=== PATIENT | male | born 1955 | race Caucasian/White ===

== ENCOUNTER 2017-03-26 16:45 | Inpatient (IN) | payer BC ==
[~2017-03-26] VITALS: Ht 172.7 cm; Wt 108.1 kg
[2017-03-26] MEDS ORDERED: SODIUM CHLOR 0.9% 1000 ML INJ 1,000 ML IV ONE ×3 (16:57→20:15)
[2017-03-26] MEDS ORDERED: VANCOMYCIN INJ 1,000 MG in SODIUM CHLOR 0.9% 250 ML INJ 250 ML IV STA (16:57)
[2017-03-26] MEDS ORDERED: PIPERACIL-TAZO 4.5 GM PREMIX 100 ML IV STA (16:57)
[2017-03-26] MEDS ORDERED: ONDANSETRON HCL 4 MG/2 ML VIAL IV PUSH ONE (17:00)
[2017-03-26] MEDS ORDERED: ACETAMINOPHEN 325 MG TAB PO ONE (17:00)
--- NOTE | 2017-03-26 17:34 | RADRPT ---
EXAM DATE/TIME: 03/26/2017 17:06 [facility] COMPARISON: No previous studies available for comparison. INDICATIONS : Fever since yesterday. flu-like symptoms since tuesday. MEDICAL HISTORY : Hypertension. SURGICAL HISTORY : Unobtainable. ENCOUNTER: Initial ACUITY: 2 days PAIN SCORE: 0/10 LOCATION: Bilateral chest FINDINGS: The cardiac silhouette is enlarged in transverse diameter. The lungs are free of acute parenchymal op acity. No effusions are identified. Osseous structures are intact. Epidural leads are present in the mid thoracic spine CONCLUSION: Cardiomegaly. No acute cardiopulmonary disease. Saulo Abdi MD on March 26, 2017 at 17:31 Board Certified Radiologist. This report was verified electronically.
[2017-03-26] MEDS ORDERED: OXYC1TAB36 PO ×2 (17:54)
[2017-03-26 17:59] VITALS: BP 122/67; PULSE 71; RESP 24; TEMP 102.8; O2SAT 97
[2017-03-26] MEDS ORDERED: OXYC-405 PO ×2 (17:59)
[2017-03-26] MEDS ORDERED: TRAZ100T10 PO (17:59)
[2017-03-26] MEDS ORDERED: MORPHINE SULFATE 2 MG/ML INJ IV PUSH ONE (18:15)
[2017-03-26] MEDS ORDERED: HYDROmorphone HCL PF 2 MG/ML VIAL IV PUSH ONE ×2 (18:45→20:15)
[2017-03-26 18:59] LABS: AUTOMATED NEUTROPHIL # 7.3 TH/MM3 (1.8-7.7); BASOPHIL % 0.2 % (0.0-2.0); EOSINOPHIL % 0.1 % (0.0-4.0); HEMATOCRIT 46.3 % (39.0-51.0); HEMOGLOBIN 16.2 GM/DL (13.0-17.0); LYMPH % 2.1 % (9.0-44.0); LYMPHOCYTE # 0.2 TH/MM3 (1.0-4.8); MEAN CELL VOLUME 92.1 FL (80.0-100.0); MEAN CORPUSCULAR HEMOGLOBIN 32.3 PG (27.0-34.0); MEAN PLATELET VOLUME 7.7 FL (7.0-11.0); MONO % 3.3 % (0.0-8.0); MONOCYTE # 0.3 TH/MM3 (0-0.9); NEUT % 94.3 % (16.0-70.0); PLATELET COUNT 152 TH/MM3 (150-450); RED BLOOD COUNT 5.02 MIL/MM3 (4.50-5.90); RED CELL DISTRIBUTION WIDTH 13.4 % (11.6-17.2); WHITE BLOOD COUNT 7.8 TH/MM3 (4.0-11.0)
[2017-03-26 19:07] LABS: INTERNATIONAL NORMALIZED RATIO 1.2 RATIO; PROTHROMBIN TIME - PATIENT 12.1 SEC (9.8-11.6)
[2017-03-26 19:10] LABS: ALT (GPT) 36 U/L (12-78)
[2017-03-26 19:12] LABS: ALKALINE PHOSPHATASE 69 U/L (45-117); AST (GOT) 31 U/L (15-37); BICARBONATE 27.7 MEQ/L (21.0-32.0); BLOOD UREA NITROGEN 22 MG/DL (7-18); CALCIUM 8.2 MG/DL (8.5-10.1); CHLORIDE 100 MEQ/L (98-107); CREATININE 1.44 MG/DL (0.60-1.30); GLOMERULAR FILTRATION RATE 50 ML/MIN (>89); GLUCOSE,RANDOM 165 MG/DL (74-106); LIPASE 59 U/L (73-393); MAGNESIUM 1.7 MG/DL (1.5-2.5); SODIUM (NA) 135 MEQ/L (136-145); TOTAL BILIRUBIN ADULT 0.4 MG/DL (0.2-1.0); TOTAL PROTEIN 6.9 GM/DL (6.4-8.2)
[2017-03-26 19:42] VITALS: BP 88/54; PULSE 64; RESP 18; O2SAT 99
[2017-03-26] MEDS ORDERED: IOHEXOL 350 MG/ML 10 ML VIAL (for RAD DIAG) IVCONTRAST ONE (20:39)
--- NOTE | 2017-03-26 20:48 | RADRPT ---
EXAM DATE/TIME: 03/26/2017 20:18 [facility] COMPARISON: No previous studies available for comparison. INDICATIONS : Trauma, slipped off bed. RADIATION DOSE: 64.08 CTDIvol (mGy) ; Tabletop CT Head MEDICAL HISTORY : Hypertension. SURGICAL HISTORY : None. ENCOUNTER: Initial ACUITY: 1 day PAIN SCALE: 5/10 LOCATION: cranial TECHNIQUE: Multiple contiguous axial images were obtained of the head. Using automated exposure control and adj ustment of the mA and/or kV according to patient size, radiation dose was kept as low as reasonably a chievable to obtain optimal diagnostic quality images. DICOM format image data is available electro nically for review and comparison. FINDINGS: CEREBRUM: The ventricles are normal for age. No evidence of midline shift, mass lesion, hemorrhage or acute in farction. No extra-axial fluid collections are seen. POSTERIOR FOSSA: The cerebellum and brainstem are intact. The 4th ventricle is midline. The cerebellopontine angle i s unremarkable. EXTRACRANIAL: The visualized portion of the orbits is intact. SKULL: The calvaria is intact. No evidence of skull fracture. CONCLUSION: No acute disease. No evidence of acute infarct, hemorrhage, mass or edema. Arnoldo Caba MD on March 26, 2017 at 20:44 Board Certified Radiologist. This report was verified electronically.
--- NOTE | 2017-03-26 21:00 | PD ---
HPI Chief Complaint: Pain: Acute or Chronic Time Seen by Provider: 16:50 Travel History International Travel<30 days: No Contact w/Intl Traveler<30days: No Traveled to known affect area: No History of Present Illness HPI 61-year-old male that presents to the ED for evaluation of pain in the back and fever. Per patient on Tuesday of this week he had CT myelogram read the did a lumbar puncture as well. Per patient ever since the procedures his been having more pain that is new to him. Per patient she's had chronic back pain for almost 4 years now. Per patient he is had nerve stimulator on his back as well as surgeries to his back. Per patient he was having this procedure done to see whether anything else can be done for him. He states they for the most part he is able to take care of his pain with his pain medications but this pain per patient feels no. Per patient since he's been feeling weak as well as having a pain that feels like somebody is hitting him with a baseball bat. Per patient is feels more like a spasm. Comes and goes. Per patient he becomes 10 out of 10. Per patient yesterday he started developing a fever and noticing that he had chills and sweats. No chest pain or shortness of breath. No urinary or bowel movement issues. Per patient she's had some nausea and vomiting for the past 2 days as well. He is not sure this is related. He states that he went to see his back doctor yesterday and he was evaluated but at the time he was vociferous that he was having more pain having no symptoms and nothing was done. They per patient told him that he might have an infection but the one specific. The did not send him to an ER told him to do anything else. He has no allergies to medication. Per patient she's been taking his pain medications with no relief. He denies any fall. Today he was on the way to come to the ER but he could not get up on his own so ambulance was called he was brought by ambulance. [facility]LY [facility] Past Medical History Diminished Hearing: Yes Hypertension: Yes Musculoskeletal: Yes (CHRONIC BACK PAIN) Influenza Vaccination: Yes Past Surgical History Other Surgery: Yes (LITHOTRIPSY) Social History Alcohol Use: Yes (OCCASIONALLY) Tobacco Use: No Substance Use: No Allergies-Medications (Allergen,Severity, Reaction): Coded Allergies: No Known Allergies (Unverified , 03/26/17) Reported Meds & Prescriptions Reported Meds & Active Scripts Active Reported Oxycodone ER (Oxycodone HCl) 20 Mg Tab 20 Mg PO Q12HR Trazodone (Trazodone HCl) 100 Mg Tablet 250 Mg PO HS Oxycodone-Acetaminophen 10-325 mg Tab 1 Tab PO Q6H PRN Review of Systems Except as stated in HPI: all other systems reviewed are Neg Physical Exam Narrative GENERAL: SKIN: Warm and dry. HEAD: Atraumatic. Normocephalic. EYES: Pupils equal and round. No scleral icterus. No injection or drainage. ENT: No nasal bleeding or discharge. Mucous membranes pink and moist. Tongue is midline. No uvula deviation. TMs are clear with no sign of infection or perforation. No lymphadenopathy noted. NECK: Trachea midline. No JVD. CARDIOVASCULAR: Regular rate and rhythm. No murmurs, S3, S4. RESPIRATORY: No accessory muscle use. Clear to auscultation. Breath sounds equal bilaterally. GASTROINTESTINAL: Abdomen soft, non-tender, nondistended. Hepatic and splenic margins not palpable. MUSCULOSKELETAL: Extremities without clubbing, cyanosis, or edema. No obvious deformities. Full range of motion of the upper and lower extremities bilaterally. 2+ pulses bilaterally. There are to palpation on the lumbar back but no obvious spinal process tenderness. Patient does not appear to have any signs of infection of the surgical sites of the lumbar area. Straight leg test negative bilaterally with exception of the right leg where he has pain with flexion of the hip. NEUROLOGICAL: Awake and alert. No obvious cranial nerve deficits. Motor grossly within normal limits. Five out of 5 muscle strength in the arms and legs. Normal speech. PSYCHIATRIC: Appropriate mood and affect; insight and judgment normal. Data Data Last Documented VS Vital Signs Date Time Temp Pulse Resp B/P (MAP) Pulse Ox O2 Delivery O2 Flow Rate FiO2 03/26/17 21:59 98.6 03/26/17 21:14 57 18 95 Room Air 03/26/17 17:59 2.00 Orders Orders Sepsis Workup Initiated (03/26/17 ) Electrocardiogram (03/26/17 16:57) Complete Blood Count With Diff (03/26/17 16:57) Comprehensive Metabolic Panel (03/26/17 16:57) Prothrombin Time / Inr (Pt) (03/26/17 16:57) Act Partial Throm Time (Ptt) (03/26/17 16:57) Lactic Acid Sepsis Protocol (03/26/17 16:57) Magnesium (Mg) (03/26/17 16:57) Lipase (03/26/17 16:57) Urinalysis - C+S If Indicated (03/26/17 16:57) Influenzae A/B Antigen (03/26/17 16:57) Blood Culture (03/26/17 16:57) Chest, Single Ap (03/26/17 16:57) Blood Glucose (03/26/17 16:57) Ecg Monitoring (03/26/17 16:57) Iv Access Insert/Monitor (03/26/17 16:57) Oximetry (03/26/17 16:57) Oxygen Administration (03/26/17 16:57) Acetaminophen (Tylenol) (03/26/17 17:00) Ondansetron Inj (Zofran Inj) (03/26/17 17:00) Sodium Chlor 0.9% 1000 Ml Inj (Ns 1000 M (03/26/17 16:57) Sodium Chlor 0.9% 1000 Ml Inj (Ns 1000 M (03/26/17 16:57) Ct Brain W/O Iv Contrast(Rout) (03/26/17 ) Ct Abd/Pel W Iv Contrast(Rout) (03/26/17 ) Vancomycin Inj (Vancomycin Inj) (03/26/17 16:57) Piperacil-Tazo 4.5 Gm Premix (Zosyn 4.5 (03/26/17 16:57) Morphine Inj (Morphine Inj) (03/26/17 18:15) Hydromorphone Pf Inj (Dilaudid Pf Inj) (03/26/17 18:45) Sodium Chlor 0.9% 1000 Ml Inj (Ns 1000 M (03/26/17 20:15) Hydromorphone Pf Inj (Dilaudid Pf Inj) (03/26/17 20:15) Iohexol 350 Inj (Omnipaque 350 Inj) (03/26/17 20:39) Admit Order (Ed Use Only) (03/26/17 22:26) Labs Laboratory Tests Test 03/26/17 17:33 03/26/17 20:40 White Blood Count 7.8 TH/MM3 Red Blood Count 5.02 MIL/MM3 Hemoglobin 16.2 GM/DL Hematocrit 46.3 % Mean Corpuscular Volume 92.1 FL Mean Corpuscular Hemoglobin 32.3 PG Mean Corpuscular Hemoglobin Concent 35.0 % Red Cell Distribution Width 13.4 % Platelet Count 152 TH/MM3 Mean Platelet Volume 7.7 FL Neutrophils (%) (Auto) 94.3 % Lymphocytes (%) (Auto) 2.1 % Monocytes (%) (Auto) 3.3 % Eosinophils (%) (Auto) 0.1 % Basophils (%) (Auto) 0.2 % Neutrophils # (Auto) 7.3 TH/MM3 Lymphocytes # (Auto) 0.2 TH/MM3 Monocytes # (Auto) 0.3 TH/MM3 Eosinophils # (Auto) 0.0 TH/MM3 Basophils # (Auto) 0.0 TH/MM3 CBC Comment DIFF FINAL Differential Comment Prothrombin Time 12.1 SEC Prothromb Time International Ratio 1.2 RATIO Activated Partial Thromboplast Time 25.9 SEC Blood Urea Nitrogen 22 MG/DL Creatinine 1.44 MG/DL Random Glucose 165 MG/DL Total Protein 6.9 GM/DL Albumin 3.0 GM/DL Calcium Level 8.2 MG/DL Magnesium Level 1.7 MG/DL Alkaline Phosphatase 69 U/L Aspartate Amino Transf (AST/SGOT) 31 U/L Alanine Aminotransferase (ALT/SGPT) 36 U/L Total Bilirubin 0.4 MG/DL Sodium Level 135 MEQ/L Potassium Level 4.4 MEQ/L Chloride Level 100 MEQ/L Carbon Dioxide Level 27.7 MEQ/L Anion Gap 7 MEQ/L Estimat Glomerular Filtration Rate 50 ML/MIN Lactic Acid Level 1.9 mmol/L Lipase 59 U/L Urine Color YELLOW Urine Turbidity CLEAR Urine pH 5.5 Urine Specific [place] 1.031 Urine Protein 30 mg/dL Urine Glucose (UA) TRACE mg/dL Urine Ketones TRACE mg/dL Urine Occult Blood NEG Urine Nitrite NEG Urine Bilirubin NEG Urine Urobilinogen LESS THAN 2.0 MG/DL Urine Leukocyte Esterase NEG Urine WBC 2 /hpf Urine Hyaline Casts 3 /lpf Urine Mucus FEW /lpf Microscopic Urinalysis Comment CATH-CULT NOT IND MDM Medical Decision Making Medical Screen Exam Complete: Yes Emergency Medical Condition: Yes Medical Record Reviewed: Yes Interpretation(s) CBC & BMP Diagram 03/26/17 17:33 Total Protein 6.9, Albumin 3.0 L, Calcium Level 8.2 L, Magnesium Level 1.7, Alkaline Phosphatase 69, Aspartate Amino Transf (AST/SGOT) 31, Alanine Aminotransferase (ALT/SGPT) 36, Total Bilirubin 0.4 lactic acid WNL Differential Diagnosis Sepsis versus UTI versus acute abdomen versus back pain versus chronic back pain versus neuropathy versus discitis versus influenza versus gastritis versus viral illness versus meningitis Narrative Course 51-year-old male that presents to the ED for evaluation of back pain. Patient was properly examined and was found to have signs and symptoms included Lee. Definite concerning as patient does have a fever 102 and tachycardia. Recent procedure to his back done on Tuesday. Symptoms worsened after this procedure. Patient also complaining of pain to his back. My attending evaluated the patient with me. Labs and imaging were ordered. We'll try to order an MRI blowfish patient cannot have it because of his nerve stimulator. CT of the abdomen was ordered as well as labs. Patient was given Tylenol for his fever. Given Dilaudid for his pain. Zofran and 3 L of fluid total. Labs and imaging showed no obvious source of the fever. Concern for meningitis, but patient has no meningial signs. Dr Brownlee spoke with radiologist who stated they can do LP in the morning as patient cannot tolerate being on his side and his body habitus will make it difficult to perform. Case discussed with Dr De Jesus who agrees to admission. Sepsis Criteria SIRS Criteria (2 or more): Temp > 100.9 or < 96.8 Diagnosis Primary Impression: Fever of unknown origin Additional Impressions: Back pain Qualified Codes: M54.5 - Low back pain Hypotension Qualified Codes: I95.9 - Hypotension, unspecified Admitting Information Admitting Physician Requests: Admit Keegan Perez Mar 26, 2017 21:00
[2017-03-26 21:05] LABS: BILIRUBIN, URINE NEG (NEG); BLOOD, URINE NEG (NEG); GLUCOSE,URINE TRACE mg/dL (NEG); HYALINE CAST, URINE 3 /lpf (RARE); KETONE, URINE TRACE mg/dL (NEG); MUCUS URINE FEW /lpf (OCC); NITRITE,URINE NEG (NEG); PH, URINE 5.5 (5.0-8.5); URINE COLOR YELLOW (YELLW/STRAW); URINE LEUKOCYTE ESTERASE NEG (NEG)
--- NOTE | 2017-03-26 21:07 | RADRPT ---
EXAM DATE/TIME: 03/26/2017 20:23 [facility] COMPARISON: No previous studies available for comparison. INDICATIONS : Nausea and vomiting for four days. IV CONTRAST: 95 cc Omnipaque 350 (iohexol) IV ORAL CONTRAST: No oral contrast ingested. RADIATION DOSE: 21.17 CTDIvol (mGy) MEDICAL HISTORY : Hypertension. SURGICAL HISTORY : None. ENCOUNTER: Initial ACUITY: 1 day PAIN SCALE: 4/10 LOCATION: abdomen TECHNIQUE: Volumetric scanning of the abdomen and pelvis was performed. Using automated exposure control and ad justment of the mA and/or kV according to patient size, radiation dose was kept as low as reasonably achievable to obtain optimal diagnostic quality images. DICOM format image data is available electro nically for review and comparison. FINDINGS: LOWER LUNGS: The visualized lower lungs are clear. LIVER: The liver appears diffusely hypodense. There is no evidence of biliary duct dilatation or space-occup kervin lesion. There are no calcified gallstones. SPLEEN: Normal size without lesion. PANCREAS: Within normal limits. KIDNEYS: Multiple nonobstructing calculi are identified in the kidneys. At least 4 calculi seen in the right k idney. The larger is measures 6 mm and is located in mid pole. At least 3 calculi are identified in t he left kidney. The largest is located in the upper pole measures 1.3 cm. A 2.5 cm simple cyst is als o noted in the midpole the left kidney. There is no evidence of hydronephrosis. ADRENAL GLANDS: Within normal limits. VASCULAR: There is no aortic aneurysm. BOWEL/MESENTERY: The stomach, small bowel, and colon demonstrate no acute abnormality. There is no free intraperitone al air or fluid. ABDOMINAL WALL: Within normal limits. RETROPERITONEUM: There is no lymphadenopathy. BLADDER: No wall thickening or mass. REPRODUCTIVE: Within normal limits. INGUINAL: There is no lymphadenopathy or hernia. MUSCULOSKELETAL: Dorsal column stimulator is identified in the lower thoracic spine. CONCLUSION: 1. Multiple bilateral nonobstructing renal calculi. No evidence of hydronephrosis. 2. Hepatic steatosis. 3. Dorsal column stimulator. 4. No acute process. Arnoldo Caba MD on March 26, 2017 at 21:00 Board Certified Radiologist. This report was verified electronically.
[2017-03-26 21:14] VITALS: BP 88/52; PULSE 57; RESP 18; O2SAT 95
[2017-03-26 21:59] VITALS: TEMP 98.6
--- NOTE | 2017-03-26 22:42 | HHI.HP ---
[facility] Non[facility]Staff Admission Diagnosis fever of unknown etiology, severe back pain, Diagnoses: (1) SIRS (systemic inflammatory response syndrome) Diagnosis: Principal (2) Intractable back pain Diagnosis: Principal (3) Renal insufficiency Diagnosis: Principal (4) Hypotension Diagnosis: Principal Travel History International Travel<30 Days: No Contact w/Intl Traveler <30 Da: No Traveled to Known Affected Are: No History of Present Illness This is a 61-year-old male with a PMH of HTN and Chronic Back Pain s/p Spinal Stimulator who presented to the ER with complaints of fever in addition to worsening back pain. Has been following w/ Dr. Lobo for c/o chronic back pain , s/p Lumbar Myelogram and LP on 03/22/17. States he's had c/o severe back pain, 10/10, non-radiating, associated w/ nausea and vomiting since procedure, yesterday had fever. Seen by Dr. Lobo in office yesterday and states he was told likely has infection. Today w/ ongoing symptoms and decided to come to ER. On arrival, BP 120/67, HR 71, O2 sat 97% on 2L NC, Temp 102.8. While in the ER, patient with transient hypotension, BP 88/54, HR 64. Responded to IVF. CBC essentially unremarkable except for elevated neutrophil count. Had a 1.44 , no bruits labs for comparison. Lactic Acid 1.9. 1.2. UA negative. CXR with no acute findings. CT Abd/Pelvis w/ multiple bilateral nonobstructing renal stones, no evidence of hydronephrosis, dorsal column stimulator, no acute process. CT Head with no acute findings. LP considered to r/o Meningitis, however unable to perform in ER, ER physician discussed w/ Radiologist, plan is for LP in am. S/p Vanc/Zosyn in ER. Review of Systems Except as stated in HPI: all other systems reviewed are Neg ROS: 14 point review of systems otherwise negative. Past Family Social History Past Medical History PMH: HTN and Chronic Back Pain s/p Spinal Stimulator Past Surgical History PAST SURGICAL HISTORY: Lithotripsy Allergies: Coded Allergies: No Known Allergies (Unverified , 03/26/17) Family History PAST FAMILY HISTORY: Reviewed. No h/o DM or CAD Social History PAST SOCIAL HISTORY: Occasional alcohol. Negative for tobacco or drugs. Physical Exam Vital Signs Vital Signs Date Time Temp Pulse Resp B/P (MAP) Pulse Ox O2 Delivery O2 Flow Rate FiO2 03/26/17 21:59 98.6 03/26/17 21:14 57 18 88/52 (64) 95 Room Air 03/26/17 19:42 64 18 88/54 (65) 99 Room Air 03/26/17 17:59 102.8 71 24 122/67 (85) 97 Nasal Cannula 2.00 03/26/17 17:48 96 Nasal Cannula 2.00 Physical Exam PE: GENERAL: Middle aged male in no acute distress. HEENT: PERRLA, EOMI. No scleral icterus or conjunctival pallor. No lid lag or facial droop. CARDIOVASCULAR: Regular rate and rhythm. No obvious murmurs to auscultation. No chest tenderness to palpation. RESPIRATORY: No obvious rhonchi or wheezing. Clear to auscultation. Breath sounds equal bilaterally. GASTROINTESTINAL: Abdomen soft, non-tender, nondistended. BS normal. MUSCULOSKELETAL: Extremities without clubbing, cyanosis, or edema. No obvious deformities. NEUROLOGICAL: Awake, alert and oriented x4. No focal neurologic deficits. Moving both upper and lower extremities spontaneously. Laboratory Laboratory Tests Test 03/26/17 17:33 03/26/17 20:40 White Blood Count 7.8 Red Blood Count 5.02 Hemoglobin 16.2 Hematocrit 46.3 Mean Corpuscular Volume 92.1 Mean Corpuscular Hemoglobin 32.3 Mean Corpuscular Hemoglobin Concent 35.0 Red Cell Distribution Width 13.4 Platelet Count 152 Mean Platelet Volume 7.7 Neutrophils (%) (Auto) 94.3 Lymphocytes (%) (Auto) 2.1 Monocytes (%) (Auto) 3.3 Eosinophils (%) (Auto) 0.1 Basophils (%) (Auto) 0.2 Neutrophils # (Auto) 7.3 Lymphocytes # (Auto) 0.2 Monocytes # (Auto) 0.3 Eosinophils # (Auto) 0.0 Basophils # (Auto) 0.0 CBC Comment DIFF FINAL Differential Comment Prothrombin Time 12.1 Prothromb Time International Ratio 1.2 Activated Partial Thromboplast Time 25.9 Blood Urea Nitrogen 22 Creatinine 1.44 Random Glucose 165 Total Protein 6.9 Albumin 3.0 Calcium Level 8.2 Magnesium Level 1.7 Alkaline Phosphatase 69 Aspartate Amino Transf (AST/SGOT) 31 Alanine Aminotransferase (ALT/SGPT) 36 Total Bilirubin 0.4 Sodium Level 135 Potassium Level 4.4 Chloride Level 100 Carbon Dioxide Level 27.7 Anion Gap 7 Estimat Glomerular Filtration Rate 50 Lactic Acid Level 1.9 Lipase 59 Urine Color YELLOW Urine Turbidity CLEAR Urine pH 5.5 Urine Specific [place] 1.031 Urine Protein 30 Urine Glucose (UA) TRACE Urine Ketones TRACE Urine Occult Blood NEG Urine Nitrite NEG Urine Bilirubin NEG Urine Urobilinogen LESS THAN 2.0 Urine Leukocyte Esterase NEG Urine WBC 2 Urine Hyaline Casts 3 Urine Mucus FEW Microscopic Urinalysis Comment CATH-CULT NOT IND Date/Time Source Procedure Growth Status 03/26/17 17:38 Blood Peripheral Aerobic Blood Culture Pending Received 03/26/17 17:38 Blood Peripheral Anaerobic Blood Culture Pending Received 03/26/17 17:33 Nasal Washing Influenza Types A,B Antigen (BUFFY) - Final NEGATIVE FOR FLU A AND B ANTIGEN.... Complete Result Diagram: 03/26/17 1733 03/26/17 1733 Caprini VTE Risk Assessment Caprini VTE Risk Assessment: No/Low Risk (score <= 1) Caprini Risk Assessment Model Point Value = 1 Point Value = 2 Point Value = 3 Point Value = 5 Age 41-60 Minor surgery BMI > 25 kg/m2 Swollen legs Varicose veins or History of unexplained or recurrent spontaneous Oral contraceptives or hormone replacement Sepsis (< 1 month) Serious lung disease, including pneumonia (< 1 month) Abnormal pulmonary function Acute myocardial infarction Congestive heart failure (< 1 month) History of inflammatory bowel disease Medical patient at bed rest Age 61-74 Arthroscopic surgery Major open surgery (> 45 min) Laparoscopic surgery (> 45 min) Malignancy Confined to bed (> 72 hours) Immobilizing plaster cast Central venous access Age >= 75 History of VTE Family history of VTE Factor V Leiden Prothrombin [id number] Lupus anticoagulant Anticardiolipin antibodies Elevated serum homocysteine Heparin-induced thrombocytopenia Other congenital or acquired thrombophilia Stroke (< 1 month) Elective arthroplasty Hip, pelvis, or leg fracture Acute spinal cord injury (< 1 month) Prophylaxis Regimen Total Risk Factor Score Risk Level Prophylaxis Regimen 0-1 Low Early ambulation 2 Moderate Order ONE of the following: *Sequential Compression Device (SCD) *Heparin 5000 units SQ BID 3-4 Higher Order ONE of the following medications: *Heparin 5000 units SQ TID *Enoxaparin/Lovenox 40 mg SQ daily (WT < 150 kg, CrCl > 30 mL/min) *Enoxaparin/Lovenox 30 mg SQ daily (WT < 150 kg, CrCl > 10-29 mL/min) *Enoxaparin/Lovenox 30 mg SQ BID (WT < 150 kg, CrCl > 30 mL/min) AND/OR *Sequential Compression Device (SCD) 5 or more Highest Order ONE of the following medications: *Heparin 5000 units SQ TID (Preferred with Epidurals) *Enoxaparin/Lovenox 40 mg SQ daily (WT < 150 kg, CrCl > 30 mL/min) *Enoxaparin/Lovenox 30 mg SQ daily (WT < 150 kg, CrCl > 10-29 mL/min) *Enoxaparin/Lovenox 30 mg SQ BID (WT < 150 kg, CrCl > 30 mL/min) AND *Sequential Compression Device (SCD) Assessment and Plan Problem List: (1) SIRS (systemic inflammatory response syndrome) ICD Code: R65.10 - Systemic inflammatory response syndrome (SIRS) of non- infectious origin without acute organ dysfunction (2) Intractable back pain ICD Code: M54.9 - Dorsalgia, unspecified (3) Hypotension ICD Code: I95.9 - Hypotension, unspecified (4) Renal insufficiency ICD Code: N28.9 - Disorder of kidney and ureter, unspecified Assessment and Plan A/P: 1. SIRS: Temp 102.8, WBC normal however elevated neutrophil count. Source unclear, however s/p Myelogram/LP, r/o Meningitis although less likely. LP unable to be done in ER, discussed w/ Radiologist, plan is for LP in am. IVF for hydration, s/p Blood Cultures, will follow. Continue w/ IV Abx, repeat labs in am. CXR w/ no acute findings, images reviewed by me. U/a negative. 2. Intractable Back Pain: h/o chronic back pain, follows w/ Dr. Lobo, s/p Spinal Stimulator, now w/ severe exacerbation. Analgesics/antiemetics, Valium prn for muscle spasm. 3. Renal Insufficiency: Creatinine 1.44, no previous labs for comparison, presumably new. He UA negative. IVF for hydration, repeat labs in a.m. 4. Hypotension: Transient, likely secondary to acute infection. BP 88/52, HR 64, s/p IVF w/ good response, monitor closely in light of SIRS/early sepsis. 5. DVT Prophylaxis: SCD/Teds. 6. Social work for d/c planning as needed. 7. Labs/imaging/records reviewed by me, case discussed w/ ER physician at length. Physician Certification 2 Midnight Certification Type: Admission for Inpatient Services Order for Inpatient Services The services are ordered in accordance with Medicare regulations or non- Medicare payer requirements, as applicable. In the case of services not specified as inpatient-only, they are appropriately provided as inpatient services in accordance with the 2-midnight benchmark. Estimated LOS (days): 2 days is the estimated time the patient will need to remain in the hospital, assuming treatment plan goals are met and no additional complications. Post-Hospital Plan: Not yet determined Darcie De Jesus MD Mar 26, 2017 22:42
[2017-03-26] MEDS ORDERED: MAGNESIUM HYDROXIDE SUSP 30 ML CUP PO PRN (22:45)
[2017-03-26] MEDS ORDERED: SODIUM CHLORIDE 0.9% FLUSH 10 ML FLUSH IV FLUSH PRN (22:45)
[2017-03-26] MEDS ORDERED: BISACODYL 10 MG SUPP RECTAL PRN (22:45)
[2017-03-26] MEDS ORDERED: Vancomycin Consult Pharmacy 1 EA OTHER SCH (22:45)
[2017-03-26 22:50] VITALS: BP 99/57; PULSE 78; RESP 18; O2SAT 98
[2017-03-26 23:30] VITALS: BP 114/67
[2017-03-27] VITALS (10 sets, daily range): BP systolic 117–155; BP diastolic 60–73; PULSE 55–77; RESP 18–20; TEMP 99.4–103.1; O2SAT 93–99
[2017-03-27] MEDS: SODIUM CHLOR 0.9% 1000 ML INJ 1,000 ML IV SCH ×3 (00:01→12:04)
[2017-03-27] MEDS: VANCOMYCIN 1,000 MG/NS 250 ML IV SCH ×6 (00:02→23:03)
[2017-03-27] MEDS: ACETAMINOPHEN/HYDROcodone 325 MG/5 MG TAB PO PRN ×4 (00:04→23:04)
[2017-03-27] MEDS ORDERED: TIZA4CAP3 PO (00:38)
[2017-03-27] MEDS ORDERED: LORA1TAB12 PO (00:39)
[2017-03-27] MEDS: traZODone HCL 100 MG TAB PO SCH (01:08)
[2017-03-27] MEDS: HYDROmorphone HCL PF 2 MG/ML VIAL IV PUSH PRN ×4 (03:44→19:21)
--- NOTE | 2017-03-27 06:53 | PD.ORT.PN ---
Subjective Subjective Remarks Pt known to Dr Lobo presents via ambulance for intractable back pain. previously seen in office by Yamil and underwent CT myelogram with lumbar puncture earlier this week. States since then, has had increased back pain and fever/chills. reports pain with any movenment and inability to walk or ambulate. denies and numbness, tingling, or radiation of symptoms. Objective Vitals Vital Signs Date Time Temp Pulse Resp B/P (MAP) Pulse Ox O2 Delivery O2 Flow Rate FiO2 03/27/17 04:03 60 03/27/17 04:02 100.5 67 18 131/60 (83) 98 03/27/17 00:59 60 03/27/17 00:18 99 Nasal Cannula 2.00 03/27/17 00:00 99.4 59 18 117/65 (82) 99 03/26/17 23:39 03/26/17 23:30 114/67 (83) 03/26/17 22:50 78 18 99/57 (71) 98 Nasal Cannula 2.00 03/26/17 21:59 98.6 03/26/17 21:14 57 18 88/52 (64) 95 Room Air 03/26/17 19:42 64 18 88/54 (65) 99 Room Air 03/26/17 17:59 102.8 71 24 122/67 (85) 97 Nasal Cannula 2.00 03/26/17 17:48 96 Nasal Cannula 2.00 I/O 03/26/17 03/26/17 03/26/17 03/27/17 03/27/17 03/27/17 07:00 15:00 23:00 07:00 15:00 23:00 Intake Total 5350 ml 1180 ml Output Total 300 ml Balance 5050 ml 1180 ml Intake Oral 480 ml IV Total 5350 ml 700 ml Output Urine Total 300 ml # Voids 1 # Bowel Movements 0 Result Diagram: 03/26/17 1733 03/26/17 1733 Other Results Laboratory Tests Test 03/26/17 17:33 Prothromb Time International Ratio 1.2 RATIO Prothrombin Time 12.1 SEC (9.8-11.6) Imaging Last 24 hours Impressions Chest X-Ray 03/26/17 5747 Signed Impressions: Service Date/Time: Sunday, March 26, 2017 17:06 - CONCLUSION: Cardiomegaly. No acute cardiopulmonary disease. Saulo Abdi MD Objective Remarks BLE: no pain with ankle, knee, or hip rotation. pain in back with hip flexion. full sensation distally with no apparent deficits. Assessment & Plan Assessment and Plan 1) Intractable back pain -WBAT -normal diet -medical management -will defer to Dr Lobo for care starting on tuesday Kaleb Ramey/First Nnamdi ACE Mar 27, 2017 06:53
[2017-03-27] MEDS: ACETAMINOPHEN 325 MG TAB PO PRN ×2 (07:42→20:15)
[2017-03-27] MEDS: SENNOSIDES 8.6 MG TAB PO PRN (07:43)
[2017-03-27] MEDS: DOCUSATE SODIUM 50 MG/SENNA 8.6 MG TAB PO SCH ×2 (07:43→20:15)
[2017-03-27] MEDS: ONDANSETRON HCL 4 MG/2 ML VIAL IVP PRN ×2 (07:47→22:55)
[2017-03-27] MEDS: SODIUM CHLORIDE 0.9% FLUSH 10 ML FLUSH IV FLUSH SCH ×2 (07:51→20:16)
[2017-03-27 08:54] LABS: AUTOMATED NEUTROPHIL # 5.7 TH/MM3 (1.8-7.7); BASOPHIL % 0.3 % (0.0-2.0); EOSINOPHIL % 0.1 % (0.0-4.0); HEMATOCRIT 46.1 % (39.0-51.0); HEMOGLOBIN 15.7 GM/DL (13.0-17.0); LYMPH % 7.2 % (9.0-44.0); LYMPHOCYTE # 0.5 TH/MM3 (1.0-4.8); MEAN CELL VOLUME 93.7 FL (80.0-100.0); MEAN CORPUSCULAR HEMOGLOBIN 31.9 PG (27.0-34.0); MEAN PLATELET VOLUME 7.6 FL (7.0-11.0); MONO % 7.6 % (0.0-8.0); MONOCYTE # 0.5 TH/MM3 (0-0.9); NEUT % 84.8 % (16.0-70.0); PLATELET COUNT 130 TH/MM3 (150-450); RED BLOOD COUNT 4.92 MIL/MM3 (4.50-5.90); RED CELL DISTRIBUTION WIDTH 13.7 % (11.6-17.2); WHITE BLOOD COUNT 6.7 TH/MM3 (4.0-11.0)
[2017-03-27] MEDS ORDERED: CEFEPIME INJ 1,000 MG in SODIUM CHLORIDE 0.9% INJ 100 ML IV SCH (09:00)
[2017-03-27 09:10] LABS: ALBUMIN 2.6 GM/DL (3.4-5.0); AST (GOT) 20 U/L (15-37); BICARBONATE 22.1 MEQ/L (21.0-32.0); BLOOD UREA NITROGEN 14 MG/DL (7-18); CALCIUM 7.7 MG/DL (8.5-10.1); CHLORIDE 106 MEQ/L (98-107); CREATININE 1.16 MG/DL (0.60-1.30); GLOMERULAR FILTRATION RATE 64 ML/MIN (>89); GLUCOSE,RANDOM 108 MG/DL (74-106); SODIUM (NA) 137 MEQ/L (136-145)
[2017-03-27 09:13] LABS: ALKALINE PHOSPHATASE 63 U/L (45-117); ALT (GPT) 27 U/L (12-78); TOTAL BILIRUBIN ADULT 0.4 MG/DL (0.2-1.0); TOTAL PROTEIN 6.2 GM/DL (6.4-8.2)
[2017-03-27] MEDS: DIAZEPAM 5 MG TAB PO PRN (12:11)
--- NOTE | 2017-03-27 12:37 | EKG ---
Date Performed: 03/26/2017 Time Performed: 17:49:23 PTAGE: 61 years EKG: Sinus rhythm RIGHT BUNDLE BRANCH BLOCK ABNORMAL ECG NO PREVIOUS TRACING DOCTOR: Rony Smith Interpretating Date/Time 03/27/2017 12:37:28
[2017-03-27] MEDS: cefTRIAXone INJ 2,000 MG in SODIUM CHLORIDE 0.9% INJ 100 ML IV SCH (18:00)
--- NOTE | 2017-03-27 18:57 | MB ---
cc: BELINDA HARLEY MD DATE OF CONSULTATION 03/27/[address] Winslow REASON FOR CONSULTATION Fever of unknown origin. HISTORY OF THE PRESENT ILLNESS This is a 61-year-old white male who presented to the emergency department yesterday evening with severe pain in the lower back. The patient reports that he had chronic pain for many years and was taken a lot of narcotic pain medications and he went for a myelogram evaluation six days ago. He stated that after the myelogram he started having severe back pain and he also had decreased appetite and occasional headache and then started developing fever and chills. The pain increased significantly on the day before he presented to the emergency department. In the emergency department he had temperature of 98.6. His temperature however went up to 102.8 and he was given Tylenol and started on antibiotics after cultures were taken. Temperature roseline again to 103.1 degrees this morning and it is up again this afternoon as well. Urinalysis was taken and showed 2 white cells and a culture was not obtained. Chest x-ray showed no acute cardiopulmonary disease. CT scan of abdomen and pelvis showed multiple bilateral nonobstructing renal calculi and no evidence of hydronephrosis. CT scan of the head showed no acute disease. A lumbar puncture has been ordered but not yet done. The patient tells me now that he is getting a headache. He describes pain in his lower back as mostly intense and with spasms. He states that its different from the back pain he has had over the years. His white blood cell count is normal. Blood cultures have no growth in one day. The patient states that the pain is very intense with movement. The patient has a TENS unit for pain control which has been in for approximately 5 years. He states that it has functioned well except for recently, that he thinks the battery is dying. A Lee catheter was inserted and has very light yellow urine. The patient states that he had no fevers prior to the myelogram which was performed on 03/22/2017. The patient denies exposure to unusual pets. He traveled to [place] three months ago. He denies exposure to sick persons. He denies upper respiratory symptoms. PAST MEDICAL HISTORY 1. Chronic back pain. 2. Hypertension. 3. Lithotripsy. 4. Spinal stimulator. ALLERGIES NO KNOWN DRUG ALLERGIES. MEDICATIONS 1. Cefepime. 2. Vancomycin. 3. Zanaflex. 4. Fanny-Colace. 5. Desyrel. 6. [place] 5 as needed. 7. Senokot. 8. Dilaudid as needed. SOCIAL HISTORY The patient is . No tobacco. Occasional alcohol. No illicit drugs. FAMILY HISTORY Noncontributory. REVIEW OF SYSTEMS CONSTITUTIONAL: Significant for fever and chills. HEENT: Denies visual difficulties. Denies nasal drainage. Denies soreness of the throat. CARDIOVASCULAR: Denies palpitation or chest pain. RESPIRATORY: Denies cough or sputum production. GASTROINTESTINAL: Reports nausea and constipation. GENITOURINARY: Denies urinary frequency or dysuria. MUSCULOSKELETAL: Notes pain in the lower back. ENDOCRINE: Denies polyuria or polydipsia. NEUROLOGIC: Denies problems with coordination. PSYCHIATRIC: Denies depression or mood changes. PHYSICAL EXAMINATION GENERAL: This is a well-developed male who is in moderate distress because of pain. VITAL SIGNS: Temperature 101.4, blood pressure 142/73, respirations 18, heart rate 73. HEENT: Head atraumatic. Extraocular movements grossly intact, pupils reactive to light. No icterus. Oropharynx moist mucosa without lesions. NECK: Supple without swelling or adenopathy. LUNGS: Clear, decreased breath sounds. HEART: Regular S1-S2. No murmurs. No rubs. No gallops audible. ABDOMEN: Bowel sounds present but decreased, soft, nontender. BACK: Tenderness of the lower back. No erythema visible. RECTAL: Not performed. EXTREMITIES: No clubbing, cyanosis or edema. SKIN: No visible rash. NEUROLOGIC: No gross focal findings. The patient has some weakness in the lower extremities. PSYCHIATRIC: The patient is calm and cooperative. LABORATORY DATA WBC 6.7, platelets 130. Hemoglobin 15.7, 83% neutrophils. Creatinine 1.16, BUN 14. Estimated GFR 64. Sodium 137. Liver function tests normal. Lipase normal. Influenza test negative. IMPRESSION 1. Fever of unknown origin. There is unclear etiology. The patient with negative chest x-ray and blood cultures are also unremarkable. He is status post myelogram and fever could be related to that procedure. He had intractable back pain and it could be related to back issues from before, but he states that the pain is of a different characteristic and it is not clear whether it may be related to infection in the lower back. The white blood cell count is normal, however. 2. Patient with headache along with the fevers. Rule out meningitis. RECOMMENDATIONS 1. Continue vancomycin. 2. Change the cefepime to ceftriaxone. 3. Repeat urine culture. 4. Monitor blood culture. 5. Monitor temperature. 6. Monitor clinical status. 7. Monitor lumbar puncture results once that is performed. Thank you for this consultation. I will follow the patient's progress along with you and make further recommendations upon followup if necessary. Belinda Harley MD FD/KK /5:12 PM /6:06 PM [email or web address]
--- NOTE | 2017-03-27 21:39 | HHI.PR ---
Subjective Remarks patient complainingback pain and headache today He denied urinary or stool incontinence, decreased urine output Objective Vitals Vital Signs Date Time Temp Pulse Resp B/P (MAP) Pulse Ox O2 Delivery O2 Flow Rate FiO2 03/27/17 20:00 102.1 75 20 155/72 (99) 95 03/27/17 16:22 101.4 73 18 142/73 (96) 93 03/27/17 12:05 99.6 62 18 117/61 (79) 96 03/27/17 10:21 55 03/27/17 09:27 101.6 03/27/17 08:01 Room Air 03/27/17 08:00 103.1 77 18 149/68 (95) 93 03/27/17 04:03 60 03/27/17 04:02 100.5 67 18 131/60 (83) 98 03/27/17 00:59 60 03/27/17 00:18 99 Nasal Cannula 2.00 03/27/17 00:00 99.4 59 18 117/65 (82) 99 03/26/17 23:39 03/26/17 23:30 114/67 (83) 03/26/17 22:50 78 18 99/57 (71) 98 Nasal Cannula 2.00 03/26/17 21:59 98.6 I/O 03/26/17 03/26/17 03/26/17 03/27/17 03/27/17 03/27/17 07:00 15:00 23:00 07:00 15:00 23:00 Intake Total 5350 ml 1180 ml 2367 ml Output Total 300 ml 150 ml Balance 5050 ml 1180 ml 2217 ml Intake Oral 480 ml 960 ml IV Total 5350 ml 700 ml 1407 ml Output Urine Total 300 ml 150 ml Bladder Scan Volume Amount 400 ml 400 ml # Voids 1 2 # Bowel Movements 0 0 Result Diagram: 03/27/17 0811 03/27/17 0811 Objective Remarks GENERAL: Middle aged male in no acute distress. HEENT: PERRLA, EOMI. No scleral icterus or conjunctival pallor. No lid lag or facial droop. CARDIOVASCULAR: Regular rate and rhythm. No obvious murmurs to auscultation. No chest tenderness to palpation. RESPIRATORY: No obvious rhonchi or wheezing. Clear to auscultation. Breath sounds equal bilaterally. GASTROINTESTINAL: Abdomen soft, non-tender, nondistended. BS normal. MUSCULOSKELETAL: Extremities without clubbing, cyanosis, or edema. No obvious deformities. NEUROLOGICAL: Awake, alert and oriented x4. No focal neurologic deficits. Moving both upper and lower extremities spontaneously. A/P Problem List: (1) SIRS (systemic inflammatory response syndrome) ICD Code: R65.10 - Systemic inflammatory response syndrome (SIRS) of non- infectious origin without acute organ dysfunction (2) Intractable back pain ICD Code: M54.9 - Dorsalgia, unspecified (3) Hypotension ICD Code: I95.9 - Hypotension, unspecified (4) Renal insufficiency ICD Code: N28.9 - Disorder of kidney and ureter, unspecified Assessment and Plan 1. SIRS: Temp 102.8, WBC normal however elevated neutrophil count. Source unclear, however s/p Myelogram/LP, r/o Meningitis although less likely. plan is for LP . IVF for hydration, s/p Blood Cultures, will follow. Continue w/ IV Abx, repeat labs in am. CXR w/ no acute findings, i. U/a negative. 2. Intractable Back Pain: h/o chronic back pain, follows w/ Dr. Lobo, s/p Spinal Stimulator, now w/ severe exacerbation. Analgesics/antiemetics, Valium prn for muscle spasm. 3. Renal Insufficiency: Creatinine 1.44, no previous labs for comparison, presumably new. He UA negative. IVF for hydration, repeat labs in a.m. 4. Hypotension: Transient, likely secondary to acute infection. BP 88/52, HR 64, s/p IVF w/ good response, monitor closely in light of SIRS/early sepsis. 5. DVT Prophylaxis: SCD/Teds. 03/27/17: Continue IV antibiotic, consult ID, monitor urine output i&o, CBC in a.m. Mamie Winslow MD Mar 27, 2017 21:39
[2017-03-27] MEDS ORDERED: PHARMACY ORDERED LAB ONE (22:45)
[2017-03-28] VITALS (9 sets, daily range): BP systolic 106–174; BP diastolic 68–80; PULSE 56–91; RESP 16–19; TEMP 97.9–100.4; O2SAT 92–95
[2017-03-28] MEDS: traZODone HCL 100 MG TAB PO SCH ×2 (01:17→21:00)
[2017-03-28] MEDS: HYDROmorphone HCL PF 2 MG/ML VIAL IV PUSH PRN ×4 (01:24→20:49)
[2017-03-28] MEDS: ACETAMINOPHEN/HYDROcodone 325 MG/5 MG TAB PO PRN ×4 (04:59→22:30)
[2017-03-28] MEDS: DIAZEPAM 5 MG TAB PO PRN ×2 (05:03→17:54)
[2017-03-28] MEDS: SODIUM CHLOR 0.9% 1000 ML INJ 1,000 ML IV SCH ×2 (05:07→12:04)
[2017-03-28] MEDS: cefTRIAXone INJ 2,000 MG in SODIUM CHLORIDE 0.9% INJ 100 ML IV SCH ×2 (06:00→17:54)
[2017-03-28] MEDS: LACTULOSE SYRUP 20 GM/30 ML CUP PO PRN (08:55)
[2017-03-28] MEDS: DOCUSATE SODIUM 50 MG/SENNA 8.6 MG TAB PO SCH ×2 (08:55→20:48)
[2017-03-28] MEDS: SODIUM CHLORIDE 0.9% FLUSH 10 ML FLUSH IV FLUSH SCH ×2 (08:57→20:46)
[2017-03-28] MEDS: VANCOMYCIN 1,000 MG/NS 250 ML IV SCH ×2 (12:03)
--- NOTE | 2017-03-28 12:17 | HHI.IDPN ---
Note Infectious Disease Note Patient continues to have fever and severe back pain. Temp spiking up to 102. Denies chills. Cultures pending. 61-year-old white male who presented to the emergency department yesterday evening with severe pain in the lower back. The patient reports that he had chronic pain for many years and was taking a lot of narcotic pain medications and he went for a myelogram evaluation six days ago. He stated that after the myelogram he started having severe back pain and he also had decreased appetite and occasional headache and then started developing fever and chills. The patient has a TENS unit for pain control which has been in for approximately 5 years. He states that it has functioned well except for recently, that he thinks the battery is dying. The patient reported that he had no fevers prior to the myelogram which was performed on 03/22/2017. PAST MEDICAL HISTORY 1. Chronic back pain. 2. Hypertension. 3. Lithotripsy. 4. Spinal stimulator. ALLERGIES NO KNOWN DRUG ALLERGIES. MEDICATIONS 1. Ceftriaxone. 2. Vancomycin. PHYSICAL EXAMINATION GENERAL: Moderate distress because of pain. HEENT: Head atraumatic. Extraocular movements grossly intact, pupils reactive to light. No icterus. Oropharynx moist mucosa without lesions. NECK: Supple without swelling or adenopathy. LUNGS: Clear breath sounds. HEART: Regular S1-S2. No murmurs, rub or gallops. ABDOMEN: Bowel sounds present but decreased, soft, nontender. BACK: Tenderness of the lower back. No erythema visible. EXTREMITIES: No clubbing, cyanosis or edema. SKIN: No visible rash. NEUROLOGIC: No gross focal findings. The patient has some weakness in the lower extremities. PSYCHIATRIC: Calm and cooperative. IMPRESSION 1. Fever of unknown origin. There is unclear etiology. The patient with negative chest x-ray and blood cultures are also unremarkable. He is status post myelogram and fever could be related to that procedure. He had intractable back pain and it could be related to back issues from before, but he states that the pain is of a different characteristic and it is not clear whether it may be related to infection in the lower back. The white blood cell count is normal, however. 2. Patient with headache along with the fevers. Rule out meningitis. RECOMMENDATIONS 1. Continue vancomycin. 2. Continue Ceftriaxone. 3. Follow cultures. 4. Consult Neurosurgery. 5. Monitor temperature. 6. Monitor clinical status. 7. Lumbar puncture for evaluation. Yanick Sykes MD Mar 28, 2017 12:17
--- NOTE | 2017-03-28 15:12 | HHI.PR ---
Subjective Remarks seen post LP awake and alert, T down complains of pain- worsening back pain since last Tuesday myelogram procedure- unable to move or turn over denies any urinary or fecal incontinence Objective Vitals Vital Signs Date Time Temp Pulse Resp B/P (MAP) Pulse Ox O2 Delivery O2 Flow Rate FiO2 03/28/17 12:00 97.9 56 18 106/68 (81) 95 03/28/17 08:00 99.7 70 18 115/80 (92) 95 03/28/17 05:45 100.3 74 16 143/74 (97) 95 03/28/17 00:00 100.4 70 18 174/77 (109) 94 03/27/17 20:00 102.1 75 20 155/72 (99) 95 03/27/17 16:22 101.4 73 18 142/73 (96) 93 I/O 03/27/17 03/27/17 03/27/17 03/28/17 03/28/17 03/28/17 07:00 15:00 23:00 07:00 15:00 23:00 Intake Total 1180 ml 2367 ml 480 ml 360 ml Output Total 150 ml 1150 ml 850 ml Balance 1180 ml 2217 ml -670 ml -490 ml Intake Oral 480 ml 960 ml 480 ml 360 ml IV Total 700 ml 1407 ml Output Urine Total 150 ml 1150 ml 850 ml Bladder Scan Volume Amount 400 ml 400 ml # Voids 1 2 # Bowel Movements 0 0 0 0 Result Diagram: 03/27/17 0811 03/27/17 0811 Imaging Last Impressions Lumbar Puncture Fluoroscopy 03/28/17 0000 Signed Impressions: Service Date/Time: Tuesday, March 28, 2017 15:14 - CONCLUSION: Uncomplicated fluoroscopically guided lumbar puncture. Calixto Caldwell MD Chest X-Ray 03/26/17 1657 Signed Impressions: Service Date/Time: Sunday, March 26, 2017 17:06 - CONCLUSION: Cardiomegaly. No acute cardiopulmonary disease. Saulo Abdi MD Head CT 03/26/17 0000 Signed Impressions: Service Date/Time: Sunday, March 26, 2017 20:18 - CONCLUSION: No acute disease. No evidence of acute infarct, hemorrhage, mass or edema. Arnoldo Caba MD Abdomen/Pelvis CT 03/26/17 0000 Signed Impressions: Service Date/Time: Sunday, March 26, 2017 20:23 - CONCLUSION: 1. Multiple bilateral nonobstructing renal calculi. No evidence of hydronephrosis. 2. Hepatic steatosis. 3. Dorsal column stimulator. 4. No acute process. Arnoldo Caba MD Objective Remarks awake and alert, oriented x 3 no nuchal rigidity anicteric lungs clear regular rhythm abdomen soft, nontender villar in place extremities no edema moves toes and feet freely grossly no sensory deficits + excruciating pain of the low back with flexion and movement of knees and back - deferred/hold further motor testing Procedures 03/28- LP Urinary Catheter: Yes Assessment to: Continue Villar insert reason: Surgical/Invasive Proced Date of Insertion: Mar 28, 2017 A/P Problem List: (1) SIRS (systemic inflammatory response syndrome) ICD Code: R65.10 - Systemic inflammatory response syndrome (SIRS) of non- infectious origin without acute organ dysfunction (2) Intractable back pain ICD Code: M54.9 - Dorsalgia, unspecified (3) Hypotension ICD Code: I95.9 - Hypotension, unspecified (4) Renal insufficiency ICD Code: N28.9 - Disorder of kidney and ureter, unspecified Assessment and Plan 61 years old male FUO/SIRS: Temp 102.8, WBC normal however elevated neutrophil count. Source unclear with history of recent s/p Myelogram for back pain work up S/P LP 03/28 IVF for hydration, s/p Blood Cultures, will follow. Continue w/ IV Abx- Vancomycin and zosyn CXR w/ no acute findings, U/a negative. ID ff Intractable Back Pain: h/o chronic back pain, follows w/ Dr. Lobo, s/p Spinal Stimulator, now w/ severe exacerbation. Analgesics/antiemetics, Valium prn for muscle spasm. no fecal or urinary incontinence Orthopedics ff PT consult/eval tomorrow Acute Renal Insufficiency: Creatinine 1.44,- creatinine improved. IVF for hydration ff Hypotension: Transient. Improved, continue IVF and antibiotics DVT Prophylaxis: SCD/Teds. Liliana Hope MD Mar 28, 2017 15:12
--- NOTE | 2017-03-28 15:31 | PD.RAD ---
Post Procedure Progress Note Pre Procedure Diagnosis: (1) Intractable back pain Post Procedure Diagnosis: (1) Intractable back pain (2) Fever of unknown origin Procedure Date: Mar 28, 2017 Supervising Radiologist: Calixto Caldwell Proceduralist/Assist: Jessi Ellis, RT(R), Yesi Morales RT(R)() Anesthesia: Local Plan of Activity Patient to Unit: Nursing Unit Patient Condition: Good Additional Comments: single puncture at l3-4. minimally serosang CSF fluid See PACS Report for procedural detail/treatment Calixto Caldwell MD Mar 28, 2017 15:31
--- NOTE | 2017-03-28 15:51 | RADRPT ---
EXAM DATE/TIME: 03/28/2017 15:14 [facility] COMPARISON: No previous studies available for comparison. INDICATIONS : Patient with a history of fever. MEDICAL HISTORY : HTN Chronic back pain SURGICAL HISTORY : Spinal stimulator Lithotripsy ENCOUNTER: Initial ACUITY: 4 -6 days PAIN SCORE: 10/10 LOCATION: back LUMBAR PUNCTURE TIME: 1524 hours FLUORO TIME: 0.4 minutes IMAGE SERIES: 1 ACCESS LEVEL: L3-4 FLUID: 13 cc of cloudy, minimally serosanguineous CSF was collected and sent to the laboratory for analysis. PROCEDURE : 1. Fluoroscopic guided lumbar puncture. The risks, benefits and alternatives to the procedure were explained and verbal and written consent w as obtained. The site was prepped in sterile fashion. Full sterile technique was used, including ca p, mask, sterile gloves and gown and a large sterile sheet. Hand hygiene and 2% chlorhexidine and/or betadine/alcohol prep was utilized per protocol for cutaneous antisepsis. The skin and subcutaneous tissues were infiltrated with local anesthetic solution. With fluoroscopic guidance the lumbar thecal sac was punctured at the level above following a single puncture. The fluid described above was removed without difficulty. The patient tolerated the procedure well and there were no complications. CONCLUSION: Uncomplicated fluoroscopically guided lumbar puncture. Calixto Caldwell MD on March 28, 2017 at 15:48 Board Certified Radiologist. This report was verified electronically.
[2017-03-28 16:30] LABS: TOTAL PROTEIN,CSF 119.4 MG/DL (15.0-45.0)
[2017-03-28 16:57] LABS: RBC TUBE #4 1305 /MM3; SUPERNATE COLOR TUBE #1 SLIGHTLY XANTHOCHROM (CLEAR); VOLUME TUBE # 1 3.2 ML; WBC TUBE #4 105 /MM3 (0-10)
[2017-03-28 16:58] LABS: CSF LYMPHOCYTES 3 %; CSF MONOCYTES 4 %; CSF NEUTROPHILS 93 %
--- NOTE | 2017-03-28 18:57 | PD.ORT.PN ---
Subjective Subjective Remarks Reports fevers chills. Denies nausea vomiting. Minimal headaches currently. Objective Vitals Vital Signs Date Time Temp Pulse Resp B/P (MAP) Pulse Ox O2 Delivery O2 Flow Rate FiO2 03/28/17 16:00 99.5 60 19 146/73 (97) 95 03/28/17 12:00 97.9 56 18 106/68 (81) 95 03/28/17 08:00 99.7 70 18 115/80 (92) 95 03/28/17 05:45 100.3 74 16 143/74 (97) 95 03/28/17 00:00 100.4 70 18 174/77 (109) 94 03/27/17 20:00 102.1 75 20 155/72 (99) 95 I/O 03/27/17 03/27/17 03/27/17 03/28/17 03/28/17 03/28/17 06:59 14:59 22:59 06:59 14:59 22:59 Intake Total 1180 ml 2367 ml 480 ml 360 ml 720 ml Output Total 150 ml 1150 ml 850 ml 400 ml Balance 1180 ml 2217 ml -670 ml -490 ml 320 ml Intake Oral 480 ml 960 ml 480 ml 360 ml 720 ml IV Total 700 ml 1407 ml Output Urine Total 150 ml 1150 ml 850 ml 400 ml Bladder Scan Volume Amount 400 ml 400 ml # Voids 1 2 # Bowel Movements 0 0 0 0 1 Result Diagram: 03/27/17 0811 03/27/17 0811 Imaging Last 24 hours Impressions Chest X-Ray 03/26/17 [id number] Signed Impressions: Service Date/Time: Sunday, March 26, 2017 17:06 - CONCLUSION: Cardiomegaly. No acute cardiopulmonary disease. Saulo Abdi MD Objective Remarks BLE: no pain with ankle, knee, or hip rotation. pain in back with hip flexion. full sensation distally with no apparent deficits. Assessment & Plan Assessment and Plan 61yo male with chronic low back pain, s/p over 15yrs of treatment in [place] with DCS in place and PMR in [place], with intractable low back pain after myelogram last week Agree with infectious work-up. Patient appeared in clinic with reported fevers and chills. Also, reports losing crown from his upper gumline last week and his concern about infection around that area. LP performed given intractable pain and reported headaches. Will follow results. I suspicious for possible arachnoiditis. Could consider repeating CT lumbar spine if pain persists to evaluate further. Mariaa Lobo MD Mar 28, 2017 18:57
[2017-03-29] VITALS (13 sets, daily range): BP systolic 105–158; BP diastolic 55–78; PULSE 57–89; RESP 18; TEMP 97–100.5; O2SAT 91–95
[2017-03-29] MEDS ORDERED: VANCOMYCIN INJ 1,600 MG in SODIUM CHLORID 0.9% 500 ML INJ 500 ML IV SCH ×2
[2017-03-29] MEDS: HYDROmorphone HCL PF 2 MG/ML VIAL IV PUSH PRN ×4 (01:05→17:55)
[2017-03-29] MEDS: ACETAMINOPHEN/HYDROcodone 325 MG/5 MG TAB PO PRN ×5 (03:30→21:32)
[2017-03-29] MEDS: DIAZEPAM 5 MG TAB PO PRN ×3 (03:30→21:32)
[2017-03-29] MEDS: SODIUM CHLOR 0.9% 1000 ML INJ 1,000 ML IV SCH ×3 (03:31→16:11)
[2017-03-29] MEDS: cefTRIAXone INJ 2,000 MG in SODIUM CHLORIDE 0.9% INJ 100 ML IV SCH ×2 (06:40→19:25)
[2017-03-29 06:53] LABS: CREATININE 0.87 MG/DL (0.60-1.30)
[2017-03-29] MEDS: DOCUSATE SODIUM 50 MG/SENNA 8.6 MG TAB PO SCH ×2 (09:00→21:00)
[2017-03-29] MEDS: SODIUM CHLORIDE 0.9% FLUSH 10 ML FLUSH IV FLUSH SCH ×2 (09:58→21:00)
--- NOTE | 2017-03-29 11:26 | HHI.IDPN ---
Note Infectious Disease Note Patient continues to have fever and severe back pain. yelling from pain on being moved from laying on his back to his side. Notes pain goes across the lower back. Feels like spasms. Also says he gets pain down his legs. Has villar catheter. Temp still spiking but t max is lower. Denies chills. Had LP. CSF cultures pending. CSF nl glucose. 105 WBC, 93% neutrophils. 61-year-old white male who presented to the emergency department yesterday evening with severe pain in the lower back. The patient reports that he had chronic pain for many years and was taking a lot of narcotic pain medications and he went for a myelogram evaluation six days ago. He stated that after the myelogram he started having severe back pain and he also had decreased appetite and occasional headache and then started developing fever and chills. The patient has a TENS unit for pain control which has been in for approximately 5 years. He states that it has functioned well except for recently, that he thinks the battery is dying. The patient reported that he had no fevers prior to the myelogram which was performed on 03/22/2017. PAST MEDICAL HISTORY 1. Chronic back pain. 2. Hypertension. 3. Lithotripsy. 4. Spinal stimulator. ALLERGIES NO KNOWN DRUG ALLERGIES. MEDICATIONS 1. Ceftriaxone. 2. Vancomycin. PHYSICAL EXAMINATION GENERAL: Moderate distress because of pain. HEENT: Head atraumatic. Extraocular movements grossly intact, pupils reactive to light. No icterus. Oropharynx moist mucosa without lesions. NECK: Supple without swelling or adenopathy. LUNGS: Clear breath sounds. HEART: Regular S1-S2. No murmurs, rub or gallops. ABDOMEN: Bowel sounds present but decreased, soft, nontender. BACK: No tenderness on palpation of the lower back. No erythema visible. No erythema over the TENS. No fluctuance. EXTREMITIES: No clubbing, cyanosis or edema. SKIN: No visible rash. NEUROLOGIC: No gross focal findings. Weakness in the lower extremities. PSYCHIATRIC: Calm and cooperative. IMPRESSION 1. Fever of unknown origin. Unclear etiology. Patient with negative chest x-ray and blood cultures are also unremarkable. He is status post myelogram and fever could be related to that procedure. He had intractable back pain and it could be related to back issues from before, but he states that the pain is of a different characteristic and it is not clear whether it may be related to infection in the lower back. The white blood cell count is normal, however. 2. Rule out meningitis. RECOMMENDATIONS 1. Continue vancomycin. 2. Continue Ceftriaxone. 3. Follow cultures. 4. Neurosurgery consulted. 5. Monitor temperature. 6. Monitor clinical status. 7. Monitor CSf culture. Being followed by orthopedics. Yanick Sykes MD Mar 29, 2017 11:26
--- NOTE | 2017-03-29 11:40 | HHI.PR ---
Subjective Remarks patient with severe pain across the lower back with minimal leg movement, goes into spasms T max 100 Objective Vitals Vital Signs Date Time Temp Pulse Resp B/P (MAP) Pulse Ox O2 Delivery O2 Flow Rate FiO2 03/29/17 07:49 99.4 79 18 145/69 (94) 91 03/29/17 07:09 18 03/29/17 06:47 70 03/29/17 04:32 18 03/29/17 03:50 98.8 89 18 105/55 (72) 95 03/29/17 00:20 100.2 86 18 154/70 (98) 94 03/28/17 23:53 87 03/28/17 20:59 99.7 91 18 149/71 (97) 92 03/28/17 19:46 74 03/28/17 19:46 74 03/28/17 16:00 99.5 60 19 146/73 (97) 95 03/28/17 12:00 97.9 56 18 106/68 (81) 95 I/O 03/28/17 03/28/17 03/28/17 03/29/17 03/29/17 03/29/17 07:00 15:00 23:00 07:00 15:00 23:00 Intake Total 360 ml 720 ml 480 ml 1876 ml 100 ml Output Total 850 ml 400 ml 650 ml 450 ml Balance -490 ml 320 ml -170 ml 1426 ml 100 ml Intake Oral 360 ml 720 ml 480 ml 360 ml IV Total 1516 ml 100 ml Output Urine Total 850 ml 400 ml 650 ml 450 ml # Bowel Movements 0 1 0 0 Result Diagram: 03/27/17 0811 03/29/17 0551 Imaging Last Impressions Lumbar Puncture Fluoroscopy 03/28/17 0000 Signed Impressions: Service Date/Time: Tuesday, March 28, 2017 15:14 - CONCLUSION: Uncomplicated fluoroscopically guided lumbar puncture. Calixto Caldwell MD Chest X-Ray 03/26/17 1397 Signed Impressions: Service Date/Time: Sunday, March 26, 2017 17:06 - CONCLUSION: Cardiomegaly. No acute cardiopulmonary disease. Saulo Abdi MD Head CT 03/26/17 0000 Signed Impressions: Service Date/Time: Sunday, March 26, 2017 20:18 - CONCLUSION: No acute disease. No evidence of acute infarct, hemorrhage, mass or edema. Arnoldo Caba MD Abdomen/Pelvis CT 03/26/17 0000 Signed Impressions: Service Date/Time: Sunday, March 26, 2017 20:23 - CONCLUSION: 1. Multiple bilateral nonobstructing renal calculi. No evidence of hydronephrosis. 2. Hepatic steatosis. 3. Dorsal column stimulator. 4. No acute process. Arnoldo Caba MD Objective Remarks awake and alert, oriented x 3 no nuchal rigidity anicteric lungs clear regular rhythm abdomen soft, nontender villar in place extremities no edema moves toes and feet freely grossly no sensory deficits + excruciating pain of the low back with flexion and movement of knees and back - deferred/hold further motor testing + SLR- bilateral Procedures 03/28- LP Date of Insertion: Mar 28, 2017 A/P Problem List: (1) SIRS (systemic inflammatory response syndrome) ICD Code: R65.10 - Systemic inflammatory response syndrome (SIRS) of non- infectious origin without acute organ dysfunction (2) Intractable back pain ICD Code: M54.9 - Dorsalgia, unspecified (3) Hypotension ICD Code: I95.9 - Hypotension, unspecified (4) Renal insufficiency ICD Code: N28.9 - Disorder of kidney and ureter, unspecified Assessment and Plan 61 years old male FUO/SIRS: Temp 102.8, WBC normal however elevated neutrophil count. Source unclear with history of recent s/p Myelogram for back pain work up S/P LP 03/28 IVF for hydration, s/p Blood Cultures, will follow. Continue w/ IV Abx- Vancomycin and zosyn CXR w/ no acute findings, U/a negative. ID ff Intractable Back Pain: h/o chronic back pain, follows w/ Dr. Lobo, s/p Spinal Stimulator, now w/ severe exacerbation. Analgesics/antiemetics, Valium prn for muscle spasm. no fecal or urinary incontinence Orthopedics ff consider getting an imaging study of the back Acute Renal Insufficiency: Creatinine 1.44,- creatinine improved. IVF for hydration ff Hypotension: Transient. Improved, continue IVF and antibiotics DVT Prophylaxis: SCD/Teds. Liliana Hope MD Mar 29, 2017 11:40
--- NOTE | 2017-03-29 11:42 | PD.ORT.PN ---
Subjective Subjective Remarks Patient reports he continues to feel like he has fevers and chills. Denies headaches or neck pain. Denies nausea or vomiting. Reports persistent low back pain. States intermittent leg pain but mostly leg cramps rather then actual radiculopathy. Denies perianal numbness or tingling. Reports he was able to urinate without difficulty prior to Lee catheter being placed. Objective Vitals Vital Signs Date Time Temp Pulse Resp B/P (MAP) Pulse Ox O2 Delivery O2 Flow Rate FiO2 03/29/17 07:49 99.4 79 18 145/69 (94) 91 03/29/17 07:09 18 03/29/17 06:47 70 03/29/17 04:32 18 03/29/17 03:50 98.8 89 18 105/55 (72) 95 03/29/17 00:20 100.2 86 18 154/70 (98) 94 03/28/17 23:53 87 03/28/17 20:59 99.7 91 18 149/71 (97) 92 03/28/17 19:46 74 03/28/17 19:46 74 03/28/17 16:00 99.5 60 19 146/73 (97) 95 03/28/17 12:00 97.9 56 18 106/68 (81) 95 I/O 03/28/17 03/28/17 03/28/17 03/29/17 03/29/17 03/29/17 06:59 14:59 22:59 06:59 14:59 22:59 Intake Total 360 ml 1200 ml 1876 ml 100 ml Output Total 850 ml 1050 ml 450 ml Balance -490 ml 150 ml 1426 ml 100 ml Intake Oral 360 ml 1200 ml 360 ml IV Total 1516 ml 100 ml Output Urine Total 850 ml 1050 ml 450 ml # Bowel Movements 0 1 0 Result Diagram: 03/27/17 0811 03/29/17 0551 Imaging Last 24 hours Impressions Chest X-Ray 03/26/17 1833 Signed Impressions: Service Date/Time: Sunday, March 26, 2017 17:06 - CONCLUSION: Cardiomegaly. No acute cardiopulmonary disease. Saulo Abdi MD Objective Remarks Awake, alert, no acute distress. Bilateral lower extremities: Unable to fully assess strength as patient is positioned laterally. But does demonstrate active range of motion at hip and knee ankle and toes without difficulty. Positive knee flexion, extension, dorsiflexion, plantar flexion, EHL and FHL without difficulty. Sensation intact throughout. Brisk cap refill. Assessment & Plan Assessment and Plan 61yo male with chronic low back pain, s/p over 15yrs of treatment in [place] with DCS in place and PMR in [place], with intractable low back pain after myelogram last week. Patient remains neurologically intact. Differential diagnosis includes possible arachnoiditis, less likely meningitis, possible abscess. Patient with persistent fevers. At this point, LP performed awaiting results. Very mildly elevated white blood cells in LP. With this in mind, would consider CT of the lumbar spine with and without contrast to evaluate for possible abscess or osteo. Mariaa Lobo MD Mar 29, 2017 11:42
[2017-03-29] MEDS: VANCOMYCIN INJ 1,500 MG in SODIUM CHLORID 0.9% 500 ML INJ 500 ML IV SCH (16:39)
[2017-03-29] MEDS ORDERED: IOHEXOL 350 MG/ML 10 ML VIAL (for RAD DIAG) IVCONTRAST ONE (17:29)
--- NOTE | 2017-03-29 18:02 | RADRPT ---
EXAM DATE/TIME: 03/29/2017 17:26 [facility] COMPARISON: No previous studies available for comparison. INDICATIONS : Back pain. IV CONTRAST: 100 cc Omnipaque 350 (iohexol) IV RADIATION DOSE: 38.79 CTDIvol (mGy) MEDICAL HISTORY : Hypertension. Rheumatoid arthritis. SURGICAL HISTORY : None. ENCOUNTER: Initial ACUITY: 1 day PAIN SCALE: 6/10 LOCATION: Bilateral lumbar TECHNIQUE: Volumetric scanning of the lumbar spine was performed. Multiplanar reconstructions in the sagittal, coronal and oblique axial planes were performed. Using automated exposure control and adjustment of the mA and/or kV according to patient size, radiation dose was kept as low as reasonably achievable t o obtain optimal diagnostic quality images. DICOM format image data is available electronically for review and comparison. FINDINGS: Lumbar spine alignment is normal. Vertebral bodies have normal height. Tiny bubbles of gas are seen posterior to the L4 and L5 vertebral bodies. I believe the gas is intrad ural and presumably related to recent lumbar puncture. No abscess or other drainable fluid is demonst rated. There is a [id number] left paracentral disc protrusion combine with moderate bilateral facet o steoarthritis and thickening of the ligamentum flavum at L4/L5. Associated mild spinal stenosis and m ild bilateral foraminal stenosis. There is a small, broad/diffuse disc protrusion with mild bilateral facet osteoarthritis at L5/S1. Th ere is mild right and mild to moderate left foraminal stenosis. The patient has a spinal stimulator. Leads entered the epidural space at the T11/T12 level. No percep tible complication. Small effusions and dependent atelectasis seen in the visualized lung bases. CONCLUSION: 1. Tiny bubbles of gas within the central canal at L4 and L5, appearing to be intrathecal and presuma jude iatrogenic. No abscess is demonstrated. 2. Lower lumbar degenerative changes as above. 3. Spinal stimulator leads are partly included on the study. No evidence an associated acute complica tion. 4. No fracture or subluxation. Daron Christianson MD on March 29, 2017 at 17:55 Board Certified Radiologist. This report was verified electronically.
[2017-03-29] MEDS: traZODone HCL 100 MG TAB PO SCH (21:00)
[2017-03-30] VITALS (8 sets, daily range): BP systolic 141–165; BP diastolic 67–83; PULSE 60–87; RESP 18; TEMP 99.1–101.3; O2SAT 92–95
[2017-03-30] MEDS: HYDROmorphone HCL PF 2 MG/ML VIAL IV PUSH PRN ×3 (02:06→21:17)
[2017-03-30] MEDS: ACETAMINOPHEN 325 MG TAB PO PRN (02:09)
[2017-03-30] MEDS: VANCOMYCIN INJ 1,500 MG in SODIUM CHLORID 0.9% 500 ML INJ 500 ML IV SCH ×2 (03:35→16:08)
[2017-03-30] MEDS: cefTRIAXone INJ 2,000 MG in SODIUM CHLORIDE 0.9% INJ 100 ML IV SCH ×2 (06:31→18:20)
[2017-03-30] MEDS: ACETAMINOPHEN/HYDROcodone 325 MG/5 MG TAB PO PRN ×3 (06:33→18:20)
--- NOTE | 2017-03-30 07:19 | PD.ORT.PN ---
Subjective Subjective Remarks Low-grade temps over the last 24 hours, maximum 100.2. Denies nausea vomiting. Minimal headaches currently. Objective Vitals Vital Signs Date Time Temp Pulse Resp B/P (MAP) Pulse Ox O2 Delivery O2 Flow Rate FiO2 03/30/17 04:23 77 03/30/17 03:54 100.2 81 18 154/67 (96) 92 03/30/17 03:07 17 03/30/17 02:36 18 03/30/17 00:56 Room Air 03/30/17 00:13 61 03/29/17 23:33 18 03/29/17 23:32 97.0 72 18 146/69 (94) 94 03/29/17 20:18 69 03/29/17 19:18 100.5 87 18 158/77 (104) 92 03/29/17 18:11 61 03/29/17 16:04 57 03/29/17 15:36 100.1 85 18 152/78 (102) 95 03/29/17 13:20 68 03/29/17 12:00 99.6 84 18 141/69 (93) 93 03/29/17 11:55 66 03/29/17 07:49 99.4 79 18 145/69 (94) 91 I/O 03/29/17 03/29/17 03/29/17 03/30/17 03/30/17 03/30/17 07:00 15:00 23:00 07:00 15:00 23:00 Intake Total 1876 ml 5850 ml 480 ml 720 ml Output Total 450 ml 650 ml 650 ml 650 ml Balance 1426 ml 5200 ml -170 ml 70 ml Intake Oral 360 ml 650 ml 480 ml 720 ml IV Total 1516 ml 5200 ml Output Urine Total 450 ml 650 ml 650 ml 650 ml # Bowel Movements 0 0 0 Result Diagram: 03/27/17 0811 03/29/17 0551 Imaging Last 24 hours Impressions Chest X-Ray 03/26/17 4067 Signed Impressions: Service Date/Time: Sunday, March 26, 2017 17:06 - CONCLUSION: Cardiomegaly. No acute cardiopulmonary disease. Saulo Abdi MD Objective Remarks Sleeping but arousable, no acute distress. Bilateral lower extremities: Appears neurovascular intact throughout. Unable to fully assess strength but motor appears grossly intact. Sensation intact throughout. Brisk cap refill. Assessment & Plan Assessment and Plan 61yo male with chronic low back pain, s/p over 15yrs of treatment in [place] with DCS in place and PMR in [place], with intractable low back pain after myelogram last week. Patient remains neurologically intact. Differential diagnosis includes possible arachnoiditis, less likely meningitis, possible abscess. Patient also believes his dorsal column stimulator generator is no longer functioning. I explained to the patient that this would be something that would need to be addressed at a later date when he no longer has signs of infection and likely by his pain management physician who placed it in [place]. At this time, CT of the lumbar spine does not demonstrate any appreciable abscess. Would recommend continued infection workup by infectious disease and medicine. No plan for surgical intervention from an orthopedic standpoint at this time. Mariaa Lobo MD Mar 30, 2017 07:19
[2017-03-30] MEDS: DOCUSATE SODIUM 50 MG/SENNA 8.6 MG TAB PO SCH ×2 (09:01→21:00)
[2017-03-30] MEDS: SODIUM CHLORIDE 0.9% FLUSH 10 ML FLUSH IV FLUSH SCH ×2 (09:02→21:00)
[2017-03-30] MEDS: SODIUM CHLOR 0.9% 1000 ML INJ 1,000 ML IV SCH ×2 (09:02→16:13)
--- NOTE | 2017-03-30 12:55 | HHI.PR ---
Subjective Remarks low grade fever persistent severe low back pain - "across the back" even with minimal body movement and leg movements no headaches nausea or vomiting 1:55 pm- went back to check on patient denies any chest pain on discomfort- laying on his side Objective Vitals Vital Signs Date Time Temp Pulse Resp B/P (MAP) Pulse Ox O2 Delivery O2 Flow Rate FiO2 03/30/17 12:00 99.4 67 18 141/77 (98) 95 03/30/17 11:16 17 03/30/17 08:00 99.9 87 18 153/72 (99) 94 03/30/17 04:23 77 03/30/17 03:54 100.2 81 18 154/67 (96) 92 03/30/17 03:07 17 03/30/17 02:36 18 03/30/17 00:56 Room Air 03/30/17 00:13 61 03/29/17 23:32 97.0 72 18 146/69 (94) 94 03/29/17 20:18 69 03/29/17 19:18 100.5 87 18 158/77 (104) 92 03/29/17 18:11 61 03/29/17 16:04 57 03/29/17 15:36 100.1 85 18 152/78 (102) 95 03/29/17 13:20 68 I/O 03/29/17 03/29/17 03/29/17 03/30/17 03/30/17 03/30/17 07:00 15:00 23:00 07:00 15:00 23:00 Intake Total 1876 ml 5850 ml 580 ml 1750 ml 100 ml Output Total 450 ml 650 ml 650 ml 650 ml Balance 1426 ml 5200 ml -70 ml 1100 ml 100 ml Intake Oral 360 ml 650 ml 480 ml 720 ml IV Total 1516 ml 5200 ml 100 ml 1030 ml 100 ml Output Urine Total 450 ml 650 ml 650 ml 650 ml # Bowel Movements 0 0 0 Result Diagram: 03/27/17 0811 03/29/17 0551 Imaging Last Impressions Lumbar Spine CT 03/29/17 0000 Signed Impressions: Service Date/Time: Wednesday, March 29, 2017 17:26 - CONCLUSION: 1. Tiny bubbles of gas within the central canal at L4 and L5, appearing to be intrathecal and presumably iatrogenic. No abscess is demonstrated. 2. Lower lumbar degenerative changes as above. 3. Spinal stimulator leads are partly included on the study. No evidence an associated acute complication. 4. No fracture or subluxation. Daron Christianson MD Lumbar Puncture Fluoroscopy 03/28/17 0000 Signed Impressions: Service Date/Time: Tuesday, March 28, 2017 15:14 - CONCLUSION: Uncomplicated fluoroscopically guided lumbar puncture. Calixto Caldwell MD Chest X-Ray 03/26/17 1657 Signed Impressions: Service Date/Time: Sunday, March 26, 2017 17:06 - CONCLUSION: Cardiomegaly. No acute cardiopulmonary disease. Saulo Abdi MD Head CT 03/26/17 0000 Signed Impressions: Service Date/Time: Sunday, March 26, 2017 20:18 - CONCLUSION: No acute disease. No evidence of acute infarct, hemorrhage, mass or edema. Arnoldo Caba MD Abdomen/Pelvis CT 03/26/17 0000 Signed Impressions: Service Date/Time: Sunday, March 26, 2017 20:23 - CONCLUSION: 1. Multiple bilateral nonobstructing renal calculi. No evidence of hydronephrosis. 2. Hepatic steatosis. 3. Dorsal column stimulator. 4. No acute process. Arnoldo Caba MD Objective Remarks awake and alert, oriented x 3, T max 100.5 no nuchal rigidity anicteric lungs clear regular rhythm abdomen soft, nontender villar in place extremities no edema moves toes and feet freely grossly no sensory deficits + excruciating pain of the low back with even minimal turning and with bending of knees grossly no sensory deficits + SLR- bilateral Procedures 03/28- LP Urinary Catheter: Yes Assessment to: Continue Villar insert reason: Prolonged Immobilization Date of Insertion: Mar 28, 2017 A/P Problem List: (1) SIRS (systemic inflammatory response syndrome) ICD Code: R65.10 - Systemic inflammatory response syndrome (SIRS) of non- infectious origin without acute organ dysfunction (2) Intractable back pain ICD Code: M54.9 - Dorsalgia, unspecified (3) Hypotension ICD Code: I95.9 - Hypotension, unspecified (4) Renal insufficiency ICD Code: N28.9 - Disorder of kidney and ureter, unspecified Assessment and Plan 61 years old male FUO/SIRS: Source unclear with history of recent s/p Myelogram for severe back pain r/op disciitis S/P LP 03/28 IVF for hydration, Blood Cultures negative so far , will follow. Spinal fluid studies cultures pending. add AFB studies Continue w/ IV Abx- Vancomycin and Rocephin CXR w/ no acute findings, U/a negative. ID ff Intractable Back Pain: h/o chronic back pain, follows w/ Dr. Lobo, s/p Spinal Stimulator, now w/ severe exacerbation. Analgesics/antiemetics, Valium prn for muscle spasm. no fecal or urinary incontinence Orthopedics ff CT - no abscess as OP was on Oxycontin 20 mg po bid- restart and Hydrocodone 10 q 4 prn, IV Dilaudid prn for severe pain trial of fentanyl patch x1 Neurosurgery consulted Acute Renal Insufficiency: Creatinine 1.44,- creatinine improved. IVF for hydration ff Hypotension: Transient. Improved, continue IVF and antibiotics DVT Prophylaxis: SCD/Teds. Liliana Hope MD Mar 30, 2017 12:55
[2017-03-30] MEDS: REMOVE OLD FENTANYL PATCH T-DERMAL SCH (13:15)
[2017-03-30] MEDS ORDERED: fentaNYL 25 MCG/HR PATCH T-DERMAL ONE (13:15)
[2017-03-30] MEDS: oxyCODONE HCL 20 MG CONTROLLED RELEASE TAB PO SCH ×2 (14:36→21:00)
--- NOTE | 2017-03-30 17:46 | HHI.IDPN ---
Note Infectious Disease Note Patient continues to have fever and severe back pain. Temp is lower. Denies chills. CT of the spine noted. Had LP. CSF cultures pending. CSF nl glucose. 105 WBC, 93% neutrophils. 61-year-old white male who presented to the emergency department yesterday evening with severe pain in the lower back. The patient reports that he had chronic pain for many years and was taking a lot of narcotic pain medications and he went for a myelogram evaluation six days ago. He stated that after the myelogram he started having severe back pain and he also had decreased appetite and occasional headache and then started developing fever and chills. The patient has a TENS unit for pain control which has been in for approximately 5 years. He states that it has functioned well except for recently, that he thinks the battery is dying. The patient reported that he had no fevers prior to the myelogram which was performed on 03/22/2017. PAST MEDICAL HISTORY 1. Chronic back pain. 2. Hypertension. 3. Lithotripsy. 4. Spinal stimulator. ALLERGIES NO KNOWN DRUG ALLERGIES. MEDICATIONS 1. Ceftriaxone. 2. Vancomycin. OBJECTIVE: Vital Signs Date Time Temp Pulse Resp B/P (MAP) Pulse Ox O2 Delivery O2 Flow Rate FiO2 03/30/17 16:00 99.1 60 18 153/83 (106) 94 03/30/17 15:46 16 03/30/17 15:46 16 03/30/17 12:00 99.4 67 18 141/77 (98) 95 03/30/17 11:16 17 03/30/17 08:00 99.9 87 18 153/72 (99) 94 03/30/17 04:23 77 03/30/17 03:54 100.2 81 18 154/67 (96) 92 03/30/17 03:07 17 03/30/17 02:36 18 03/30/17 00:56 Room Air 03/30/17 00:13 61 03/29/17 23:32 97.0 72 18 146/69 (94) 94 03/29/17 20:18 69 03/29/17 19:18 100.5 87 18 158/77 (104) 92 03/29/17 18:11 59 Laboratory Tests Test 03/29/17 05:51 Creatinine 0.87 MG/DL Estimat Glomerular Filtration Rate 89 ML/MIN Microbiology Date/Time Source Procedure Growth Status 03/28/17 15:24 Cerebral Spinal Fluid Lumbar Puncture Fungal Smear - Final NO FUNGAL ELEMENTS SEEN. Resulted 03/28/17 15:24 Cerebral Spinal Fluid Lumbar Puncture Fungal Culture Pending Resulted 03/28/17 15:24 Cerebral Spinal Fluid Lumbar Puncture Gram Stain - Final Resulted 03/28/17 15:24 Cerebral Spinal Fluid Lumbar Puncture CSF Culture - Preliminary NO GROWTH IN 48 HOURS. Resulted IMAGING: Lumbar Spine CT 03/29/17 0000 Signed Impressions: Service Date/Time: Wednesday, March 29, 2017 17:26 - CONCLUSION: 1. Tiny bubbles of gas within the central canal at L4 and L5, appearing to be intrathecal and presumably iatrogenic. No abscess is demonstrated. 2. Lower lumbar degenerative changes as above. 3. Spinal stimulator leads are partly included on the study. No evidence an associated acute complication. 4. No fracture or subluxation. Daron Christianson MD Lumbar Puncture Fluoroscopy 03/28/17 0000 Signed Impressions: Service Date/Time: Tuesday, March 28, 2017 15:14 - CONCLUSION: Uncomplicated fluoroscopically guided lumbar puncture. Calixto Caldwell MD Chest X-Ray 03/26/17 [id number] Signed Impressions: Service Date/Time: Sunday, March 26, 2017 17:06 - CONCLUSION: Cardiomegaly. No acute cardiopulmonary disease. Saulo Abdi MD Head CT 03/26/17 0000 Signed Impressions: Service Date/Time: Sunday, March 26, 2017 20:18 - CONCLUSION: No acute disease. No evidence of acute infarct, hemorrhage, mass or edema. Arnoldo Caba MD Abdomen/Pelvis CT 03/26/17 0000 Signed Impressions: Service Date/Time: Sunday, March 26, 2017 20:23 - CONCLUSION: 1. Multiple bilateral nonobstructing renal calculi. No evidence of hydronephrosis. 2. Hepatic steatosis. 3. Dorsal column stimulator. 4. No acute process. Arnoldo Caab MD PHYSICAL EXAMINATION GENERAL: Moderate distress because of pain. HEENT: Head atraumatic. Extraocular movements grossly intact, pupils reactive to light. No icterus. Oropharynx moist mucosa without lesions. NECK: Supple without swelling or adenopathy. LUNGS: Clear breath sounds. HEART: Regular S1-S2. No murmurs, rub or gallops. ABDOMEN: Bowel sounds present but decreased, soft, nontender. BACK: No tenderness on palpation of the lower back. No erythema visible. No erythema over the TENS. EXTREMITIES: No clubbing, cyanosis or edema. SKIN: No visible rash. NEUROLOGIC: No gross focal findings. Weakness in the lower extremities. PSYCHIATRIC: Calm and cooperative. IMPRESSION 1. Fever of unknown origin. Unclear etiology. Patient with negative chest x-ray and blood cultures are also unremarkable. He is status post myelogram and fever could be related to that procedure. He had intractable back pain and it could be related to back issues from before, but he states that the pain is of a different characteristic and it is not clear whether it may be related to infection in the lower back. The white blood cell count is normal, however. 2. No evidence of meningitis on CSF. 3. Probable infection related to the TENS unit. RECOMMENDATIONS 1. Continue vancomycin. 2. Continue Ceftriaxone. 3. Follow cultures. 4. Await neurosurgery consult. Consider removal of the TENS unit. 5. Monitor temperature. 6. Monitor clinical status. Yanick Sykes MD Mar 30, 2017 17:46
[2017-03-30] MEDS: traZODone HCL 100 MG TAB PO SCH ×2 (21:00→21:16)
[2017-03-31] VITALS (8 sets, daily range): BP systolic 102–161; BP diastolic 55–80; PULSE 54–87; RESP 16–19; TEMP 96.8–99.9; O2SAT 93–97
[2017-03-31] MEDS: ACETAMINOPHEN/HYDROcodone 325 MG/5 MG TAB PO PRN ×6 (00:03→22:39)
[2017-03-31] MEDS: DIAZEPAM 5 MG TAB PO PRN ×3 (02:10→17:04)
[2017-03-31] MEDS: SODIUM CHLOR 0.9% 1000 ML INJ 1,000 ML IV SCH ×2 (02:11→11:27)
[2017-03-31] MEDS ORDERED: PHARMACY ORDERED LAB ONE (03:45)
[2017-03-31] MEDS: VANCOMYCIN INJ 1,500 MG in SODIUM CHLORID 0.9% 500 ML INJ 500 ML IV SCH ×2 (03:55→22:39)
[2017-03-31] MEDS: cefTRIAXone INJ 2,000 MG in SODIUM CHLORIDE 0.9% INJ 100 ML IV SCH ×2 (05:40→15:25)
[2017-03-31] MEDS: oxyCODONE HCL 20 MG CONTROLLED RELEASE TAB PO SCH ×2 (07:33→20:50)
[2017-03-31] MEDS: DOCUSATE SODIUM 50 MG/SENNA 8.6 MG TAB PO SCH ×2 (07:33→20:48)
[2017-03-31] MEDS: SODIUM CHLORIDE 0.9% FLUSH 10 ML FLUSH IV FLUSH SCH ×2 (07:38→20:50)
--- NOTE | 2017-03-31 08:09 | PD.ORT.PN ---
Subjective Subjective Remarks Low-grade temps over the last 24 hours. Denies nausea vomiting. Minimal headaches currently. Objective Vitals Vital Signs Date Time Temp Pulse Resp B/P (MAP) Pulse Ox O2 Delivery O2 Flow Rate FiO2 03/31/17 07:41 96.9 54 19 129/74 (92) 97 03/31/17 07:41 Room Air 03/31/17 04:00 99.9 77 18 153/70 (97) 93 03/31/17 02:10 Room Air 03/31/17 00:36 99.4 73 18 102/61 (75) 93 03/30/17 21:15 70 03/30/17 20:20 101.3 87 18 165/69 (101) 95 03/30/17 16:00 99.1 60 18 153/83 (106) 94 03/30/17 15:46 16 03/30/17 15:46 16 03/30/17 12:00 99.4 67 18 141/77 (98) 95 03/30/17 11:16 17 I/O 03/30/17 03/30/17 03/30/17 03/31/17 03/31/17 03/31/17 07:00 15:00 23:00 07:00 15:00 23:00 Intake Total 1750 ml 460 ml 720 ml 480 ml Output Total 650 ml 725 ml 700 ml 1000 ml Balance 1100 ml -265 ml 20 ml -520 ml Intake Oral 720 ml 360 ml 720 ml 480 ml IV Total 1030 ml 100 ml Output Urine Total 650 ml 725 ml 700 ml 1000 ml # Bowel Movements 0 1 1 0 Result Diagram: 03/27/17 0811 03/29/17 0551 Imaging Last 24 hours Impressions Chest X-Ray 03/26/17 1657 Signed Impressions: Service Date/Time: Sunday, March 26, 2017 17:06 - CONCLUSION: Cardiomegaly. No acute cardiopulmonary disease. Saulo Abdi MD Objective Remarks Sleeping but arousable, no acute distress. Refuses to cooperate fully with exam. Bilateral lower extremities: Appears neurovascular intact throughout. Unable to fully assess strength but motor appears grossly intact. Sensation intact throughout. Brisk cap refill. Reports back pain with hip flexion Assessment & Plan Assessment and Plan 61yo male with chronic low back pain, s/p over 15yrs of treatment in [place] with DCS in place and PMR in [place], with intractable low back pain after myelogram last week. Patient appears grossly neurologically intact Differential diagnosis includes possible arachnoiditis, less likely meningitis, or possible other systemic illness. Patient also believes his dorsal column stimulator generator is no longer functioning. I explained to the patient that this would be something that would need to be addressed at a later date when he no longer has signs of infection and likely by his pain management physician who placed it in [place]. Without imaging showing fluid or infection about the DCS, I would not recommend acute removal or generator replacement as they could subsequently become infected given his fevers and systemic signs of infection. At this time, CT of the lumbar spine does not demonstrate any appreciable abscess, and even noted on CT that no signs of acute complication about DCS leads at edge of CT. Would recommend continued infection workup by infectious disease and medicine. CT appears stable from myelogram one week ago. Would not recommend acute surgical intervention for his chronic findings given his systemic signs of infection. No plan for surgical intervention at this time. Mariaa Lobo MD Mar 31, 2017 08:09
[2017-03-31] MEDS: HYDROmorphone HCL PF 2 MG/ML VIAL IV PUSH PRN ×3 (09:39→17:04)
--- NOTE | 2017-03-31 12:49 | HHI.IDPN ---
Note Infectious Disease Note Patient continues to have fever and severe back pain. Spiked temp last night. Pain worsens with movement. 61-year-old white male who presented to the emergency department with severe pain in the lower back. The patient reports that he had chronic pain for many years and was taking a lot of narcotic pain medications and he went for a myelogram evaluation on 03/22 17. He stated that after the myelogram he started having severe back pain and he also had decreased appetite and occasional headache and then started developing fever and chills. The patient has a TENS unit for pain control which has been in for approximately 5 years. He states that it has functioned well except for recently, that he thinks the battery is dying. The patient reported that he had no fevers prior to the myelogram which was performed on 03/22/2017. PAST MEDICAL HISTORY 1. Chronic back pain. 2. Hypertension. 3. Lithotripsy. 4. Spinal stimulator. ALLERGIES NO KNOWN DRUG ALLERGIES. MEDICATIONS 1. Ceftriaxone. 2. Vancomycin. OBJECTIVE: Vital Signs Date Time Temp Pulse Resp B/P (MAP) Pulse Ox O2 Delivery O2 Flow Rate FiO2 03/30/17 16:00 99.1 60 18 153/83 (106) 94 03/30/17 15:46 16 03/30/17 15:46 16 03/30/17 12:00 99.4 67 18 141/77 (98) 95 03/30/17 11:16 17 03/30/17 08:00 99.9 87 18 153/72 (99) 94 03/30/17 04:23 77 03/30/17 03:54 100.2 81 18 154/67 (96) 92 03/30/17 03:07 17 03/30/17 02:36 18 03/30/17 00:56 Room Air 03/30/17 00:13 61 03/29/17 23:32 97.0 72 18 146/69 (94) 94 03/29/17 20:18 69 03/29/17 19:18 100.5 87 18 158/77 (104) 92 03/29/17 18:11 61 Laboratory Tests Test 03/29/17 05:51 Creatinine 0.87 MG/DL Estimat Glomerular Filtration Rate 89 ML/MIN Microbiology Date/Time Source Procedure Growth Status 03/28/17 15:24 Cerebral Spinal Fluid Lumbar Puncture Fungal Smear - Final NO FUNGAL ELEMENTS SEEN. Resulted 03/28/17 15:24 Cerebral Spinal Fluid Lumbar Puncture Fungal Culture Pending Resulted 03/28/17 15:24 Cerebral Spinal Fluid Lumbar Puncture Gram Stain - Final Resulted 03/28/17 15:24 Cerebral Spinal Fluid Lumbar Puncture CSF Culture - Preliminary NO GROWTH IN 48 HOURS. Resulted IMAGING: Lumbar Spine CT 03/29/17 0000 Signed Impressions: Service Date/Time: Wednesday, March 29, 2017 17:26 - CONCLUSION: 1. Tiny bubbles of gas within the central canal at L4 and L5, appearing to be intrathecal and presumably iatrogenic. No abscess is demonstrated. 2. Lower lumbar degenerative changes as above. 3. Spinal stimulator leads are partly included on the study. No evidence an associated acute complication. 4. No fracture or subluxation. Daron Christianson MD Lumbar Puncture Fluoroscopy 03/28/17 0000 Signed Impressions: Service Date/Time: Tuesday, March 28, 2017 15:14 - CONCLUSION: Uncomplicated fluoroscopically guided lumbar puncture. Calixto Caldwell MD Chest X-Ray 03/26/[id number] Signed Impressions: Service Date/Time: Sunday, March 26, 2017 17:06 - CONCLUSION: Cardiomegaly. No acute cardiopulmonary disease. Saulo Abdi MD Head CT 03/26/17 0000 Signed Impressions: Service Date/Time: Sunday, March 26, 2017 20:18 - CONCLUSION: No acute disease. No evidence of acute infarct, hemorrhage, mass or edema. Arnoldo Caba MD Abdomen/Pelvis CT 03/26/17 0000 Signed Impressions: Service Date/Time: Sunday, March 26, 2017 20:23 - CONCLUSION: 1. Multiple bilateral nonobstructing renal calculi. No evidence of hydronephrosis. 2. Hepatic steatosis. 3. Dorsal column stimulator. 4. No acute process. Arnoldo Caba MD PHYSICAL EXAMINATION GENERAL: Moderate distress because of pain. HEENT: Head atraumatic. Extraocular movements grossly intact, pupils reactive to light. No icterus. Oropharynx moist mucosa without lesions. NECK: Supple without swelling or adenopathy. LUNGS: Clear breath sounds. HEART: Regular S1-S2. No murmurs, rub or gallops. ABDOMEN: Bowel sounds present but decreased, soft, nontender. BACK: No tenderness on palpation of the lower back. No erythema visible. No erythema over the TENS. EXTREMITIES: No clubbing, cyanosis or edema. SKIN: No visible rash. NEUROLOGIC: No gross focal findings. Weakness in the lower extremities. PSYCHIATRIC: Calm and cooperative. IMPRESSION 1. Fever of unknown origin. Unclear etiology. Patient with negative chest x-ray and blood cultures are also unremarkable. He is status post myelogram and fever could be related to that procedure. He had intractable back pain and it could be related to back issues from before, but he states that the pain is of a different characteristic and it is not clear whether it may be related to infection in the lower back. The white blood cell count is normal, however. 2. No evidence of meningitis on CSF. 3. Probable infection related to the TENS unit. Cannot do MRI because he has the TENS. RECOMMENDATIONS 1. Continue vancomycin. 2. Continue Ceftriaxone. 3. In my opinion the TENS unit needs to be removed. Surgery consulted. Patient also being followed by orthopedics. 4. Monitor temperature. 5. Monitor clinical status. Yanick Sykes MD Mar 31, 2017 12:49
[2017-03-31 12:50] LABS: AUTOMATED NEUTROPHIL # 5.6 TH/MM3 (1.8-7.7); BASOPHIL % 0.5 % (0.0-2.0); EOSINOPHIL # 0.2 TH/MM3 (0-0.4); EOSINOPHIL % 2.6 % (0.0-4.0); HEMATOCRIT 31.5 % (39.0-51.0); HEMOGLOBIN 10.9 GM/DL (13.0-17.0); LYMPH % 16.5 % (9.0-44.0); LYMPHOCYTE # 1.3 TH/MM3 (1.0-4.8); MEAN CELL VOLUME 92.2 FL (80.0-100.0); MEAN CORPUSCULAR HEMOGLOBIN 31.9 PG (27.0-34.0); MEAN CORPUSCULAR HGB CONC 34.6 % (32.0-36.0); MEAN PLATELET VOLUME 7.6 FL (7.0-11.0); MONO % 8.9 % (0.0-8.0); MONOCYTE # 0.7 TH/MM3 (0-0.9); NEUT % 71.5 % (16.0-70.0); PLATELET COUNT 209 TH/MM3 (150-450); RED BLOOD COUNT 3.41 MIL/MM3 (4.50-5.90); RED CELL DISTRIBUTION WIDTH 12.9 % (11.6-17.2); WHITE BLOOD COUNT 7.9 TH/MM3 (4.0-11.0)
[2017-03-31 13:00] LABS: ALBUMIN 1.9 GM/DL (3.4-5.0); ALT (GPT) 28 U/L (12-78); BICARBONATE 26.7 MEQ/L (21.0-32.0); BLOOD UREA NITROGEN 13 MG/DL (7-18); C-REACTIVE PROTEIN 5.74 MG/DL (0.00-0.30); CALCIUM 7.6 MG/DL (8.5-10.1); CHLORIDE 105 MEQ/L (98-107); CREATININE 0.47 MG/DL (0.60-1.30); GLUCOSE,RANDOM 88 MG/DL (74-106); SODIUM (NA) 139 MEQ/L (136-145)
[2017-03-31 13:03] LABS: ALKALINE PHOSPHATASE 43 U/L (45-117); AST (GOT) 23 U/L (15-37); CREATININE 0.49 MG/DL (0.60-1.30); GLOMERULAR FILTRATION RATE 172 ML/MIN (>89); TOTAL BILIRUBIN ADULT 0.3 MG/DL (0.2-1.0); TOTAL PROTEIN 5.2 GM/DL (6.4-8.2)
--- NOTE | 2017-03-31 13:38 | HHI.PR ---
Subjective Remarks awake and alert feel slightly better with regard to pain but exacerbated with movement refused to wokr with PT this am- - per patient staff did not come when he wanted to work with them poor po appetite- - bringing in shakes Objective Vitals Vital Signs Date Time Temp Pulse Resp B/P (MAP) Pulse Ox O2 Delivery O2 Flow Rate FiO2 03/31/17 11:29 98.6 79 19 161/80 (107) 94 03/31/17 07:41 96.9 54 19 129/74 (92) 97 03/31/17 07:41 Room Air 03/31/17 04:00 99.9 77 18 153/70 (97) 93 03/31/17 02:10 Room Air 03/31/17 00:36 99.4 73 18 102/61 (75) 93 03/30/17 21:15 70 03/30/17 20:20 101.3 87 18 165/69 (101) 95 03/30/17 16:00 99.1 60 18 153/83 (106) 94 03/30/17 15:46 16 03/30/17 15:46 16 I/O 03/30/17 03/30/17 03/30/17 03/31/17 03/31/17 03/31/17 07:00 15:00 23:00 07:00 15:00 23:00 Intake Total 1750 ml 460 ml 720 ml 480 ml Output Total 650 ml 725 ml 700 ml 1000 ml Balance 1100 ml -265 ml 20 ml -520 ml Intake Oral 720 ml 360 ml 720 ml 480 ml IV Total 1030 ml 100 ml Output Urine Total 650 ml 725 ml 700 ml 1000 ml # Bowel Movements 0 1 1 0 Result Diagram: 03/31/17 1220 03/31/17 1220 Imaging Last Impressions Lumbar Spine CT 03/29/17 0000 Signed Impressions: Service Date/Time: Wednesday, March 29, 2017 17:26 - CONCLUSION: 1. Tiny bubbles of gas within the central canal at L4 and L5, appearing to be intrathecal and presumably iatrogenic. No abscess is demonstrated. 2. Lower lumbar degenerative changes as above. 3. Spinal stimulator leads are partly included on the study. No evidence an associated acute complication. 4. No fracture or subluxation. Daron Christianson MD Lumbar Puncture Fluoroscopy 03/28/17 0000 Signed Impressions: Service Date/Time: Tuesday, March 28, 2017 15:14 - CONCLUSION: Uncomplicated fluoroscopically guided lumbar puncture. Calixto Caldwell MD Chest X-Ray 03/26/17 1657 Signed Impressions: Service Date/Time: Sunday, March 26, 2017 17:06 - CONCLUSION: Cardiomegaly. No acute cardiopulmonary disease. Saulo Abdi MD Head CT 03/26/17 0000 Signed Impressions: Service Date/Time: Sunday, March 26, 2017 20:18 - CONCLUSION: No acute disease. No evidence of acute infarct, hemorrhage, mass or edema. Arnoldo Caba MD Abdomen/Pelvis CT 03/26/17 0000 Signed Impressions: Service Date/Time: Sunday, March 26, 2017 20:23 - CONCLUSION: 1. Multiple bilateral nonobstructing renal calculi. No evidence of hydronephrosis. 2. Hepatic steatosis. 3. Dorsal column stimulator. 4. No acute process. Arnoldo Caba MD Objective Remarks awake and alert, oriented x 3, interactive no nuchal rigidity anicteric lungs clear regular rhythm abdomen soft, nontender villar in place extremities no edema, no knee effusion, flexed knees more today moves toes and feet freely grossly no sensory deficits Procedures 03/28- LP Urinary Catheter: Yes Assessment to: Continue Villar insert reason: Prolonged Immobilization Date of Insertion: Mar 28, 2017 A/P Problem List: (1) SIRS (systemic inflammatory response syndrome) ICD Code: R65.10 - Systemic inflammatory response syndrome (SIRS) of non- infectious origin without acute organ dysfunction (2) Intractable back pain ICD Code: M54.9 - Dorsalgia, unspecified (3) Hypotension ICD Code: I95.9 - Hypotension, unspecified (4) Renal insufficiency ICD Code: N28.9 - Disorder of kidney and ureter, unspecified Assessment and Plan 61 years old male FUO/SIRS: Source unclear with history of recent s/p Myelogram for severe back pain r/o disciitis/arachnoiditis S/P LP 03/28 Blood Cultures negative so far , will follow. Spinal fluid studies cultures pending. add AFB studies Continue w/ IV Abx- Vancomycin and Rocephin CXR w/ no acute findings, U/a negative. ID ff surgery consuted- for removal of spinal stimulator Intractable Back Pain: h/o chronic back pain, follows w/ Dr. Lobo, s/p Spinal Stimulator, now w/ severe exacerbation. Analgesics/antiemetics, Valium prn for muscle spasm. no fecal or urinary incontinence CT - no abscess as OP was on Oxycontin 20 mg po bid- restart- increase to 40 mg bid and Hydrocodone 10 q 4 prn, IV Dilaudid prn for severe pain fentanyl patch x1- per patient helped- will order scheduled maybe if Spinal stimulator is removed- we can get an MRI of the back Acute Renal Insufficiency: Creatinine 1.44,- creatinine improved. heplock and monitor, on villar- consider change to condom Hypotension: Transient. Improved, continue IVF and antibiotics DVT Prophylaxis: SCD/Teds. Lovenox for DVT prophylaxis ff- - maybe a Espinal candidate Liliana Hope MD Mar 31, 2017 13:38
[2017-03-31] MEDS ORDERED: ENOXAPARIN SODIUM 40 MG/0.4 ML SYRINGE SQ SCH (14:00)
--- NOTE | 2017-03-31 17:28 | PD.CAR.PN ---
CVT Progress Note Subjective/Hospital Course: Patient is a 61-year-old male with multiple medical problems He has a TENS unit with the battery chamber just left of the midline of the lumbar area. [place] made by infectious disease specialist to remove the same Unfortunately removal or placement of TENS units is not in scope of my practice for this is a quite specialized area of pain management. This should be performed by pain management specialists that normally place these Discussed with Dr. Mony Segal Objective: Vital Signs Date Time Temp Pulse Resp B/P (MAP) Pulse Ox O2 Delivery O2 Flow Rate FiO2 03/31/17 17:07 96.8 62 17 107/55 (72) 97 03/31/17 11:29 98.6 79 19 161/80 (107) 94 03/31/17 07:41 96.9 54 19 129/74 (92) 97 03/31/17 07:41 Room Air 03/31/17 04:00 99.9 77 18 153/70 (97) 93 03/31/17 02:10 Room Air 03/31/17 00:36 99.4 73 18 102/61 (75) 93 03/30/17 21:15 70 03/30/17 20:20 101.3 87 18 165/69 (101) 95 Labs: Laboratory Tests Test 03/31/17 12:20 White Blood Count 7.9 TH/MM3 (4.0-11.0) Red Blood Count 3.41 MIL/MM3 (4.50-5.90) Hemoglobin 10.9 GM/DL (13.0-17.0) Hematocrit 31.5 % (39.0-51.0) Mean Corpuscular Volume 92.2 FL (80.0-100.0) Mean Corpuscular Hemoglobin 31.9 PG (27.0-34.0) Mean Corpuscular Hemoglobin Concent 34.6 % (32.0-36.0) Red Cell Distribution Width 12.9 % (11.6-17.2) Platelet Count 209 TH/MM3 (150-450) Mean Platelet Volume 7.6 FL (7.0-11.0) Neutrophils (%) (Auto) 71.5 % (16.0-70.0) Lymphocytes (%) (Auto) 16.5 % (9.0-44.0) Monocytes (%) (Auto) 8.9 % (0.0-8.0) Eosinophils (%) (Auto) 2.6 % (0.0-4.0) Basophils (%) (Auto) 0.5 % (0.0-2.0) Neutrophils # (Auto) 5.6 TH/MM3 (1.8-7.7) Lymphocytes # (Auto) 1.3 TH/MM3 (1.0-4.8) Monocytes # (Auto) 0.7 TH/MM3 (0-0.9) Eosinophils # (Auto) 0.2 TH/MM3 (0-0.4) Basophils # (Auto) 0.0 TH/MM3 (0-0.2) CBC Comment DIFF FINAL Differential Comment Blood Urea Nitrogen 13 MG/DL (7-18) Creatinine 0.49 MG/DL (0.60-1.30) Random Glucose 88 MG/DL (74-106) Total Protein 5.2 GM/DL (6.4-8.2) Albumin 1.9 GM/DL (3.4-5.0) Calcium Level 7.6 MG/DL (8.5-10.1) Alkaline Phosphatase 43 U/L (45-117) Aspartate Amino Transf (AST/SGOT) 23 U/L (15-37) Alanine Aminotransferase (ALT/SGPT) 28 U/L (12-78) Total Bilirubin 0.3 MG/DL (0.2-1.0) Sodium Level 139 MEQ/L (136-145) Potassium Level 3.5 MEQ/L (3.5-5.1) Chloride Level 105 MEQ/L (98-107) Carbon Dioxide Level 26.7 MEQ/L (21.0-32.0) Anion Gap 7 MEQ/L (5-15) Estimat Glomerular Filtration Rate 172 ML/MIN (>89) C-Reactive Protein 5.74 MG/DL (0.00-0.30) Vancomycin Level Trough 6.7 MCG/ML (5.0-10.0) Result Diagram: 03/31/17 1220 03/31/17 1220 Robyn Mckee MD Mar 31, 2017 17:28
[2017-03-31 17:52] LABS: HAEMOPHILUS FLU AG TYPE B Not Detected (Not Detected)
[2017-03-31] MEDS: traZODone HCL 100 MG TAB PO SCH (20:50)
[2017-04-01] VITALS (9 sets, daily range): BP systolic 114–166; BP diastolic 57–93; PULSE 50–84; RESP 16–17; TEMP 97.1–99.8; O2SAT 93–97
[2017-04-01] MEDS: DIAZEPAM 5 MG TAB PO PRN ×3 (02:05→20:25)
[2017-04-01] MEDS: ACETAMINOPHEN/HYDROcodone 325 MG/5 MG TAB PO PRN ×2 (04:08→08:30)
[2017-04-01] MEDS: HYDROmorphone HCL PF 2 MG/ML VIAL IV PUSH PRN (05:50)
[2017-04-01] MEDS: cefTRIAXone INJ 2,000 MG in SODIUM CHLORIDE 0.9% INJ 100 ML IV SCH ×2 (05:52→17:12)
[2017-04-01] MEDS: DOCUSATE SODIUM 50 MG/SENNA 8.6 MG TAB PO SCH ×2 (08:30→20:26)
[2017-04-01] MEDS: oxyCODONE HCL 20 MG CONTROLLED RELEASE TAB PO SCH ×2 (08:31→20:25)
[2017-04-01] MEDS: SODIUM CHLORIDE 0.9% FLUSH 10 ML FLUSH IV FLUSH SCH ×2 (08:40→20:26)
[2017-04-01] MEDS ORDERED: ACETAMINOPHEN/HYDROcodone 325 MG/5 MG TAB PO PRN ×2 (09:00→13:00)
--- NOTE | 2017-04-01 09:01 | HHI.PR ---
Subjective Remarks awake and alert appears comfortable but pain when starts moving even with minimal movement grossly no sensory deficits I noted black stools on the sheets Objective Vitals Vital Signs Date Time Temp Pulse Resp B/P (MAP) Pulse Ox O2 Delivery O2 Flow Rate FiO2 04/01/17 04:19 76 04/01/17 04:00 98.8 76 16 154/73 (100) 97 04/01/17 00:00 66 04/01/17 00:00 98.5 63 16 114/57 (76) 93 03/31/17 20:45 87 03/31/17 20:00 98.0 82 16 155/69 (97) 96 03/31/17 17:07 96.8 62 17 107/55 (72) 97 03/31/17 16:10 65 03/31/17 11:29 98.6 79 19 161/80 (107) 94 I/O 03/31/17 03/31/17 03/31/17 04/01/17 04/01/17 04/01/17 07:00 15:00 23:00 07:00 15:00 23:00 Intake Total 960 ml 1011 ml Output Total 2800 ml Balance -1840 ml 1011 ml Intake Oral 960 ml IV Total 1011 ml Output Urine Total 2800 ml # Bowel Movements 2 Result Diagram: 03/31/17 1220 03/31/17 1220 Imaging Last Impressions Lumbar Spine CT 03/29/17 0000 Signed Impressions: Service Date/Time: Wednesday, March 29, 2017 17:26 - CONCLUSION: 1. Tiny bubbles of gas within the central canal at L4 and L5, appearing to be intrathecal and presumably iatrogenic. No abscess is demonstrated. 2. Lower lumbar degenerative changes as above. 3. Spinal stimulator leads are partly included on the study. No evidence an associated acute complication. 4. No fracture or subluxation. Daron Christianson MD Lumbar Puncture Fluoroscopy 03/28/17 0000 Signed Impressions: Service Date/Time: Tuesday, March 28, 2017 15:14 - CONCLUSION: Uncomplicated fluoroscopically guided lumbar puncture. Calixto Caldwell MD Chest X-Ray 03/26/17 1657 Signed Impressions: Service Date/Time: Sunday, March 26, 2017 17:06 - CONCLUSION: Cardiomegaly. No acute cardiopulmonary disease. Saulo Abdi MD Head CT 03/26/17 0000 Signed Impressions: Service Date/Time: Sunday, March 26, 2017 20:18 - CONCLUSION: No acute disease. No evidence of acute infarct, hemorrhage, mass or edema. Arnoldo Caba MD Abdomen/Pelvis CT 03/26/17 0000 Signed Impressions: Service Date/Time: Sunday, March 26, 2017 20:23 - CONCLUSION: 1. Multiple bilateral nonobstructing renal calculi. No evidence of hydronephrosis. 2. Hepatic steatosis. 3. Dorsal column stimulator. 4. No acute process. Arnoldo Caba MD Objective Remarks awake and alert, oriented x 3, interactive no nuchal rigidity anicteric lungs clear regular rhythm abdomen soft, nontender villar in place extremities no edema, no knee effusion, flexed knees and moved thighs- limited by pain + black tarry stools moves toes and feet freely grossly no sensory deficits Procedures 03/28- LP Urinary Catheter: Yes Assessment to: Continue Villar insert reason: Prolonged Immobilization Date of Insertion: Mar 28, 2017 A/P Problem List: (1) SIRS (systemic inflammatory response syndrome) ICD Code: R65.10 - Systemic inflammatory response syndrome (SIRS) of non- infectious origin without acute organ dysfunction (2) Intractable back pain ICD Code: M54.9 - Dorsalgia, unspecified (3) Hypotension ICD Code: I95.9 - Hypotension, unspecified (4) Renal insufficiency ICD Code: N28.9 - Disorder of kidney and ureter, unspecified Assessment and Plan 61 years old male FUO/SIRS: Source unclear with history of recent s/p Myelogram for severe back pain r/o disciitis/arachnoiditis S/P LP 03/28 Blood Cultures negative so far , will follow. Spinal fluid studies cultures pending. add AFB studies Continue w/ IV Abx- Vancomycin and Rocephin CXR w/ no acute findings, U/a negative. ID ff surgery consuted- for removal of spinal stimulator Intractable Back Pain: h/o chronic back pain, follows w/ Dr. Lobo, s/p Spinal Stimulator, now w/ severe exacerbation. Analgesics/antiemetics, Valium prn for muscle spasm. no fecal or urinary incontinence CT - no abscess as OP was on Oxycontin 20 mg po bid- restart- increase to 40 mg bid and Hydrocodone 10 q 4 prn, IV Dilaudid prn for severe pain fentanyl patch scheduled unable to do MRI with -with Spinal stimulator in place Acute Renal Insufficiency: Creatinine 1.44,- creatinine improved. heplock and monitor, on villar- consider change to condom Melena - on exam- black stools on sheets stat CBC get GI consult type and x match 2 units standyby start PPI IV Hold Lovenox Hypotension: Transient. Improved, continue IVF and antibiotics DVT Prophylaxis: SCD/Teds. Lovenox for DVT prophylaxis - hold for melena CM ff- - maybe a Teddy candidate 04/01-- called office - Dr. Cee [phone]- per patient patient 's pain MD- left message - my cell for call back [facility] [place], [place] Liliana Hope MD Apr 01, 2017 09:01
[2017-04-01] MEDS ORDERED: PANTOPRAZOLE SODIUM 40 MG VIAL IV PUSH SCH (09:30)
[2017-04-01] MEDS: VANCOMYCIN INJ 1,500 MG in SODIUM CHLORID 0.9% 500 ML INJ 500 ML IV SCH ×2 (10:44→23:19)
--- NOTE | 2017-04-01 11:32 | PD.CONS ---
HPI History of Present Illness This is a 61 year old morbidly obese male In the hospital on 03/26/17 with worsening of his low back pain. Today patient is still complaining of severe low back pain and cannot tolerate any type of movement in the bed. He's also complaining of multiple diarrhea stools which are dark and tarry, no constipation. Patient has been on Eliquis in the past but none has been taking over the past few days. Patient does complain of increased gas/abdominal, nausea no vomiting but states it seems to be due to his back pain. No known EGD or colonoscopy; no known family history of colon cancer. Patient is awake and answer simple questions. Patient has Lee catheter draining clear yellow urine. According to the record patient did have some hypotension initially in the emergency room on admission and a fever of 102.8 CT of the abdomen and pelvis showed multiple nonobstructing renal stones. Patient denies any dysphasia and is able to lay semiflat in the bed. (Bren Santiago) PFSH Past Medical History PMH: HTN and Chronic Back Pain s/p Spinal Stimulator Past Surgical History PAST SURGICAL HISTORY: Lithotripsy Spinal stimulator (Bren Santiago) Coded Allergies: No Known Allergies (Unverified , 03/26/17) Medications Administered Medications Medications (Trade) Dose Ordered Sig/Boyd Route PRN Reason Start Time Stop Time Status Last Admin Dose Admin Sodium Chloride (NS Flush) 2 ml BID IV FLUSH 03/27/17 09:00 03/30/17 09:02 Ondansetron HCl (Zofran Inj) 4 mg Q6H PRN IVP NAUSEA OR VOMITING 03/26/17 22:45 03/27/17 22:55 Acetaminophen (Tylenol) 650 mg Q6H PRN PO FEVER/PAIN SCALE 1 TO 2 03/26/17 22:45 03/30/17 02:09 Senna/Docusate Sodium (Fanny-Colace) 1 tab BID PO 03/27/17 09:00 04/01/17 08:30 Sennosides (Senokot) 17.2 mg Q12H PRN PO Moderate constipation 03/26/17 22:45 03/27/17 07:43 Lactulose (Lactulose Liq) 30 ml DAILY PRN PO SEVERE CONSITIPATION 03/26/17 22:45 03/28/17 08:55 Trazodone HCl (Desyrel) 250 mg HS PO 03/27/17 01:00 03/28/17 01:17 Diazepam (Valium) 5 mg Q8H PRN PO MUSCLE SPASM 03/27/17 01:00 04/01/17 10:44 Ceftriaxone Sodium 2000 mg/ Sodium Chloride 100 ml @ 200 mls/hr Q12H IV 03/27/17 18:00 04/01/17 05:52 Tizanidine HCl (Zanaflex) 8 mg Q8HR PO 03/29/17 14:00 04/01/17 05:50 Miscellaneous Information 1 Q3D T-DERMAL 03/30/17 13:15 04/02/17 13:16 03/30/17 13:15 Vancomycin HCl 1500 mg/Sodium Chloride 515 ml @ 258 mls/hr Q12H IV 03/31/17 23:00 04/01/17 10:44 Oxycodone HCl (OxyCONTIN CR) 40 mg Q12HR PO 03/31/17 21:00 04/01/17 08:31 Pantoprazole Sodium (Protonix Inj) 40 mg Q24H IV PUSH 04/01/17 09:30 04/01/17 10:43 Family History PAST FAMILY HISTORY: Reviewed. No h/o DM or CAD Social History PAST SOCIAL HISTORY: Occasional alcohol. Negative for tobacco or drugs. (Bren Santiago) Review of Systems Constitutional: COMPLAINS OF: Fever (recent) Gastrointestinal: COMPLAINS OF: Black stools, Diarrhea (Bren Santiago) GI Exam Vitals I&O Vital Signs Date Time Temp Pulse Resp B/P (MAP) Pulse Ox O2 Delivery O2 Flow Rate FiO2 04/01/17 08:00 97.1 50 16 126/66 (86) 94 04/01/17 04:19 76 04/01/17 04:00 98.8 76 16 154/73 (100) 97 04/01/17 00:00 66 04/01/17 00:00 98.5 63 16 114/57 (76) 93 03/31/17 20:45 87 03/31/17 20:00 98.0 82 16 155/69 (97) 96 03/31/17 17:07 96.8 62 17 107/55 (72) 97 03/31/17 16:10 65 03/31/17 11:29 98.6 79 19 161/80 (107) 94 I/O 03/31/17 03/31/17 03/31/17 04/01/17 04/01/17 04/01/17 07:00 15:00 23:00 07:00 15:00 23:00 Intake Total 960 ml 1011 ml Output Total 2800 ml Balance -1840 ml 1011 ml Intake Oral 960 ml IV Total 1011 ml Output Urine Total 2800 ml # Bowel Movements 2 Imaging Last Impressions Lumbar Spine CT 03/29/17 0000 Signed Impressions: Service Date/Time: Wednesday, March 29, 2017 17:26 - CONCLUSION: 1. Tiny bubbles of gas within the central canal at L4 and L5, appearing to be intrathecal and presumably iatrogenic. No abscess is demonstrated. 2. Lower lumbar degenerative changes as above. 3. Spinal stimulator leads are partly included on the study. No evidence an associated acute complication. 4. No fracture or subluxation. Daron Christianson MD Lumbar Puncture Fluoroscopy 03/28/17 0000 Signed Impressions: Service Date/Time: Tuesday, March 28, 2017 15:14 - CONCLUSION: Uncomplicated fluoroscopically guided lumbar puncture. Calixto Caldwell MD Chest X-Ray 03/26/17 1657 Signed Impressions: Service Date/Time: Sunday, March 26, 2017 17:06 - CONCLUSION: Cardiomegaly. No acute cardiopulmonary disease. Saulo Abdi MD Head CT 03/26/17 0000 Signed Impressions: Service Date/Time: Sunday, March 26, 2017 20:18 - CONCLUSION: No acute disease. No evidence of acute infarct, hemorrhage, mass or edema. Arnoldo Caba MD Abdomen/Pelvis CT 03/26/17 0000 Signed Impressions: Service Date/Time: Sunday, March 26, 2017 20:23 - CONCLUSION: 1. Multiple bilateral nonobstructing renal calculi. No evidence of hydronephrosis. 2. Hepatic steatosis. 3. Dorsal column stimulator. 4. No acute process. Arnoldo Caba MD Laboratory Test 03/31/17 12:20 04/01/17 07:19 White Blood Count 7.9 TH/MM3 Red Blood Count 3.41 MIL/MM3 Hemoglobin 10.9 GM/DL Hematocrit 31.5 % Mean Corpuscular Volume 92.2 FL Mean Corpuscular Hemoglobin 31.9 PG Mean Corpuscular Hemoglobin Concent 34.6 % Red Cell Distribution Width 12.9 % Platelet Count 209 TH/MM3 Mean Platelet Volume 7.6 FL Neutrophils (%) (Auto) 71.5 % Lymphocytes (%) (Auto) 16.5 % Monocytes (%) (Auto) 8.9 % Eosinophils (%) (Auto) 2.6 % Basophils (%) (Auto) 0.5 % Neutrophils # (Auto) 5.6 TH/MM3 Lymphocytes # (Auto) 1.3 TH/MM3 Monocytes # (Auto) 0.7 TH/MM3 Eosinophils # (Auto) 0.2 TH/MM3 Basophils # (Auto) 0.0 TH/MM3 CBC Comment DIFF FINAL Differential Comment Blood Urea Nitrogen 13 MG/DL Creatinine 0.49 MG/DL Random Glucose 88 MG/DL Total Protein 5.2 GM/DL Albumin 1.9 GM/DL Calcium Level 7.6 MG/DL Alkaline Phosphatase 43 U/L Aspartate Amino Transf (AST/SGOT) 23 U/L Alanine Aminotransferase (ALT/SGPT) 28 U/L Total Bilirubin 0.3 MG/DL Sodium Level 139 MEQ/L Potassium Level 3.5 MEQ/L Chloride Level 105 MEQ/L Carbon Dioxide Level 26.7 MEQ/L Anion Gap 7 MEQ/L Estimat Glomerular Filtration Rate 172 ML/MIN C-Reactive Protein 5.74 MG/DL Vancomycin Level Trough 6.7 MCG/ML Erythrocyte Sedimentation Rate 43 mm/hr Date/Time Source Procedure Growth Status 04/01/17 07:25 Blood Peripheral Aerobic Blood Culture Pending Received 04/01/17 07:25 Blood Peripheral Anaerobic Blood Culture Pending Received 03/28/17 15:24 Cerebral Spinal Fluid Lumbar Puncture Fungal Smear - Final NO FUNGAL ELEMENTS SEEN. Resulted 03/28/17 15:24 Cerebral Spinal Fluid Lumbar Puncture Fungal Culture Pending Resulted 04/01/17 08:58 Stool Stool Stool Occult Blood (BUFFY) Pending Received 03/26/17 17:33 Nasal Washing Influenza Types A,B Antigen (BUFFY) - Final NEGATIVE FOR FLU A AND B ANTIGEN.... Complete 03/27/17 17:35 Urine Catheterized Urine Urine Culture - Final NO GROWTH IN 48 HOURS. Complete 03/28/17 15:24 Wound Other Acid Fast Stain Pending Received 03/28/17 15:24 Wound Other Mycobacterial Culture Pending Received Physical Examination HEENT: Pupils round and reactive to light; normocephalic; atraumatic; no jaundice. Pale facial color NECK: Neck is short ,obese ,supple, no JVD, CHEST: Chest is without rhonchi CARDIAC: Regular rate and rhythm ABDOMEN: Large, round, taut, nontender; bowel sounds often EXTREMITIES: No LE edema. SKIN: Pale no rash; no jaundice. UMBRELLA FINISHER: No focal deficits; alert and oriented times three., Increased anxiety (Bren Santiago) Assessment and Plan Assessment: (1) Black tarry stools ICD Codes: K92.1 - Melena (2) GI bleed ICD Codes: K92.2 - Gastrointestinal hemorrhage, unspecified Plan GI bleed possibly upper possibly secondary to Eliquis. Med has been on hold for the last few days, patient is having multiple diarrheal stools dark tarry consistency, complaints of lots of gas, Uncontrolled lower back pain which is being managed per the attending Patient has been nothing by mouth all day Planned for EGD later this afternoon, consent on chart Continue to hold any blood thinners Maintain PPI IV Monitor labs Call GI for any acute bleeding Plan of care and any further procedures will be based on symptoms This patient was seen by myself and Dr. Goff, this note was done on her behalf (Bren Santiago) Physician Comments seen, examined agree with above (Roxanna Goff MD) Bren Santiago Apr 01, 2017 11:32 Roxanna Goff MD Apr 01, 2017 22:03
[2017-04-01] MEDS: HYDROmorphone HCL PF 2 MG/ML VIAL IV PRN ×2 (11:51→17:12)
[2017-04-01] MEDS: ACETAMINOPHEN/HYDROcodone 325 MG/10 MG TAB PO PRN ×3 (11:52→23:31)
[2017-04-01 11:55] LABS: AUTOMATED NEUTROPHIL # 6.5 TH/MM3 (1.8-7.7); BASOPHIL % 0.5 % (0.0-2.0); EOSINOPHIL # 0.2 TH/MM3 (0-0.4); EOSINOPHIL % 2.2 % (0.0-4.0); HEMATOCRIT 30.1 % (39.0-51.0); HEMOGLOBIN 10.4 GM/DL (13.0-17.0); LYMPH % 15.3 % (9.0-44.0); LYMPHOCYTE # 1.3 TH/MM3 (1.0-4.8); MEAN CELL VOLUME 91.8 FL (80.0-100.0); MEAN CORPUSCULAR HEMOGLOBIN 31.7 PG (27.0-34.0); MEAN CORPUSCULAR HGB CONC 34.5 % (32.0-36.0); MEAN PLATELET VOLUME 7.4 FL (7.0-11.0); MONOCYTE # 0.6 TH/MM3 (0-0.9); PLATELET COUNT 254 TH/MM3 (150-450); RED BLOOD COUNT 3.27 MIL/MM3 (4.50-5.90); RED CELL DISTRIBUTION WIDTH 12.9 % (11.6-17.2); WHITE BLOOD COUNT 8.6 TH/MM3 (4.0-11.0)
[2017-04-01 12:00] LABS: INTERNATIONAL NORMALIZED RATIO 1.2 RATIO; PROTHROMBIN TIME - PATIENT 11.7 SEC (9.8-11.6)
[2017-04-01] MEDS ORDERED: ONDANSETRON HCL 4 MG/2 ML VIAL IV ONE (12:00)
[2017-04-01] MEDS ORDERED: PROPOFOL 200 MG/20 ML AMP IV ONE (12:00)
[2017-04-01] MEDS ORDERED: DEXAMETHASONE SOD PHOS 4 MG/ML VIAL IV ONE (12:00)
[2017-04-01] MEDS ORDERED: ceFAZolin INJ 1,000 MG VIAL IV ONE (12:00)
[2017-04-01 12:09] LABS: BICARBONATE 28.7 MEQ/L (21.0-32.0); CALCIUM 7.7 MG/DL (8.5-10.1); CREATININE 0.57 MG/DL (0.60-1.30)
[2017-04-01] MEDS ORDERED: POVIDONE IODINE 5% (ANTISEPSIS KIT) 4 APPLICATIONS EACH NARE PRN (14:30)
[2017-04-01] MEDS ORDERED: METOPROLOL TARTRATE 25 MG TAB PO PRN (14:30)
[2017-04-01] MEDS ORDERED: LACTATED RINGER'S 1000 ML IV PRN (14:30)
[2017-04-01] MEDS ORDERED: SODIUM CHLORID 0.9% 500 ML IV PRN (14:30)
[2017-04-01] MEDS ORDERED: CHLORHEXIDINE GLUCONATE 2 % 1 PACK (2 CLOTHS) TOPICAL PRN (14:30)
[2017-04-01] MEDS ORDERED: EPINEPHrine HCL (1:1000) 1 MG/ML VIAL OTHER ONE (16:13)
--- NOTE | 2017-04-01 16:19 | GIPROC ---
[facility] [address] [facility]. [facility], [address] EGD PROCEDURE REPORT EXAM DATE: 04/01/2017 PATIENT NAME: Garland Smith MR #: [id number] BIRTHDATE: 1955 ATTENDING: Roxanna Goff MD ORDER #: [id number] COLUMN PRECASTER: Candi Quarles RN STATUS: inpatient INDICATIONS: The patient is a 61 yr old male here for an EGD due to anemia, melena PROCEDURE PERFORMED: EGD w/ biopsy MEDICATIONS: Per Anesthesia and None. TOPICAL ANESTHETIC: none CONSENT: The patient understands the risks and benefits of the procedure and understands that these risks include, but are not limited to: sedation, allergic reaction, infection, perforation and/or bleeding. Alternative means of evaluation and treatment include, among others: physical exam, x-rays, and/or surgical intervention. The patient elects to proceed with this endoscopic procedure. medical equipment was checked for proper function. Hand hygiene and appropriate measures for infection prevention was taken. After the risks, benefits and alternatives of the procedure were thoroughly explained, Informed consent was verified, confirmed and timeout was successfully executed by the treatment team. The patient was anesthetized with topical anesthesia and the [id number] (Pedi C) endoscope was introduced through the mouth and advanced to the second portion of the duodenum. Retroflexed views revealed a hiatal hernia The gastroscope was then slowly withdrawn and removed. Gastritis antrum-biopsy large duodenla bulb ulcer with vissuble vessel and clot-2 clips applied, cautery with gold probe and epinephrine 5 cc injected. ADVERSE EVENTS: There were no complications. IMPRESSIONS: 1. Gastritis antrum-biopsy large duodenla bulb ulcer with vissuble vessel and clot-2 clips applied, cautery with gold probe and epinephrine 5 cc injected 2. Retroflexed views revealed a hiatal hernia RECOMMENDATIONS: 1. Await biopsy results. Biopsy results will not be ready for 7-10 days. If you don't hear from us in two weeks, call our office for biopsy results. 2. Anti-reflux regimen 3. Continue PPI 4. Cbc now monitor hb/ht protonix bid carafate 1 gm po bid clear liquid transfuse prn to keep hb more than 8 PATIENT CONDITION: stable DISPOSITION: Inpatient REPEAT EXAM: Return 3 weeks EGD Roxanna Goff MD eSigned: Roxanna Goff MD 04/01/2017 4:18 PM cc: PATIENT NAME: Garland Smith MR#: [id number]
--- NOTE | 2017-04-01 18:34 | HHI.IDPN ---
Note Infectious Disease Note Patient continues to have severe back pain. No fever last 24 hours. Says pain is unbearable with movement. Had endoscopy today. 61-year-old white male who presented to the emergency department with severe pain in the lower back. The patient reports that he had chronic pain for many years and was taking a lot of narcotic pain medications and he went for a myelogram evaluation on 03/22 17. He stated that after the myelogram he started having severe back pain and he also had decreased appetite and occasional headache and then started developing fever and chills. The patient has a TENS unit for pain control which has been in for approximately 5 years. He states that it has functioned well except for recently, that he thinks the battery is dying. The patient reported that he had no fevers prior to the myelogram which was performed on 03/22/2017. PAST MEDICAL HISTORY 1. Chronic back pain. 2. Hypertension. 3. Lithotripsy. 4. Spinal stimulator. ALLERGIES NO KNOWN DRUG ALLERGIES. MEDICATIONS 1. Ceftriaxone. 2. Vancomycin. OBJECTIVE: Vital Signs Date Time Temp Pulse Resp B/P (MAP) Pulse Ox O2 Delivery O2 Flow Rate FiO2 04/01/17 16:30 98.8 67 18 167/69 (101) 95 04/01/17 16:16 81 157/75 04/01/17 12:00 98.7 70 16 147/69 (95) 96 04/01/17 11:50 84 04/01/17 08:00 97.1 50 16 126/66 (86) 94 04/01/17 04:19 76 04/01/17 04:00 98.8 76 16 154/73 (100) 97 04/01/17 00:00 66 04/01/17 00:00 98.5 63 16 114/57 (76) 93 03/31/17 20:45 87 03/31/17 20:00 98.0 82 16 155/69 (97) 96 Laboratory Tests Test 03/31/17 12:20 04/01/17 07:19 04/01/17 11:23 White Blood Count 7.9 TH/MM3 8.6 TH/MM3 Red Blood Count 3.41 MIL/MM3 3.27 MIL/MM3 Hemoglobin 10.9 GM/DL 10.4 GM/DL Hematocrit 31.5 % 30.1 % Mean Corpuscular Volume 92.2 FL 91.8 FL Mean Corpuscular Hemoglobin 31.9 PG 31.7 PG Mean Corpuscular Hemoglobin Concent 34.6 % 34.5 % Red Cell Distribution Width 12.9 % 12.9 % Platelet Count 209 TH/MM3 254 TH/MM3 Mean Platelet Volume 7.6 FL 7.4 FL Neutrophils (%) (Auto) 71.5 % 75.0 % Lymphocytes (%) (Auto) 16.5 % 15.3 % Monocytes (%) (Auto) 8.9 % 7.0 % Eosinophils (%) (Auto) 2.6 % 2.2 % Basophils (%) (Auto) 0.5 % 0.5 % Neutrophils # (Auto) 5.6 TH/MM3 6.5 TH/MM3 Lymphocytes # (Auto) 1.3 TH/MM3 1.3 TH/MM3 Monocytes # (Auto) 0.7 TH/MM3 0.6 TH/MM3 Eosinophils # (Auto) 0.2 TH/MM3 0.2 TH/MM3 Basophils # (Auto) 0.0 TH/MM3 0.0 TH/MM3 CBC Comment DIFF FINAL DIFF FINAL Differential Comment Erythrocyte Sedimentation Rate 43 mm/hr Laboratory Tests Test 03/31/17 12:20 04/01/17 11:23 Blood Urea Nitrogen 13 MG/DL 12 MG/DL Creatinine 0.49 MG/DL 0.57 MG/DL Random Glucose 88 MG/DL 99 MG/DL Total Protein 5.2 GM/DL Albumin 1.9 GM/DL Calcium Level 7.6 MG/DL 7.7 MG/DL Alkaline Phosphatase 43 U/L Aspartate Amino Transf (AST/SGOT) 23 U/L Alanine Aminotransferase (ALT/SGPT) 28 U/L Total Bilirubin 0.3 MG/DL Sodium Level 139 MEQ/L 140 MEQ/L Potassium Level 3.5 MEQ/L 3.6 MEQ/L Chloride Level 105 MEQ/L 105 MEQ/L Carbon Dioxide Level 26.7 MEQ/L 28.7 MEQ/L Anion Gap 7 MEQ/L 6 MEQ/L Estimat Glomerular Filtration Rate 172 ML/MIN 144 ML/MIN C-Reactive Protein 5.74 MG/DL Microbiology Date/Time Source Procedure Growth Status 04/01/17 07:25 Blood Peripheral Aerobic Blood Culture Pending Received 04/01/17 07:25 Blood Peripheral Anaerobic Blood Culture Pending Received 04/01/17 07:19 Blood Peripheral Aerobic Blood Culture Pending Received 04/01/17 07:19 Blood Peripheral Anaerobic Blood Culture Pending Received 04/01/17 08:58 Stool Stool Stool Occult Blood (BUFFY) - Final HEMOCCULT POSITIVE Complete IMAGING: Lumbar Spine CT 03/29/17 0000 Signed Impressions: Service Date/Time: Wednesday, March 29, 2017 17:26 - CONCLUSION: 1. Tiny bubbles of gas within the central canal at L4 and L5, appearing to be intrathecal and presumably iatrogenic. No abscess is demonstrated. 2. Lower lumbar degenerative changes as above. 3. Spinal stimulator leads are partly included on the study. No evidence an associated acute complication. 4. No fracture or subluxation. Daron Christianson MD Lumbar Puncture Fluoroscopy 03/28/17 0000 Signed Impressions: Service Date/Time: Tuesday, March 28, 2017 15:14 - CONCLUSION: Uncomplicated fluoroscopically guided lumbar puncture. Calixto Caldwell MD Chest X-Ray 03/26/17 1657 Signed Impressions: Service Date/Time: Sunday, March 26, 2017 17:06 - CONCLUSION: Cardiomegaly. No acute cardiopulmonary disease. Saulo Abdi MD Head CT 03/26/17 0000 Signed Impressions: Service Date/Time: Sunday, March 26, 2017 20:18 - CONCLUSION: No acute disease. No evidence of acute infarct, hemorrhage, mass or edema. Arnoldo Caba MD Abdomen/Pelvis CT 03/26/17 0000 Signed Impressions: Service Date/Time: Sunday, March 26, 2017 20:23 - CONCLUSION: 1. Multiple bilateral nonobstructing renal calculi. No evidence of hydronephrosis. 2. Hepatic steatosis. 3. Dorsal column stimulator. 4. No acute process. Arnoldo Caba MD PHYSICAL EXAMINATION GENERAL: Moderate distress because of pain. HEENT: Head atraumatic. Extraocular movements grossly intact, pupils reactive to light. No icterus. Oropharynx moist mucosa without lesions. NECK: Supple without swelling or adenopathy. LUNGS: Clear breath sounds. HEART: Regular S1-S2. No murmurs, rub or gallops. ABDOMEN: Bowel sounds present but decreased, soft, nontender. BACK: No tenderness on palpation of the lower back. No erythema over the TENS. EXTREMITIES: No clubbing, cyanosis or edema. SKIN: No visible rash. NEUROLOGIC: No gross focal findings. Weakness in the lower extremities. PSYCHIATRIC: Calm and cooperative. IMPRESSION 1. Fever of unknown origin. Unclear etiology. Patient with negative chest x-ray and blood cultures are also unremarkable. He is status post myelogram and fever could be related to that procedure. He had intractable back pain and it could be related to back issues from before, but he states that the pain is of a different characteristic and it is not clear whether it may be related to infection in the lower back. The white blood cell count is normal, however. 2. No evidence of meningitis on CSF. 3. Probable infection related to the TENS unit. Cannot do MRI because he has the TENS. RECOMMENDATIONS 1. Continue vancomycin. 2. Continue Ceftriaxone. 3. In my opinion the TENS unit needs to be removed. Surgery consulted. Surgeons here say they cannot remove the TENS. He may need a pain specialist to remove it. Dr Hope aware and will be checking for available specialist. Patient also being followed by orthopedics. No certain what antibiotics would be appropriate going forward given negative cultures. 4. Monitor temperature. 5. Monitor clinical status. Yanick Sykes MD Apr 01, 2017 18:34
[2017-04-01] MEDS: traZODone HCL 100 MG TAB PO SCH (20:24)
[2017-04-01] MEDS ORDERED: PHARMACY ORDERED LAB ONE (22:45)
[2017-04-01] MEDS: PANTOPRAZOLE SODIUM 40 MG VIAL IV PUSH SCH (23:19)
[2017-04-02] VITALS (9 sets, daily range): BP systolic 102–162; BP diastolic 56–73; PULSE 66–83; RESP 16–20; TEMP 96.3–99.3; O2SAT 94–98
[2017-04-02] MEDS: HYDROmorphone HCL PF 2 MG/ML VIAL IV PRN ×2 (01:56→17:20)
[2017-04-02] MEDS: DIAZEPAM 5 MG TAB PO PRN (04:24)
[2017-04-02] MEDS: ACETAMINOPHEN/HYDROcodone 325 MG/10 MG TAB PO PRN ×6 (04:24→23:48)
[2017-04-02 06:13] LABS: CREATININE 0.51 MG/DL (0.60-1.30)
[2017-04-02] MEDS: DOCUSATE SODIUM 50 MG/SENNA 8.6 MG TAB PO SCH ×2 (08:34→20:05)
[2017-04-02] MEDS: oxyCODONE HCL 20 MG CONTROLLED RELEASE TAB PO SCH ×2 (08:34→20:06)
[2017-04-02] MEDS: SODIUM CHLORIDE 0.9% FLUSH 10 ML FLUSH IV FLUSH SCH ×2 (08:34→20:04)
[2017-04-02] MEDS ORDERED: SUCRALFATE 1 GM TAB PO SCH (08:45)
--- NOTE | 2017-04-02 08:49 | HHI.PR ---
Subjective Remarks T max 99.7 last night, no chills this am- definitely feels better per patient states he is willing to work with PT today and sit on the side of the bed good po- no further episodes of melena moving legs more spontaneously with no groaning= more flexion pain better controlled per patient- pain stimulator may need to be recharged ? battery may be dying left message with [facility] [address] [phone] Objective Vitals Vital Signs Date Time Temp Pulse Resp B/P (MAP) Pulse Ox O2 Delivery O2 Flow Rate FiO2 04/02/17 04:03 83 04/02/17 04:00 99.3 77 17 162/71 (101) 95 04/02/17 00:13 76 04/02/17 00:00 98.8 71 16 131/69 (89) 98 04/01/17 20:37 75 04/01/17 20:00 99.7 84 17 166/69 (101) 95 04/01/17 16:30 98.8 67 18 167/69 (101) 95 04/01/17 16:16 81 157/75 04/01/17 16:00 99.8 81 16 143/93 (110) 93 04/01/17 12:00 98.7 70 16 147/69 (95) 96 04/01/17 11:50 84 I/O 04/01/17 04/01/17 04/01/17 04/02/17 04/02/17 04/02/17 06:59 14:59 22:59 06:59 14:59 22:59 Intake Total 1220 ml 995 ml Output Total 750 ml 850 ml Balance 470 ml 145 ml Intake Oral 720 ml 480 ml IV Total 515 ml Other 500 ml Output Urine Total 750 ml 850 ml # Bowel Movements 2 Result Diagram: 04/02/17 0506 04/02/17 0506 Imaging Last Impressions Lumbar Spine CT 03/29/17 0000 Signed Impressions: Service Date/Time: Wednesday, March 29, 2017 17:26 - CONCLUSION: 1. Tiny bubbles of gas within the central canal at L4 and L5, appearing to be intrathecal and presumably iatrogenic. No abscess is demonstrated. 2. Lower lumbar degenerative changes as above. 3. Spinal stimulator leads are partly included on the study. No evidence an associated acute complication. 4. No fracture or subluxation. Daron Christianson MD Lumbar Puncture Fluoroscopy 03/28/17 0000 Signed Impressions: Service Date/Time: Tuesday, March 28, 2017 15:14 - CONCLUSION: Uncomplicated fluoroscopically guided lumbar puncture. Calixto Caldwell MD Chest X-Ray 03/26/17 1657 Signed Impressions: Service Date/Time: Sunday, March 26, 2017 17:06 - CONCLUSION: Cardiomegaly. No acute cardiopulmonary disease. Saulo Abdi MD Head CT 03/26/17 0000 Signed Impressions: Service Date/Time: Sunday, March 26, 2017 20:18 - CONCLUSION: No acute disease. No evidence of acute infarct, hemorrhage, mass or edema. Arnoldo Caba MD Abdomen/Pelvis CT 03/26/17 0000 Signed Impressions: Service Date/Time: Sunday, March 26, 2017 20:23 - CONCLUSION: 1. Multiple bilateral nonobstructing renal calculi. No evidence of hydronephrosis. 2. Hepatic steatosis. 3. Dorsal column stimulator. 4. No acute process. Arnoldo Caba MD Objective Remarks awake and alert, oriented x 3, interactive still looks pale no nuchal rigidity anicteric lungs clear regular rhythm abdomen soft, nontender villar in place extremities no edema, no knee effusion, flexed knees and moved thighs-- more today with no groaning moves toes and feet freely grossly no sensory deficits Procedures 03/28- LP 04/01- EGD- with duodenal ulcer- bleeding vessel clipped and cautery performed Urinary Catheter: Yes Assessment to: Remove Date of Insertion: Mar 28, 2017 Date of Removal: Apr 02, 2017 A/P Problem List: (1) SIRS (systemic inflammatory response syndrome) ICD Code: R65.10 - Systemic inflammatory response syndrome (SIRS) of non- infectious origin without acute organ dysfunction (2) Intractable back pain ICD Code: M54.9 - Dorsalgia, unspecified (3) Hypotension ICD Code: I95.9 - Hypotension, unspecified (4) Renal insufficiency ICD Code: N28.9 - Disorder of kidney and ureter, unspecified Assessment and Plan 61 years old male FUO/SIRS: Source unclear with history of recent s/p Myelogram for severe back pain r/o disciitis/arachnoiditis S/P LP 03/28 Blood Cultures negative so far , will follow. Spinal fluid studies cultures pending. AFB studies- negative Continue w/ IV Abx- Vancomycin and Rocephin CXR w/ no acute findings, U/a negative. ID ff- will defer to service regarding timing of PICC surgery consulted- for removal of spinal stimulator- d/w Dr. Segal- not here called [facility] [place] and left message Intractable Back Pain: h/o chronic back pain, follows w/ Dr. Lobo, s/p Spinal Stimulator, now w/ severe exacerbation. Analgesics/antiemetics, Valium prn for muscle spasm. no fecal or urinary incontinence. CT - no abscess current pain regimen working on Oxycontin 40 mg bid and Hydrocodone 10 q 4 prn, IV Dilaudid prn for severe pain fentanyl patch scheduled maybe if Spinal stimulator is removed- we can get an MRI of the back Acute Renal Insufficiency: Creatinine 1.44,- creatinine improved. heplock and monitor, on villar- consider change to condom UGIB secondary to duodenal ulcer s/p EGD with cautery and clipping of bleeding vessel 04/01 PPI bid- change to po Carafate 1 gm bid FF CBC- transufse if less than 8 Reepat EGD as OP in 3 weeks- with Dr. Goff type and x match 2 units standby Hold Lovenox advance diet PT consult- d/w therapist- will see him for us today - appreciated Hypotension: Transient. Improved, DVT Prophylaxis: SCD/Teds. - no chemical prophylaxis with UGIB CM ff- - maybe a Espinal candidate now patient is more motivated and willing to work with PT long discussion with him- expressed full understanding and great motivation Liliana Hoep MD Apr 02, 2017 08:49
[2017-04-02] MEDS: PANTOPRAZOLE SODIUM 40 MG VIAL IV PUSH SCH ×2 (11:34→23:46)
[2017-04-02] MEDS: SUCRALFATE 1 GM TAB PO SCH ×2 (11:34→16:25)
[2017-04-02] MEDS: VANCOMYCIN INJ 1,500 MG in SODIUM CHLORID 0.9% 500 ML INJ 500 ML IV SCH ×2 (11:34→23:46)
[2017-04-02 12:35] LABS: AUTOMATED NEUTROPHIL # 5.8 TH/MM3 (1.8-7.7); BASOPHIL # 0.1 TH/MM3 (0-0.2); BASOPHIL % 0.7 % (0.0-2.0); EOSINOPHIL # 0.2 TH/MM3 (0-0.4); EOSINOPHIL % 2.4 % (0.0-4.0); LYMPH % 17.1 % (9.0-44.0); LYMPHOCYTE # 1.4 TH/MM3 (1.0-4.8); MEAN CELL VOLUME 91.9 FL (80.0-100.0); MEAN CORPUSCULAR HEMOGLOBIN 32.7 PG (27.0-34.0); MEAN CORPUSCULAR HGB CONC 35.6 % (32.0-36.0); MEAN PLATELET VOLUME 8.1 FL (7.0-11.0); MONO % 7.3 % (0.0-8.0); MONOCYTE # 0.6 TH/MM3 (0-0.9); NEUT % 72.5 % (16.0-70.0); PLATELET COUNT 281 TH/MM3 (150-450); RED BLOOD COUNT 2.94 MIL/MM3 (4.50-5.90)
[2017-04-02 12:37] LABS: HEMATOCRIT 27.5 % (39.0-51.0); HEMOGLOBIN 9.5 GM/DL (13.0-17.0)
[2017-04-02] MEDS: REMOVE OLD FENTANYL PATCH T-DERMAL SCH (12:55)
[2017-04-02 13:06] LABS: BANDS 4 % (0-6); LYMPHOCYTES 13 % (9-44); MONOCYTES 5 % (0-8); MYELOCYTES 3 % (0-0); NEUTROPHIL # MANUAL DIFF 6.5 TH/MM3 (1.8-7.7); POLYS (SEG NEUTROPHILS) 74 % (16-70)
[2017-04-02 13:07] LABS: TOXIC GRANULATION 1+ (NORMAL)
--- NOTE | 2017-04-02 14:19 | HHI.GIFU ---
Subjective Remarks Pt resting in bed in no apparent distress. Ate grits and martin for a late breakfast/early lunch. Denies nausea, vomiting, abdominal pain. Reports continued loose stool, started refusing stool softeners. (Betina Rossi) Objective Vitals I&O Vital Signs Date Time Temp Pulse Resp B/P (MAP) Pulse Ox O2 Delivery O2 Flow Rate FiO2 04/02/17 08:00 96.3 66 18 131/69 (89) 95 04/02/17 04:03 83 04/02/17 04:00 99.3 77 17 162/71 (101) 95 04/02/17 00:13 76 04/02/17 00:00 98.8 71 16 131/69 (89) 98 04/01/17 20:37 75 04/01/17 20:00 99.7 84 17 166/69 (101) 95 04/01/17 16:30 98.8 67 18 167/69 (101) 95 04/01/17 16:16 81 157/75 04/01/17 16:00 99.8 81 16 143/93 (110) 93 I/O 04/01/17 04/01/17 04/01/17 04/02/17 04/02/17 04/02/17 07:00 15:00 23:00 07:00 15:00 23:00 Intake Total 1220 ml 995 ml Output Total 750 ml 850 ml Balance 470 ml 145 ml Intake Oral 720 ml 480 ml IV Total 515 ml Other 500 ml Output Urine Total 750 ml 850 ml # Bowel Movements 2 Laboratory Laboratory Tests Test 04/01/17 22:48 04/02/17 05:06 Vancomycin Level Trough 11.4 White Blood Count 8.0 Red Blood Count 2.94 Hemoglobin 9.5 Hematocrit 27.5 Mean Corpuscular Volume 91.9 Mean Corpuscular Hemoglobin 32.7 Mean Corpuscular Hemoglobin Concent 35.6 Red Cell Distribution Width 13.0 Platelet Count 281 Mean Platelet Volume 8.1 Neutrophils (%) (Auto) 72.5 Lymphocytes (%) (Auto) 17.1 Monocytes (%) (Auto) 7.3 Eosinophils (%) (Auto) 2.4 Basophils (%) (Auto) 0.7 Neutrophils # (Auto) 5.8 Lymphocytes # (Auto) 1.4 Monocytes # (Auto) 0.6 Eosinophils # (Auto) 0.2 Basophils # (Auto) 0.1 CBC Comment AUTO DIFF Differential Total Cells Counted 100 Neutrophils % (Manual) 74 Band Neutrophils % 4 Lymphocytes % 13 Monocytes % 5 Eosinophils % 1 Neutrophils # (Manual) 6.5 Myelocytes 3 Differential Comment FINAL DIFF MANUAL Toxic Granulation 1+ Platelet Estimate NORMAL Platelet Morphology Comment NORMAL Creatinine 0.51 Estimat Glomerular Filtration Rate 164 Date/Time Source Procedure Growth Status 04/01/17 07:25 Blood Peripheral Aerobic Blood Culture - Preliminary NO GROWTH IN 1 DAY Resulted 04/01/17 07:25 Blood Peripheral Anaerobic Blood Culture - Preliminary NO GROWTH IN 1 DAY Resulted 03/28/17 15:24 Cerebral Spinal Fluid Lumbar Puncture Fungal Smear - Final NO FUNGAL ELEMENTS SEEN. Resulted 03/28/17 15:24 Cerebral Spinal Fluid Lumbar Puncture Fungal Culture Pending Resulted 04/01/17 08:58 Stool Stool Stool Occult Blood (BUFFY) - Final HEMOCCULT POSITIVE Complete 03/26/17 17:33 Nasal Washing Influenza Types A,B Antigen (BUFFY) - Final NEGATIVE FOR FLU A AND B ANTIGEN.... Complete 03/27/17 17:35 Urine Catheterized Urine Urine Culture - Final NO GROWTH IN 48 HOURS. Complete 03/28/17 15:24 Wound Other Acid Fast Stain - Final NO ACID FAST BACILLI SEEN Resulted 03/28/17 15:24 Wound Other Mycobacterial Culture Pending Resulted Imaging Last Impressions Lumbar Spine CT 03/29/17 0000 Signed Impressions: Service Date/Time: Wednesday, March 29, 2017 17:26 - CONCLUSION: 1. Tiny bubbles of gas within the central canal at L4 and L5, appearing to be intrathecal and presumably iatrogenic. No abscess is demonstrated. 2. Lower lumbar degenerative changes as above. 3. Spinal stimulator leads are partly included on the study. No evidence an associated acute complication. 4. No fracture or subluxation. Daron Christianson MD Lumbar Puncture Fluoroscopy 03/28/17 0000 Signed Impressions: Service Date/Time: Tuesday, March 28, 2017 15:14 - CONCLUSION: Uncomplicated fluoroscopically guided lumbar puncture. Calixto Caldwell MD Chest X-Ray 03/26/17 [id number] Signed Impressions: Service Date/Time: Sunday, March 26, 2017 17:06 - CONCLUSION: Cardiomegaly. No acute cardiopulmonary disease. Saulo Abdi MD Head CT 03/26/17 0000 Signed Impressions: Service Date/Time: Sunday, March 26, 2017 20:18 - CONCLUSION: No acute disease. No evidence of acute infarct, hemorrhage, mass or edema. Arnoldo Caba MD Abdomen/Pelvis CT 03/26/17 0000 Signed Impressions: Service Date/Time: Sunday, March 26, 2017 20:23 - CONCLUSION: 1. Multiple bilateral nonobstructing renal calculi. No evidence of hydronephrosis. 2. Hepatic steatosis. 3. Dorsal column stimulator. 4. No acute process. Arnoldo Caba MD Physical Exam HEENT: Normocephalic; atraumatic CHEST: Even/unlabored CARDIAC: RRR ABDOMEN: Rounds, soft, nontender, bowel sounds active EXTREMITIES: No clubbing, cyanosis, or edema. SKIN: Normal; no rash; no jaundice. 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 (Betina Rossi) Assessment and Plan Assessment: (1) Black tarry stools ICD Codes: K92.1 - Melena (2) GI bleed ICD Codes: K92.2 - Gastrointestinal hemorrhage, unspecified Plan Assessment: - Melena- started yesterday- S/P EGD (04/01) --> Gastritis antrum. Large duodenal bulb ulcer with visible vessel and clot- 2 clips applied, cautery with gold probe and epinephrine 5cc injected. Hiatal hernia. Pt denies any continued melena today, does report continued loose stools. H/H currently 9.5/27.5. Has not receiving a blood transfusion. Of note, pt denies taking blood thinners at home, states he was started on Eliquis in the hospital Plan: - Continue Carafate - Continue Protonix - NANDO - Monitor H/H - Transfuse as needed - Biopsy pending - Supportive care This patient has been seen and examined by myself and Dr. Goff and this note is written on her behalf (Betina Rossi) Physician Comments seen,examined agree with above gi will sign off egd in 6-8 weeks call us as needed fu gi 2 weeks (Roxanna Goff MD) Betina Rossi Apr 02, 2017 14:19 Roxanna Goff MD Apr 02, 2017 18:43
[2017-04-02] MEDS: cefTRIAXone INJ 2,000 MG in SODIUM CHLORIDE 0.9% INJ 100 ML IV SCH (16:25)
[2017-04-02] MEDS: traZODone HCL 100 MG TAB PO SCH (23:48)
[2017-04-03] VITALS (7 sets, daily range): BP systolic 95–151; BP diastolic 56–65; PULSE 64–101; RESP 18–20; TEMP 97–99.5; O2SAT 91–95
[2017-04-03] MEDS: ACETAMINOPHEN/HYDROcodone 325 MG/10 MG TAB PO PRN ×5 (04:01→23:55)
[2017-04-03] MEDS: SUCRALFATE 1 GM TAB PO SCH ×2 (05:58→16:02)
[2017-04-03] MEDS: HYDROmorphone HCL PF 2 MG/ML VIAL IV PRN ×3 (05:59→17:18)
[2017-04-03] MEDS: DOCUSATE SODIUM 50 MG/SENNA 8.6 MG TAB PO SCH ×2 (09:35→22:37)
[2017-04-03] MEDS: oxyCODONE HCL 20 MG CONTROLLED RELEASE TAB PO SCH ×2 (09:36→22:36)
[2017-04-03] MEDS: SODIUM CHLORIDE 0.9% FLUSH 10 ML FLUSH IV FLUSH SCH ×2 (09:36→22:34)
[2017-04-03] MEDS: PANTOPRAZOLE SODIUM 40 MG VIAL IV PUSH SCH ×2 (11:00→22:34)
[2017-04-03] MEDS: VANCOMYCIN INJ 1,500 MG in SODIUM CHLORID 0.9% 500 ML INJ 500 ML IV SCH ×2 (11:55→22:34)
--- NOTE | 2017-04-03 12:25 | HHI.PR ---
Subjective Remarks feeling much better up on chair good po + flatus up and ambulated with walker around room - did more Objective Vitals Vital Signs Date Time Temp Pulse Resp B/P (MAP) Pulse Ox O2 Delivery O2 Flow Rate FiO2 04/03/17 11:35 97.0 71 19 95/65 (75) 92 04/03/17 07:49 98.3 78 19 110/61 (77) 91 04/03/17 04:00 101 04/03/17 04:00 99.5 97 20 151/65 (93) 92 04/02/17 23:55 98.1 81 18 117/66 (83) 96 04/02/17 20:25 99.1 78 18 159/73 (101) 95 04/02/17 16:00 97.2 73 18 102/56 (71) 94 I/O 04/02/17 04/02/17 04/02/17 04/03/17 04/03/17 04/03/17 07:00 15:00 23:00 07:00 15:00 23:00 Intake Total 995 ml 720 ml 1235 ml Output Total 850 ml 600 ml 0 ml 775 ml Balance 145 ml -600 ml 720 ml 460 ml Intake Oral 480 ml 720 ml 720 ml IV Total 515 ml 515 ml Output Urine Total 850 ml 600 ml 0 ml 775 ml Bladder Scan Volume Amount 813 ml # Bowel Movements 0 0 Result Diagram: 04/02/17 0506 04/02/17 0506 Imaging Last Impressions Lumbar Spine CT 03/29/17 0000 Signed Impressions: Service Date/Time: Wednesday, March 29, 2017 17:26 - CONCLUSION: 1. Tiny bubbles of gas within the central canal at L4 and L5, appearing to be intrathecal and presumably iatrogenic. No abscess is demonstrated. 2. Lower lumbar degenerative changes as above. 3. Spinal stimulator leads are partly included on the study. No evidence an associated acute complication. 4. No fracture or subluxation. Daron Christianson MD Lumbar Puncture Fluoroscopy 03/28/17 0000 Signed Impressions: Service Date/Time: Tuesday, March 28, 2017 15:14 - CONCLUSION: Uncomplicated fluoroscopically guided lumbar puncture. Calixto Caldwell MD Chest X-Ray 03/26/17 [id number] Signed Impressions: Service Date/Time: Sunday, March 26, 2017 17:06 - CONCLUSION: Cardiomegaly. No acute cardiopulmonary disease. Saulo Abdi MD Head CT 03/26/17 0000 Signed Impressions: Service Date/Time: Sunday, March 26, 2017 20:18 - CONCLUSION: No acute disease. No evidence of acute infarct, hemorrhage, mass or edema. Arnoldo Caba MD Abdomen/Pelvis CT 03/26/17 0000 Signed Impressions: Service Date/Time: Sunday, March 26, 2017 20:23 - CONCLUSION: 1. Multiple bilateral nonobstructing renal calculi. No evidence of hydronephrosis. 2. Hepatic steatosis. 3. Dorsal column stimulator. 4. No acute process. Arnoldo Caba MD Objective Remarks awake and alert, oriented x 3, interactive and in beter spirits no nuchal rigidity anicteric lungs clear regular rhythm abdomen soft, nontender extremities no edema, no knee effusion, flexed knees and moved thighs-- more leg elevation today- with no groaning moves toes and feet freely grossly no sensory deficits Procedures 03/28- LP 04/01- EGD- with duodenal ulcer- bleeding vessel clipped and cautery performed Date of Insertion: Mar 28, 2017 Date of Removal: Apr 02, 2017 A/P Problem List: (1) SIRS (systemic inflammatory response syndrome) ICD Code: R65.10 - Systemic inflammatory response syndrome (SIRS) of non- infectious origin without acute organ dysfunction (2) Intractable back pain ICD Code: M54.9 - Dorsalgia, unspecified (3) Hypotension ICD Code: I95.9 - Hypotension, unspecified (4) Renal insufficiency ICD Code: N28.9 - Disorder of kidney and ureter, unspecified Assessment and Plan 61 years old male FUO/SIRS: Source unclear with history of recent s/p Myelogram for severe back pain r/o disciitis/arachnoiditis S/P LP 03/28 Blood Cultures negative Spinal fluid studies cultures negative. AFB studies- negative Continue w/ IV Abx- Vancomycin and Rocephin CXR w/ no acute findings, U/a negative. ID ff- Neurosurgery consulted to evaluate for removal of spine stimulator (located at the right lower back) 04/03 -[facility] [place] and left message- will call the company of the pain stimulator today- - will come and give us 1800 number- ? malfunctioning Intractable Back Pain: h/o chronic back pain, follows w/ Dr. Lobo, s/p Spinal Stimulator, now w/ severe exacerbation. - IMProved Valium prn for muscle spasm. no fecal or urinary incontinence. CT - no abscess current pain regimen working on Oxycontin 40 mg bid and Hydrocodone 10 q 4 prn, IV Dilaudid prn for severe pain fentanyl patch scheduled maybe if Spinal stimulator is removed- we can get an MRI of the back Acute Renal Insufficiency: Creatinine 1.44,- creatinine improved. heplock and monitor, villar out 04/02- voiding well UGIB secondary to duodenal ulcer s/p EGD with cautery and clipping of bleeding vessel 04/01 PPI bid- change to po Carafate 1 gm bid FF CBC- transufse if less than 8 Reepat EGD as OP in 3 weeks- with Dr. Goff type and x match 2 units standby Hold Lovenox advance diet PT consult- - appreciated Hypotension: Transient. Improved, DVT Prophylaxis: SCD/Teds. - no chemical prophylaxis with UGIB CM ff- - maybe a Espinal candidate now patient is more motivated and willing to work with PT long discussion with him- expressed full understanding and great motivation Liliana Hope MD Apr 03, 2017 12:25
[2017-04-03] MEDS: DIAZEPAM 5 MG TAB PO PRN (16:02)
[2017-04-03] MEDS: cefTRIAXone INJ 2,000 MG in SODIUM CHLORIDE 0.9% INJ 100 ML IV SCH (16:03)
[2017-04-04] VITALS (7 sets, daily range): BP systolic 58–142; BP diastolic 54–69; PULSE 54–93; RESP 16–53; TEMP 96–100; O2SAT 91–95
[2017-04-04] MEDS: traZODone HCL 100 MG TAB PO SCH ×2 (01:00→21:00)
[2017-04-04] MEDS: HYDROmorphone HCL PF 2 MG/ML VIAL IV PRN ×2 (01:00→07:06)
[2017-04-04] MEDS: ACETAMINOPHEN/HYDROcodone 325 MG/10 MG TAB PO PRN ×6 (03:49→21:04)
[2017-04-04 06:28] LABS: CREATININE 0.77 MG/DL (0.60-1.30)
[2017-04-04] MEDS: SUCRALFATE 1 GM TAB PO SCH ×2 (07:06→16:47)
[2017-04-04] MEDS: DOCUSATE SODIUM 50 MG/SENNA 8.6 MG TAB PO SCH ×2 (10:34→21:01)
[2017-04-04] MEDS: oxyCODONE HCL 20 MG CONTROLLED RELEASE TAB PO SCH ×2 (10:35→21:01)
[2017-04-04] MEDS: SODIUM CHLORIDE 0.9% FLUSH 10 ML FLUSH IV FLUSH SCH ×2 (10:35→21:02)
[2017-04-04] MEDS: SENNOSIDES 8.6 MG TAB PO PRN ×2 (10:36→21:00)
[2017-04-04] MEDS ORDERED: PHARMACY ORDERED LAB ONE (10:45)
[2017-04-04] MEDS: VANCOMYCIN INJ 1,500 MG in SODIUM CHLORID 0.9% 500 ML INJ 500 ML IV SCH (12:55)
--- NOTE | 2017-04-04 13:12 | HHI.PR ---
Subjective Remarks afebrile- up on bedside chair feeling better no incontinence moving all extremities spontaneously- showing progress good po no melena or hematochezia Objective Vitals Vital Signs Date Time Temp Pulse Resp B/P (MAP) Pulse Ox O2 Delivery O2 Flow Rate FiO2 04/04/17 12:00 96.0 61 53 58/ 93 04/04/17 08:00 96.7 54 17 86/54 (65) 91 04/04/17 04:23 98.8 86 18 98/54 (69) 95 04/04/17 00:24 98.4 90 18 142/62 (88) 95 04/03/17 20:25 98.4 78 18 118/58 (78) 95 04/03/17 15:03 97.7 78 19 111/56 (74) 94 I/O 04/03/17 04/03/17 04/03/17 04/04/17 04/04/17 04/04/17 07:00 15:00 23:00 07:00 15:00 23:00 Intake Total 1235 ml 360 ml 240 ml Output Total 775 ml 200 ml Balance 460 ml 160 ml 240 ml Intake Oral 720 ml 360 ml 240 ml IV Total 515 ml Output Urine Total 775 ml 200 ml Bladder Scan Volume Amount 813 ml # Voids 0 # Bowel Movements 0 0 0 Result Diagram: 04/02/17 0506 04/04/17 0501 Imaging Last Impressions Lumbar Spine CT 03/29/17 0000 Signed Impressions: Service Date/Time: Wednesday, March 29, 2017 17:26 - CONCLUSION: 1. Tiny bubbles of gas within the central canal at L4 and L5, appearing to be intrathecal and presumably iatrogenic. No abscess is demonstrated. 2. Lower lumbar degenerative changes as above. 3. Spinal stimulator leads are partly included on the study. No evidence an associated acute complication. 4. No fracture or subluxation. Daron Christianson MD Lumbar Puncture Fluoroscopy 03/28/17 0000 Signed Impressions: Service Date/Time: Tuesday, March 28, 2017 15:14 - CONCLUSION: Uncomplicated fluoroscopically guided lumbar puncture. Calixto Caldwell MD Chest X-Ray 03/26/17 [id number] Signed Impressions: Service Date/Time: Sunday, March 26, 2017 17:06 - CONCLUSION: Cardiomegaly. No acute cardiopulmonary disease. Saulo Abdi MD Head CT 03/26/17 0000 Signed Impressions: Service Date/Time: Sunday, March 26, 2017 20:18 - CONCLUSION: No acute disease. No evidence of acute infarct, hemorrhage, mass or edema. Arnoldo Caba MD Abdomen/Pelvis CT 03/26/17 0000 Signed Impressions: Service Date/Time: Sunday, March 26, 2017 20:23 - CONCLUSION: 1. Multiple bilateral nonobstructing renal calculi. No evidence of hydronephrosis. 2. Hepatic steatosis. 3. Dorsal column stimulator. 4. No acute process. Arnoldo Caba MD Objective Remarks awake and alert, oriented x 3, interactive, good spirits no nuchal rigidity anicteric lungs clear regular rhythm abdomen soft, nontender extremities no edema, no knee effusion, flexed knees and moved thighs-- more LE movements/leg elevations - comfortable moves toes and feet freely grossly no sensory deficits Procedures 03/28- LP 04/01- EGD- with duodenal ulcer- bleeding vessel clipped and cautery performed Date of Insertion: Mar 28, 2017 Date of Removal: Apr 02, 2017 A/P Problem List: (1) SIRS (systemic inflammatory response syndrome) ICD Code: R65.10 - Systemic inflammatory response syndrome (SIRS) of non- infectious origin without acute organ dysfunction (2) Intractable back pain ICD Code: M54.9 - Dorsalgia, unspecified (3) Hypotension ICD Code: I95.9 - Hypotension, unspecified (4) Renal insufficiency ICD Code: N28.9 - Disorder of kidney and ureter, unspecified Assessment and Plan 61 years old male FUO/SIRS: Source unclear with history of recent s/p Myelogram for severe back pain r/o disciitis/arachnoiditis- T down for several days- S/P LP 03/28 Blood Cultures negative Spinal fluid studies cultures negative. AFB studies- negative Continue w/ IV Abx- Vancomycin and Rocephin per Dr. Sykes CXR w/ no acute findings, U/a negative. ID ff- will defer to service regarding timing of PICC Neurosurgery consulted to evaluate for removal of spine stimulator (located at the right lower back) 04/03 -[facility] [place] and left message- will call the company of the pain stimulator today- - will come and give us [phone] number- ? malfunctioning- per patient ? not charging d/w - she called their pain specialist in [place] and they will call her back with possible referral to a pain specialist around the area for OP ff up Intractable Back Pain: h/o chronic back pain, follows w/ Dr. Lobo, s/p Spinal Stimulator presented with severe exacerbation. - IMPROVED on current regimen. adjust as needed Valium prn for muscle spasm. no fecal or urinary incontinence. CT - no abscess current pain regimen working on Oxycontin 40 mg bid and Hydrocodone 10 q 4 prn, IV Dilaudid prn for severe pain fentanyl patch scheduled maybe if Spinal stimulator is removed- we can get an MRI of the back- Neurosurgery consulted to evaluate for removal Once spinal stimulator removed- we can proceed with MRI of the back for further evaluation of the back pain Acute Renal Insufficiency: Creatinine 1.44,- creatinine improved. heplock and monitor, villar out 04/02- voiding well UGIB secondary to duodenal ulcer s/p EGD with cautery and clipping of bleeding vessel 04/01 PPI bid- po Carafate 1 gm bid FF CBC- transufse if less than 8 Repat EGD as OP in 3 weeks- with Dr. Goff type and x match 2 units standby no Lovenox with recent GIB advance diet PT consult- - appreciated Hypotension: Transient. Improved, DVT Prophylaxis: SCD/Teds. - no chemical prophylaxis with UGIB advise patient to particiapate with PT and moves legs and do leg pumping exercises CM ff- - maybe a Espinal candidate now patient is more motivated and willing to work with PT long discussion with him- expressed full understanding and great motivation Liliana Hope MD Apr 04, 2017 13:12
--- NOTE | 2017-04-04 13:46 | HHI.IDPN ---
Note Infectious Disease Note Patient notes improvement in back pain. Remains afebrile. No chills. 61-year-old white male who presented to the emergency department with severe pain in the lower back. The patient reports that he had chronic pain for many years and was taking a lot of narcotic pain medications and he went for a myelogram evaluation on 03/22 17. He stated that after the myelogram he started having severe back pain and he also had decreased appetite and occasional headache and then started developing fever and chills. The patient has a TENS unit for pain control which has been in for approximately 5 years. He states that it has functioned well except for recently, that he thinks the battery is dying. The patient reported that he had no fevers prior to the myelogram which was performed on 03/22/2017. PAST MEDICAL HISTORY 1. Chronic back pain. 2. Hypertension. 3. Lithotripsy. 4. Spinal stimulator. ALLERGIES NO KNOWN DRUG ALLERGIES. MEDICATIONS 1. Ceftriaxone. 2. Vancomycin. OBJECTIVE: Laboratory Tests Test 04/04/17 05:01 Creatinine 0.77 MG/DL Estimat Glomerular Filtration Rate 102 ML/MIN Vital Signs Date Time Temp Pulse Resp B/P (MAP) Pulse Ox O2 Delivery O2 Flow Rate FiO2 04/01/17 16:30 98.8 67 18 167/69 (101) 95 04/01/17 16:16 81 157/75 04/01/17 12:00 98.7 70 16 147/69 (95) 96 04/01/17 11:50 84 04/01/17 08:00 97.1 50 16 126/66 (86) 94 04/01/17 04:19 76 04/01/17 04:00 98.8 76 16 154/73 (100) 97 04/01/17 00:00 66 04/01/17 00:00 98.5 63 16 114/57 (76) 93 03/31/17 20:45 87 03/31/17 20:00 98.0 82 16 155/69 (97) 96 Laboratory Tests Test 04/04/17 05:01 Creatinine 0.77 MG/DL Estimat Glomerular Filtration Rate 102 ML/MIN Microbiology Date/Time Source Procedure Growth Status 04/01/17 07:25 Blood Peripheral Aerobic Blood Culture Pending Received 04/01/17 07:25 Blood Peripheral Anaerobic Blood Culture Pending Received 04/01/17 07:19 Blood Peripheral Aerobic Blood Culture Pending Received 04/01/17 07:19 Blood Peripheral Anaerobic Blood Culture Pending Received 04/01/17 08:58 Stool Stool Stool Occult Blood (BUFFY) - Final HEMOCCULT POSITIVE Complete IMAGING: Lumbar Spine CT 03/29/17 0000 Signed Impressions: Service Date/Time: Wednesday, March 29, 2017 17:26 - CONCLUSION: 1. Tiny bubbles of gas within the central canal at L4 and L5, appearing to be intrathecal and presumably iatrogenic. No abscess is demonstrated. 2. Lower lumbar degenerative changes as above. 3. Spinal stimulator leads are partly included on the study. No evidence an associated acute complication. 4. No fracture or subluxation. Daron Christianson MD Lumbar Puncture Fluoroscopy 03/28/17 0000 Signed Impressions: Service Date/Time: Tuesday, March 28, 2017 15:14 - CONCLUSION: Uncomplicated fluoroscopically guided lumbar puncture. Calixto Caldwell MD Chest X-Ray 03/26/17 [id number] Signed Impressions: Service Date/Time: Sunday, March 26, 2017 17:06 - CONCLUSION: Cardiomegaly. No acute cardiopulmonary disease. Saulo Abdi MD Head CT 03/26/17 0000 Signed Impressions: Service Date/Time: Sunday, March 26, 2017 20:18 - CONCLUSION: No acute disease. No evidence of acute infarct, hemorrhage, mass or edema. Arnoldo Caba MD Abdomen/Pelvis CT 03/26/17 0000 Signed Impressions: Service Date/Time: Sunday, March 26, 2017 20:23 - CONCLUSION: 1. Multiple bilateral nonobstructing renal calculi. No evidence of hydronephrosis. 2. Hepatic steatosis. 3. Dorsal column stimulator. 4. No acute process. Arnoldo Caba MD PHYSICAL EXAMINATION GENERAL: no acute distress. HEENT: No icterus. Oropharynx moist mucosa without lesions. NECK: Supple without swelling or adenopathy. LUNGS: Clear breath sounds. HEART: Regular S1-S2. No murmurs, rub or gallops. ABDOMEN: Bowel sounds present but decreased, soft, nontender. BACK: No tenderness on palpation of the lower back. No erythema over the TENS. EXTREMITIES: No clubbing, cyanosis or edema. SKIN: No visible rash. NEUROLOGIC: No gross focal findings. Weakness in the lower extremities. PSYCHIATRIC: Calm and cooperative. IMPRESSION 1. Fever of unknown origin. Unclear etiology. Patient with negative chest x-ray and blood cultures are also unremarkable. He is status post myelogram and fever could be related to that procedure. He had intractable back pain and it could be related to back issues from before, but he states that the pain is of a different characteristic and it is not clear whether it may be related to infection in the lower back. The white blood cell count is normal, however. 2. No evidence of meningitis on CSF. 3. Probable infection related to the TENS unit. Cannot do MRI because he has the TENS. Cultures are negative. RECOMMENDATIONS 1. Stop vancomycin. 2. Continue Ceftriaxone. 3. In my opinion the TENS unit needs to be removed. Surgery consulted. Surgeons here say they cannot remove the TENS. He may need a pain specialist to remove it. Dr Hope aware and will be checking for available specialist. Patient also being followed by orthopedics. Not certain what antibiotics would be appropriate going forward given negative cultures. 4. Monitor temperature. May need to discontinue IV antibiotic. Once the TENS unit is removed he can have an MRI for further work up. Yanick Sykes MD Apr 04, 2017 13:46
[2017-04-04] MEDS: cefTRIAXone INJ 2,000 MG in SODIUM CHLORIDE 0.9% INJ 100 ML IV SCH (16:47)
[2017-04-04] MEDS: PANTOPRAZOLE SOD 40 MG DELAYED RELEASE TAB PO SCH (21:01)
[2017-04-04] MEDS: LACTULOSE SYRUP 20 GM/30 ML CUP PO PRN (21:02)
--- NOTE | 2017-04-04 21:21 | MB ---
cc: CARMEN BACK M.D. DATE OF CONSULTATION 04/04/2017 REASON FOR CONSULTATION Low back pain, request for spinal stimulator removal. HISTORY OF PRESENT ILLNESS A 61-year-old obese gentleman with a chronic history of low back pain. He relates that he had a spinal stimulator placed in [place] 6 years ago. The stimulator was working up until the last couple of months when he could not recharge it or stimulate it externally. He relates the stimulator was working, it would only function when he was laying down and stimulated. It did not work when he was ambulating or sitting up. He has chronic low back pain. He relates that they cannot sit or walk for more than 30 minutes. He is also on chronic narcotic pain medications and relates he has been taking these for the last 6-8 years and obviously has developed tolerance. He relates that he saw Dr. Lobo [facility] spine surgeon in the clinic and she scheduled a CT myelogram which was done at [facility] on 03/22/2017. He subsequently saw her in the office and was informed that there was not anything from spinal surgical standpoint that could be undertaken. He relates that after the myelogram he developed severe low back pain which was not his typical back pain and worse than before with muscle spasms. He also had a low grade fever with temperature spikes as high as 102.1 a week ago over the last 48 hours he has been afebrile. He was on vancomycin and then switched to ceftriaxone and followed by infectious disease. His white counts are normal and all his cultures have been negative including blood cultures and lumbar tap with CSF cultures. A Plain CT scan of the lumbar spine is also obtained from 03/29/2017 and it reveals some intrathecal gas bubbles around the L4-L5 level which is not atypical after a spinal tap or myelogram but no obvious abscess is identified. The spinal stimulator was placed in the left flank area with leads extending intrathecally in the epidural space at T11-12 level superiorly up to at least the T10 level. He has been seen by the orthopedic spine surgeon while in the hospital and was informed that he should follow up with his pain specialist to have this removed as this was not urgent and likely not infected. He relates that he has moved down to [place] and cannot follow up with his pain specialist who placed the stimulator in [place]. Neurosurgery consultation has been requested to remove the stimulator. For some reason infectious disease physicians feel that there is an infection but medications not working either. He relates that he gets severe back spasms when he moves his legs with flexion at the hip or sides but he does not have any tenderness to palpation on the stimulators battery site or midline of the spine to palpation. PAST MEDICAL HISTORY 1. Chronic low back pain status post spinal epidural stimulator placement 6 years ago in [place]. 2. Hypertension. 3. Morbid obesity. 4. Renal calculus status post lithotripsy. MEDICATIONS PRIOR TO ADMISSION 1. Oxycodone extended release 20 milligrams q.12h. 2. Percocet 10/325 one q.6h. 3. Tizanidine 4 milligrams twice a day. 4. Trazodone 250 milligrams q.h.s. 5. Lorazepam 1 milligram q.8h. ALLERGIES NO KNOWN DRUG ALLERGIES. SOCIAL HISTORY He is . He is a former smoker. Drinks alcohol on occasional basis. LABORATORY FINDINGS White blood cell count 8.0, hemoglobin 9.5, platelet count 281. Sodium 140, potassium 3.6, BUN 12, creatinine 0.57, glucose 99. PT 11.7, INR 1.2. Urinalysis is negative. CSF cultures are negative. Blood cultures are negative. Urine cultures are negative. A sedimentation rate of 43 on 04/01/2017. REVIEW OF SYSTEMS Pertinent positives as mentioned in the history present illness, otherwise negative review systems. FAMILY HISTORY Noncontributory. PHYSICAL EXAMINATION VITAL SIGNS: Temperature 96.4, pulse is 59, respiratory rate 16, blood pressure 109/63, oxygen saturation 95% on room air. HEAD: Normocephalic, atraumatic. NECK: Supple. CHEST: Clear bilaterally. HEART: Regular rate rhythm, normal S1-S2. ABDOMEN: Soft, nontender. He is obese. No hepatosplenomegaly can be palpated. EXTREMITIES: No cyanosis or edema or deformity. SKIN: No obvious rash noted or any skin breakdown. GENERAL: This is an obese gentleman laying in bed. Complains of back spasms with movement in his legs proximally or turning. NEUROLOGIC: He is awake, alert. Cranial nerves are grossly intact. Motor strength in the upper extremities 5/5, in the lower extremity distally is 05/05. Proximally there is some give-away weakness because of pain with movement. Denies any incontinence voiding. Light touch sensation is intact. Negative Babinski. IMPRESSION 1. Chronic low back pain without any significant spinal stenosis based on the CT myelogram report although we do not have the films available for review since they were done at [facility] and attempts to obtain them have not been successful. The patient's spine surgeon apparently has reviewed them and signed off. The spinal stimulator obviously is not working at this point and was not providing adequate pain control even when it was working and the patient wants this removed so he can have a newer stimulator placed more advanced features. 2. History of worsening back pain after myelogram with fevers. The fevers have resolved with antibiotic treatment, although the back pain he states is persistent although slightly improved with pain medications. No clear-cut indication for infection at this point. PLAN I have discussed findings with the patient and either removal of the spinal stimulator while he is in the hospital or electively by a pain specialist. He wants to proceed with removal while he is in the hospital so he can facilitate further imaging with MRI scan if needed or subsequent placement of a newer spinal stimulator. He relates to me that he would like to get off his chronic narcotic pain medications also. I also discussed weight loss and participation with physical therapy for lumbar spinal stabilization and core muscle strength and exercises on a regular basis. Accordingly we will see if we can schedule removal of this spinal stimulator in the next day or two. He understands that given that this has been in place for over 6 years there is a possibility of epidural fibrosis and scar tissue formation which may require a laminectomy at the T11-T12 level for removal of along the stimulator / battery in the left flank area. The risks and benefit involved were discussed and he understands and requests that we proceed. MD ANSHUL Taylor/SOLE /4:26 PM /8:42 PM
[2017-04-05] VITALS (9 sets, daily range): BP systolic 105–160; BP diastolic 56–74; PULSE 56–84; RESP 15–20; TEMP 97.3–98.6; O2SAT 91–98
[2017-04-05] MEDS: ACETAMINOPHEN/HYDROcodone 325 MG/10 MG TAB PO PRN ×5 (02:00→21:45)
[2017-04-05] MEDS ORDERED: POVIDONE IODINE 5% (ANTISEPSIS KIT) 4 APPLICATIONS EACH NARE PRN (02:45)
[2017-04-05] MEDS ORDERED: SODIUM CHLORID 0.9% 500 ML IV PRN (02:45)
[2017-04-05] MEDS ORDERED: LACTATED RINGER'S 1000 ML IV PRN (02:45)
[2017-04-05] MEDS ORDERED: CHLORHEXIDINE GLUCONATE 2 % 1 PACK (2 CLOTHS) TOPICAL PRN (02:45)
[2017-04-05] MEDS: SUCRALFATE 1 GM TAB PO SCH ×2 (06:19→17:12)
[2017-04-05 06:29] LABS: HEMATOCRIT 24.9 % (39.0-51.0); HEMOGLOBIN 8.7 GM/DL (13.0-17.0); MEAN CELL VOLUME 91.2 FL (80.0-100.0); MEAN CORPUSCULAR HEMOGLOBIN 31.9 PG (27.0-34.0); MEAN PLATELET VOLUME 7.7 FL (7.0-11.0); PLATELET COUNT 305 TH/MM3 (150-450); RED BLOOD COUNT 2.73 MIL/MM3 (4.50-5.90); RED CELL DISTRIBUTION WIDTH 13.9 % (11.6-17.2); WHITE BLOOD COUNT 9.6 TH/MM3 (4.0-11.0)
[2017-04-05 06:30] LABS: AUTOMATED NEUTROPHIL # 6.6 TH/MM3 (1.8-7.7); BASOPHIL % 0.2 % (0.0-2.0); EOSINOPHIL # 0.2 TH/MM3 (0-0.4); EOSINOPHIL % 2.3 % (0.0-4.0); LYMPH % 21.5 % (9.0-44.0); LYMPHOCYTE # 2.1 TH/MM3 (1.0-4.8); MONO % 7.3 % (0.0-8.0); MONOCYTE # 0.7 TH/MM3 (0-0.9); NEUT % 68.7 % (16.0-70.0)
[2017-04-05] MEDS: SODIUM CHLORIDE 0.9% FLUSH 10 ML FLUSH IV FLUSH SCH ×2 (09:00→20:28)
[2017-04-05] MEDS: DOCUSATE SODIUM 50 MG/SENNA 8.6 MG TAB PO SCH ×2 (09:07→20:26)
[2017-04-05] MEDS: PANTOPRAZOLE SOD 40 MG DELAYED RELEASE TAB PO SCH ×2 (09:07→20:26)
[2017-04-05] MEDS: oxyCODONE HCL 20 MG CONTROLLED RELEASE TAB PO SCH ×2 (09:07→20:26)
[2017-04-05] MEDS ORDERED: LACTATED RINGER'S 1000 ML INJ 1,000 ML IV ONE (12:00)
[2017-04-05] MEDS ORDERED: ROCURONIUM INJ 50 MG/5 ML SYRINGE IV PUSH ONE (12:00)
[2017-04-05] MEDS ORDERED: ONDANSETRON HCL 4 MG/2 ML VIAL IV PUSH ONE (12:00)
[2017-04-05] MEDS ORDERED: PHENYLEPH/NS 1000 MCG/10 ML SYR IV ONE (12:00)
[2017-04-05] MEDS ORDERED: LIDOCAINE HCL 1% PF 5 ML SYRINGE OTHER ONE (12:00)
[2017-04-05] MEDS ORDERED: DEXAMETHASONE SOD PHOS 4 MG/ML VIAL IV ONE (12:00)
[2017-04-05] MEDS ORDERED: ACETAMINOPHEN 1000 MG/100 ML 100 ML IV ONE (12:26)
[2017-04-05] MEDS ORDERED: VANCOMYCIN HCL 1000 MG VIAL ONE (12:44)
[2017-04-05] MEDS ORDERED: GELFOAM SIZE 100 ONE (12:47)
[2017-04-05] MEDS ORDERED: ceFAZolin INJ 1,000 MG VIAL ONE (13:28)
--- NOTE | 2017-04-05 14:06 | PD.OP ---
Operative Report Date of Surgery: Apr 05, 2017 Preoperative Diagnosis: Nonfunctioning spinal epidural stimulator; rule out infection Postoperative Diagnosis: Same Procedure: Removal of thoracic epidural spinal stimulator leads and left flank stimulator/ battery pack Anesthesia: Gen. endotracheal by Ronnie wheeler Surgeon: Naresh Mckeon M.D. Crystal Cutter(s): Ashley Torres Operation and Findings: Following administration of general endotracheal anesthesia patient had sequential compression devices progress along with Lee catheter. He was then turned on a prone position on Herman frame and Victor Hugo table and all pressure points adequately padded. The posterior thoracic and lumbar area along the right flank area overlying the stimulator was shaved and prepped with ChloraPrep and sterile drape with Ioban along the usual sterile draping. An incision was made overlying the previous site in the right paraspinal aspect over the stimulator battery after infiltrating the skin with 0.5% Marcaine with epinephrine solution and the underlying stimulator was identified under the subcutaneous layer with some serosanguineous fluid surrounding the cavity but no obvious infection or pus was evident. Another incision in the lower thoracic spine overlying the placement of the epidural leads was then made after infiltrating the skin with 0.5% Marcaine and epinephrine solution. To lead to wires were noted to enter into the spinal canal in between the spinous processes. These leads were pulled out more intact. Subsequently the leads were cut at the subcutaneous level and the the other and connected to the battery was pulled out for complete removal of the stimulator which was confirmed with the fluoroscopy. The area was then thoroughly irrigated with the antibiotic solution. Cultures were sent out although the Gram stain was negative. Incision sites were approximated using 3-0 Vicryl interrupted sutures and final skin closure was with Mastisol and Steri-Strips. Sterile dressing was then applied and the patient turned supine position and extubated and taken to recovery room. There were no intraoperative complications and all sponge and needle count was correct at the end of the procedure. Estimated blood loss less than 10 cc. Naresh Mckeon MD Apr 05, 2017 14:06
[2017-04-05] MEDS ORDERED: DO NOT ADM ANY ANTICOAGULANT DRUGS PRN (14:20)
[2017-04-05] MEDS ORDERED: *MEPERIDINE 25 MG INJ VIAL PERIprocedural Use ONLY ONE (14:20)
[2017-04-05] MEDS ORDERED: SUGAMMADEX SODIUM 200 MG/2 ML VIAL IV PUSH ONE ×2 (14:25→14:28)
[2017-04-05] MEDS ORDERED: MIDAZOLAM HCL 2 MG/2 ML VIAL ONE (14:28)
--- NOTE | 2017-04-05 14:48 | HHI.PR ---
Subjective Remarks Follow-up for fever unknown origin Patient seen in the PACU after he had his pump removed. He was sedated but had no complaints. Vitals were stable. Discussed case a PACU nurse who stated that she had no concerns. Objective Vitals Vital Signs Date Time Temp Pulse Resp B/P (MAP) Pulse Ox O2 Delivery O2 Flow Rate FiO2 04/05/17 14:30 73 13 128/58 (81) 98 Nasal Cannula 2 04/05/17 14:24 99.1 82 15 167/72 (103) 97 Nasal Cannula 2 04/05/17 08:00 97.5 59 20 107/56 (73) 95 04/05/17 04:00 97.9 78 15 115/60 (78) 91 04/05/17 00:00 97.3 66 15 105/59 (74) 97 04/04/17 20:00 100.0 93 16 110/69 (83) 91 04/04/17 15:58 96.4 59 16 109/63 (78) 95 I/O 04/04/17 04/04/17 04/04/17 04/05/17 04/05/17 04/05/17 07:00 15:00 23:00 07:00 15:00 23:00 Intake Total 740 ml 1200 ml 800 ml 0 ml Output Total 200 ml 100 ml 700 ml Balance 740 ml 1000 ml -100 ml 100 ml 0 ml Intake Oral 240 ml 1200 ml 800 ml IV Total 500 ml 0 ml Output Urine Total 200 ml 100 ml 700 ml # Voids 0 # Bowel Movements 0 0 Result Diagram: 04/05/17 0530 04/04/17 0501 Imaging Last Impressions Lumbar Spine CT 03/29/17 0000 Signed Impressions: Service Date/Time: Wednesday, March 29, 2017 17:26 - CONCLUSION: 1. Tiny bubbles of gas within the central canal at L4 and L5, appearing to be intrathecal and presumably iatrogenic. No abscess is demonstrated. 2. Lower lumbar degenerative changes as above. 3. Spinal stimulator leads are partly included on the study. No evidence an associated acute complication. 4. No fracture or subluxation. Daron Christianson MD Lumbar Puncture Fluoroscopy 03/28/17 0000 Signed Impressions: Service Date/Time: Tuesday, March 28, 2017 15:14 - CONCLUSION: Uncomplicated fluoroscopically guided lumbar puncture. Calixto Caldwell MD Chest X-Ray 03/26/17 1657 Signed Impressions: Service Date/Time: Sunday, March 26, 2017 17:06 - CONCLUSION: Cardiomegaly. No acute cardiopulmonary disease. Saulo Abdi MD Head CT 03/26/17 0000 Signed Impressions: Service Date/Time: Sunday, March 26, 2017 20:18 - CONCLUSION: No acute disease. No evidence of acute infarct, hemorrhage, mass or edema. Arnoldo Caba MD Abdomen/Pelvis CT 03/26/17 0000 Signed Impressions: Service Date/Time: Sunday, March 26, 2017 20:23 - CONCLUSION: 1. Multiple bilateral nonobstructing renal calculi. No evidence of hydronephrosis. 2. Hepatic steatosis. 3. Dorsal column stimulator. 4. No acute process. Arnoldo Caba MD Objective Remarks GENERAL: in NAD and waking up from anesthesia. CARDIOVASCULAR: Regular rate and rhythm without murmurs, gallops, or rubs. RESPIRATORY: Breath sounds equal bilaterally. No accessory muscle use. GASTROINTESTINAL: Abdomen soft, non-tender, nondistended. Procedures 03/28- LP 04/01- EGD- with duodenal ulcer- bleeding vessel clipped and cautery performed Medications and IVs Current Medications Acetaminophen (Tylenol) 650 mg ONCE ONCE PO Last administered on 03/26/17at 17: 56; Start 03/26/17 at 17:00; Stop 03/26/17 at 17:02; Status DC Ondansetron HCl (Zofran Inj) 4 mg ONCE ONCE IV PUSH Last administered on at 17:56; Start 03/26/17 at 17:00; Stop 03/26/17 at 17:02; Status DC Sodium Chloride 1,000 ml @ 1,000 mls/hr Q1H ONCE IV Last administered on at 17:55; Start 03/26/17 at 16:57; Stop 03/26/17 at 17:56; Status DC Sodium Chloride 1,000 ml @ 1,000 mls/hr Q1H ONCE IV Last administered on at 17:57; Start 03/26/17 at 16:57; Stop 03/26/17 at 17:56; Status DC Vancomycin HCl 1000 mg/Sodium Chloride 250 ml @ 250 mls/hr ONCE STAT IV Last administered on 03/26/17at 19:01; Start 03/26/17 at 16:57; Stop 03/26/17 at 17:56; Status DC Piperacillin Sod/ Tazobactam Sod 100 ml @ 200 mls/hr ONCE STAT IV Last administered on 03/26/17at 17:55; Start 03/26/17 at 16:57; Stop 03/26/17 at 17:26; Status DC Morphine Sulfate (Morphine Inj) 4 mg ONCE ONCE IV PUSH ; Start 03/26/17 at 18:15 ; Stop 03/26/17 at 18:36; Status DC Hydromorphone HCl (Dilaudid Pf Inj) 1 mg ONCE ONCE IV PUSH Last administered on 03/26/17at 19:02; Start 03/26/17 at 18:45; Stop 03/26/17 at 18:46; Status DC Sodium Chloride 1,000 ml @ 999 mls/hr BOLUS ONCE IV Last administered on at 20:12; Start 03/26/17 at 20:15; Stop 03/26/17 at 21:15; Status DC Hydromorphone HCl (Dilaudid Pf Inj) 1 mg ONCE ONCE IV PUSH Last administered on 03/26/17at 20:12; Start 03/26/17 at 20:15; Stop 03/26/17 at 20:16; Status DC Iohexol (Omnipaque 350 Inj) 95 ml STK-MED ONCE IVCONTRAST Last administered on 03/26/17at 20:39; Start 03/26/17 at 20:39; Stop 03/26/17 at 20:40; Status DC Pharmacy Profile Note 0 ml @ 0 mls/hr UNSCH OTHER ; Start 03/26/17 at 22:45; Stop 04/04/17 at 13:40; Status DC Cefepime HCl 1000 mg/Sodium Chloride 100 ml @ 200 mls/hr Q12H IV Last administered on 03/27/17at 07:44; Start 03/27/17 at 09:00; Stop 03/27/17 at 17:39; Status DC Sodium Chloride 1,000 ml @ 100 mls/hr Q10H IV Last administered on 03/31/17at 11:27; Start 03/26/17 at 22:37; Stop 03/31/17 at 13:41; Status DC Sodium Chloride (NS Flush) 2 ml UNSCH PRN IV FLUSH FLUSH AFTER USING IV ACCESS ; Start 03/26/17 at 22:45 Sodium Chloride (NS Flush) 2 ml BID IV FLUSH Last administered on 04/05/17at 09: 00; Start 03/27/17 at 09:00 Ondansetron HCl (Zofran Inj) 4 mg Q6H PRN IVP NAUSEA OR VOMITING Last administered on 03/27/17at 22:55; Start 03/26/17 at 22:45 Acetaminophen (Tylenol) 650 mg Q6H PRN PO FEVER/PAIN SCALE 1 TO 2 Last administered on 03/30/17at 02:09; Start 03/26/17 at 22:45 Acetaminophen/ Hydrocodone Bitart (Phillips 5-325 Mg) 1 tab Q4H PRN PO PAIN SCALE 3 TO 5 Last administered on 04/01/17at 08:30; Start 03/26/17 at 22:45; Stop 04/01/17 at 08:56; Status DC Senna/Docusate Sodium (Fanny-Colace) 1 tab BID PO Last administered on at 09:07; Start 03/27/17 at 09:00 Magnesium Hydroxide (Milk Of Magnesia Liq) 30 ml Q12H PRN PO Mild constipation Last administered on 04/04/17at 10:36; Start 03/26/17 at 22:45 Sennosides (Senokot) 17.2 mg Q12H PRN PO Moderate constipation Last administered on 04/04/17at 21:00; Start 03/26/17 at 22:45 Bisacodyl (Dulcolax Supp) 10 mg DAILY PRN RECTAL SEVERE CONSITIPATION; Start at 22:45 Lactulose (Lactulose Liq) 30 ml DAILY PRN PO SEVERE CONSITIPATION Last administered on 04/04/17at 21:02; Start 03/26/17 at 22:45 Hydromorphone HCl (Dilaudid Pf Inj) 1 mg Q4H PRN IV PUSH PAIN 6-10 Last administered on 03/30/17at 12:39; Start 03/26/17 at 22:45; Stop 03/30/17 at 13:01 ; Status DC Vancomycin HCl 1000 mg/Sodium Chloride 250 ml @ 250 mls/hr Q12H IV Last administered on 03/28/17at 12:03; Start 03/26/17 at 23:00; Stop 03/28/17 at 13:11; Status DC Miscellaneous Information SPECIFIC LAB TO BE ALISSA... ONCE ONCE .XX ; Start at 22:45; Stop 03/27/17 at 22:46; Status DC Tizanidine HCl (Zanaflex) 4 mg BID PO Last administered on 03/29/17at 09:57; Start 03/27/17 at 01:00; Stop 03/29/17 at 11:42; Status DC Trazodone HCl (Desyrel) 250 mg HS PO Last administered on 04/04/17at 01:00; Start 03/27/17 at 01:00 Diazepam (Valium) 5 mg Q8H PRN PO MUSCLE SPASM Last administered on 04/03/17at 16:02; Start 03/27/17 at 01:00 Ceftriaxone Sodium 2000 mg/ Sodium Chloride 100 ml @ 200 mls/hr Q12H IV Last administered on 04/01/17at 17:12; Start 03/27/17 at 18:00; Stop 04/01/17 at 18:35 ; Status DC Vancomycin HCl 1600 mg/Sodium Chloride 516 ml @ 258 mls/hr Q18H IV Last administered on 03/29/17at 01:04; Start 03/29/17 at 00:00; Stop 03/29/17 at 13:57; Status DC Miscellaneous Information SPECIFIC LAB TO BE ALISSA... ONCE ONCE .XX Last administered on 03/31/17at 03:45; Start 03/31/17 at 03:45; Stop 03/31/17 at 03:46 ; Status DC Tizanidine HCl (Zanaflex) 8 mg Q8HR PO Last administered on 04/05/17at 06:19; Start 03/29/17 at 14:00 Vancomycin HCl 1500 mg/Sodium Chloride 515 ml @ 258 mls/hr Q12H IV Last administered on 03/31/17at 03:55; Start 03/29/17 at 16:00; Stop 03/31/17 at 12:00 ; Status DC Iohexol (Omnipaque 350 Inj) 100 ml STK-MED ONCE IVCONTRAST Last administered on 03/29/17at 17:29; Start 03/29/17 at 17:29; Stop 03/29/17 at 17:30; Status DC Oxycodone HCl (OxyCONTIN CR) 20 mg Q12HR PO Last administered on 03/31/17at 07: 33; Start 03/30/17 at 13:00; Stop 03/31/17 at 13:44; Status DC Hydromorphone HCl (Dilaudid Pf Inj) 2 mg Q4H PRN IV PUSH PAIN 7-10 Last administered on 04/01/17at 05:50; Start 03/30/17 at 13:00; Stop 04/01/17 at 08:42 ; Status DC Fentanyl (Duragesic 25 Mcg Patch.72 Hr) 1 patch ONCE ONCE T-DERMAL Last administered on 03/30/17at 14:36; Start 03/30/17 at 13:15; Stop 03/30/17 at 13:58 ; Status DC Miscellaneous Information 1 Q3D T-DERMAL Last administered on 04/02/17at 12:55; Start 03/30/17 at 13:15; Stop 04/02/17 at 13:17; Status DC Miscellaneous Information SPECIFIC LAB TO BE DRAWN:VANCOMY... ONCE ONCE .XX Last administered on 04/01/17at 22:45; Start 04/01/17 at 22:45; Stop 04/01/17 at 22:46; Status DC Vancomycin HCl 1500 mg/Sodium Chloride 515 ml @ 258 mls/hr Q12H IV Last administered on 04/04/17at 12:55; Start 03/31/17 at 23:00; Stop 04/04/17 at 13:40 ; Status DC Oxycodone HCl (OxyCONTIN CR) 40 mg Q12HR PO Last administered on 04/05/17at 09: 07; Start 03/31/17 at 21:00 Enoxaparin Sodium (Lovenox Inj) 40 mg Q24H SQ Last administered on 03/31/17at 14 :05; Start 03/31/17 at 14:00; Stop 04/01/17 at 08:55; Status DC Acetaminophen/ Hydrocodone Bitart (Phillips 5-325 Mg) 10 tab Q4H PRN PO PAIN SCALE 6 TO 10; Start 04/01/17 at 09:00; Stop 04/01/17 at 09:34; Status DC Pantoprazole Sodium (Protonix Inj) 40 mg Q24H IV PUSH Last administered on 04/01at 10:43; Start 04/01/17 at 09:30; Stop 04/01/17 at 17:08; Status DC Acetaminophen/ Hydrocodone Bitart (Phillips 5-325 Mg) 1 tab Q4H PRN PO PAIN SCALE 6 TO 10; Start 04/01/17 at 13:00; Stop 04/01/17 at 13:00; Status DC Acetaminophen/ Hydrocodone Bitart (Phillips 10-325 Mg) 1 tab Q4H PRN PO PAIN SCALE 6-10 Last administered on 04/05/17at 10:45; Start 04/01/17 at 11:30 Hydromorphone HCl (Dilaudid Pf Inj) 0.5 mg Q4H PRN IV PAIN SCALE 7 - 10 Last administered on 04/04/17at 07:06; Start 04/01/17 at 11:30 Lactated Ringer's 1,000 ml @ 30 mls/hr Q24H PRN IV SEE LABEL COMMENTS; Start at 14:30; Stop 04/04/17 at 14:29; Status DC Sodium Chloride 500 ml @ 30 mls/hr [id number] PRN IV SEE LABEL COMMENTS; Start 03/07 at 14:30; Stop 04/04/17 at 14:29; Status DC Metoprolol Tartrate (Lopressor) 25 mg LAST SAWYER PRN PO SEE LABEL COMMENTS; Start 04/01/17 at 14:30; Stop 04/04/17 at 14:29; Status DC Povidone Iodine (Betadine 5% Antisepsis Kit) 1 applic LAST SAWYER PRN EACH NARE SEE LABEL COMMENTS; Start 04/01/17 at 14:30; Stop 04/04/17 at 14:29; Status DC Chlorhexidine Gluconate (Chlorhexidine 2% Cloth) 3 pack LAST SAWYER PRN TOPICAL SEE LABEL COMMENTS; Start 04/01/17 at 14:30; Stop 04/04/17 at 14:29; Status DC Epinephrine HCl (Adrenalin (1:1000) Inj) 0.5 mg ONCE ONCE OTHER Last administered on 04/01/17at 16:16; Start 04/01/17 at 16:13; Stop 04/01/17 at 16:16 ; Status DC Pantoprazole Sodium (Protonix Inj) 40 mg Q12H IV PUSH Last administered on 04/03at 22:34; Start 04/01/17 at 23:00; Stop 04/04/17 at 09:11; Status DC Ceftriaxone Sodium 2000 mg/ Sodium Chloride 100 ml @ 200 mls/hr Q24H IV Last administered on 04/04/17at 16:47; Start 04/02/17 at 17:00 Sucralfate (Carafate) 1 gm BIDAC PO Last administered on 04/05/17at 06:19; Start 04/02/17 at 08:45 Sucralfate (Carafate) 1 gm BIDAC PO ; Start 04/02/17 at 08:45; Status UNV Miscellaneous Information SPECIFIC LAB TO BE ALISSA... ONCE ONCE .XX ; Start 04/04 at 10:45; Stop 04/04/17 at 10:46; Status DC Pantoprazole Sodium (Protonix) 40 mg Q12HR PO Last administered on 04/05/17at 09 :07; Start 04/04/17 at 21:00 Lactated Ringer's 1,000 ml @ 30 mls/hr Q24H PRN IV SEE LABEL COMMENTS; Start at 02:45; Stop 04/08/17 at 02:44 Sodium Chloride 500 ml @ 30 mls/hr [id number] PRN IV SEE LABEL COMMENTS; Start at 02:45; Stop 04/08/17 at 02:44 Povidone Iodine (Betadine 5% Antisepsis Kit) 1 applic LAST SAWYER PRN EACH NARE SEE LABEL COMMENTS; Start 04/05/17 at 02:45; Stop 04/08/17 at 02:44 Chlorhexidine Gluconate (Chlorhexidine 2% Cloth) 3 pack LAST SAWYER PRN TOPICAL SEE LABEL COMMENTS; Start 04/05/17 at 02:45; Stop 04/08/17 at 02:44 Dexamethasone Sodium Phosphate (Decadron Inj) 4 mg STK-MED ONCE IV ; Start 04/01 at 12:00; Stop 04/05/17 at 09:45; Status DC Ondansetron HCl (Zofran Inj) 4 mg STK-MED ONCE IV ; Start 04/01/17 at 12:00; Stop 04/05/17 at 09:45; Status DC Cefazolin Sodium (Ancef Inj) 1,000 mg STK-MED ONCE IV ; Start 04/01/17 at 12:00 ; Stop 04/05/17 at 09:45; Status DC Propofol (Diprivan 200 Mg/20 ml Inj) 600 mg STK-MED ONCE IV ; Start 04/01/17 at 12:00; Stop 04/05/17 at 09:45; Status DC Acetaminophen 100 ml @ As Directed STK-MED ONCE IV ; Start 04/05/17 at 12:26; Stop 04/05/17 at 12:27; Status DC Vancomycin HCl (Vancomycin Inj) 2,000 mg STK-MED ONCE .ROUTE ; Start 04/05/17 at 12:44; Stop 04/05/17 at 12:45; Status DC Gelatin (Gelfoam 100 Top) 1 foam STK-MED ONCE .ROUTE ; Start 04/05/17 at 12:47; Stop 04/05/17 at 12:48; Status DC Cefazolin Sodium (Ancef Inj) 1,000 mg STK-MED ONCE .ROUTE ; Start 04/05/17 at 13 :28; Stop 04/05/17 at 13:29; Status DC Meperidine HCl (*DEMEROL INJ PERIprocedural ONLY) 25 mg STK-MED ONCE .ROUTE Last administered on 04/05/17at 14:24; Start 04/05/17 at 14:20; Stop 04/05/17 at 14:21; Status DC Sugammadex Sodium (Bridion Inj) 200 mg STK-MED ONCE IV PUSH ; Start 04/05/17 at 14:25; Stop 04/05/17 at 14:26; Status DC Midazolam HCl (Versed Inj) 2 mg STK-MED ONCE .ROUTE ; Start 04/05/17 at 14:28; Stop 04/05/17 at 14:29; Status DC Fentanyl Citrate (fentaNYL INJ) 200 mcg STK-MED ONCE .ROUTE ; Start 04/05/17 at 14:28; Stop 04/05/17 at 14:29; Status DC Sugammadex Sodium (Bridion Inj) 200 mg STK-MED ONCE IV PUSH ; Start 04/05/17 at 14:28; Stop 04/05/17 at 14:29; Status DC Miscellaneous Information ALL NURSING DEPARTME... UNSCH PRN .XX SEE LABEL COMMENTS; Start 04/05/17 at 14:20; Stop 04/06/17 at 14:19 Date of Insertion: Mar 28, 2017 Date of Removal: Apr 02, 2017 A/P Problem List: (1) SIRS (systemic inflammatory response syndrome) ICD Code: R65.10 - Systemic inflammatory response syndrome (SIRS) of non- infectious origin without acute organ dysfunction (2) Intractable back pain ICD Code: M54.9 - Dorsalgia, unspecified (3) Hypotension ICD Code: I95.9 - Hypotension, unspecified (4) Renal insufficiency ICD Code: N28.9 - Disorder of kidney and ureter, unspecified Assessment and Plan 61 years old male FUO/SIRS: Source unclear with history of recent s/p Myelogram for severe back pain r/o disciitis/arachnoiditis- T down for several days- S/P LP 03/28 Blood Cultures negative Spinal fluid studies cultures negative. AFB studies- negative Status post Vancomycin which was discontinue on 04/04. Now on Rocephin per Dr. Sykes CXR w/ no acute findings, U/a negative. ID ff- will defer to service regarding timing of PICC Neurosurgery consulted to evaluate for removal of spine stimulator in which patient had his spine stimulator removed today. Per infectious disease once spine stimulator removed will need to do another MRI. Intractable Back Pain: h/o chronic back pain, follows w/ Dr. Lobo, s/p Spinal Stimulator presented with severe exacerbation. - IMPROVED on current regimen. adjust as needed Valium prn for muscle spasm. no fecal or urinary incontinence. CT - no abscess current pain regimen working on Oxycontin 40 mg bid and Hydrocodone 10 q 4 prn, IV Dilaudid prn for severe pain fentanyl patch scheduled Spine stimulator removed so hopefully pain will improve. Acute Renal Insufficiency: Creatinine 1.44,- creatinine improved. heplock and monitor, villar out 04/02- voiding well UGIB secondary to duodenal ulcer s/p EGD with cautery and clipping of bleeding vessel 04/01 PPI bid- po Carafate 1 gm bid FF CBC- transufse if less than 8 Repat EGD as OP in 3 weeks- with Dr. Goff type and x match 2 units standby no Lovenox with recent GIB advance diet PT consult- - appreciated Hypotension: Transient. Improved, DVT Prophylaxis: SCD/Teds. - no chemical prophylaxis with UGIB Kasey Mcfarland MD Apr 05, 2017 14:48
[2017-04-05] MEDS ORDERED: *morphine SULFATE 4 MG/ML PERIprocedure ONLY ONE (15:01)
--- NOTE | 2017-04-05 15:09 | RADRPT ---
EXAM DATE/TIME: 04/05/2017 13:32 [facility] COMPARISON: FLUOROSCOPY PORTABLE UP TO 1HR, April 05, 2017, 0:00. INDICATIONS : Thoracic spine epidural spine lead removal. MEDICAL HISTORY : None. SURGICAL HISTORY : spinal stimulator. Leads epidural T11/T12 ENCOUNTER: Initial ACUITY: 1 day PAIN SCORE: Non-responsive. LOCATION: Thoracic spine. FINDINGS: AP films pre-and post procedure are provided. The patient's spinal stimulator leads have been removed . No retained lead fragments are seen. CONCLUSION: 1. No retained lead fragments identified. Mikel Cunningham MD on April 05, 2017 at 15:05 Board Certified Radiologist. This report was verified electronically.
--- NOTE | 2017-04-05 16:21 | HHI.IDPN ---
Note Infectious Disease Note Patient had spinal stimulator removed today. Low grade fever last night. No bowel movement in 3 days. Still has pain in the back. Wound culture pending. PAST MEDICAL HISTORY 1. Chronic back pain. 2. Hypertension. 3. Lithotripsy. 4. Spinal stimulator. ALLERGIES NO KNOWN DRUG ALLERGIES. MEDICATIONS Ceftriaxone. OBJECTIVE: Vital Signs Laboratory Tests Test 04/05/17 05:30 White Blood Count 9.6 TH/MM3 Red Blood Count 2.73 MIL/MM3 Hemoglobin 8.7 GM/DL Hematocrit 24.9 % Mean Corpuscular Volume 91.2 FL Mean Corpuscular Hemoglobin 31.9 PG Mean Corpuscular Hemoglobin Concent 35.0 % Red Cell Distribution Width 13.9 % Platelet Count 305 TH/MM3 Mean Platelet Volume 7.7 FL Neutrophils (%) (Auto) 68.7 % Lymphocytes (%) (Auto) 21.5 % Monocytes (%) (Auto) 7.3 % Eosinophils (%) (Auto) 2.3 % Basophils (%) (Auto) 0.2 % Neutrophils # (Auto) 6.6 TH/MM3 Lymphocytes # (Auto) 2.1 TH/MM3 Monocytes # (Auto) 0.7 TH/MM3 Eosinophils # (Auto) 0.2 TH/MM3 Basophils # (Auto) 0.0 TH/MM3 CBC Comment DIFF FINAL Differential Comment Hematology Comments Laboratory Tests Test 04/04/17 05:01 Creatinine 0.77 MG/DL Estimat Glomerular Filtration Rate 102 ML/MIN Microbiology Date/Time Source Procedure Growth Status 04/05/17 13:39 Wound Other Fungal Smear Pending Received 04/05/17 13:39 Wound Other Fungal Culture Pending Received 04/05/17 13:39 Wound Other Acid Fast Stain Pending Received 04/05/17 13:39 Wound Other Mycobacterial Culture Pending Received 04/05/17 13:39 Wound Other Gram Stain Pending Received 04/05/17 13:39 Wound Other Wound Culture Pending Received 04/05/17 13:39 Wound Other Fungal Smear Pending Received 04/05/17 13:39 Wound Other Fungal Culture Pending Received 04/05/17 13:39 Wound Other Acid Fast Stain Pending Received 04/05/17 13:39 Wound Other Mycobacterial Culture Pending Received 04/05/17 13:39 Wound Other Gram Stain Pending Received 04/05/17 13:39 Wound Other Wound Culture Pending Received 04/05/17 13:39 Wound Other Fungal Smear Pending Received 04/05/17 13:39 Wound Other Fungal Culture Pending Received 04/05/17 13:39 Wound Other Acid Fast Stain Pending Received 04/05/17 13:39 Wound Other Mycobacterial Culture Pending Received 04/05/17 13:39 Wound Other Gram Stain Pending Received 04/05/17 13:39 Wound Other Wound Culture Pending Received IMAGING: Lumbar Spine CT 03/29/17 0000 Signed Impressions: Service Date/Time: Wednesday, March 29, 2017 17:26 - CONCLUSION: 1. Tiny bubbles of gas within the central canal at L4 and L5, appearing to be intrathecal and presumably iatrogenic. No abscess is demonstrated. 2. Lower lumbar degenerative changes as above. 3. Spinal stimulator leads are partly included on the study. No evidence an associated acute complication. 4. No fracture or subluxation. Daron Christianson MD Lumbar Puncture Fluoroscopy 03/28/17 0000 Signed Impressions: Service Date/Time: Tuesday, March 28, 2017 15:14 - CONCLUSION: Uncomplicated fluoroscopically guided lumbar puncture. Calixto Caldwell MD Chest X-Ray 03/26/17 1657 Signed Impressions: Service Date/Time: Sunday, March 26, 2017 17:06 - CONCLUSION: Cardiomegaly. No acute cardiopulmonary disease. Saulo Abdi MD Head CT 03/26/17 0000 Signed Impressions: Service Date/Time: Sunday, March 26, 2017 20:18 - CONCLUSION: No acute disease. No evidence of acute infarct, hemorrhage, mass or edema. Arnoldo Caba MD Abdomen/Pelvis CT 03/26/17 0000 Signed Impressions: Service Date/Time: Sunday, March 26, 2017 20:23 - CONCLUSION: 1. Multiple bilateral nonobstructing renal calculi. No evidence of hydronephrosis. 2. Hepatic steatosis. 3. Dorsal column stimulator. 4. No acute process. Arnoldo Caba MD PHYSICAL EXAMINATION GENERAL: no acute distress. HEENT: No icterus. NECK: Supple without swelling or adenopathy. LUNGS: Clear breath sounds. HEART: Regular S1-S2. No murmurs, rub or gallops. ABDOMEN: Bowel sounds present but decreased, soft, nontender. BACK: No tenderness on palpation of the lower back. EXTREMITIES: No clubbing, cyanosis or edema. SKIN: No visible rash. NEUROLOGIC: No gross focal findings. Weakness in the lower extremities. PSYCHIATRIC: Calm and cooperative. IMPRESSION 1. Fever of unknown origin. Unclear etiology. Patient with negative chest x-ray and blood cultures are also unremarkable. He is status post myelogram and fever could be related to that procedure. He had intractable back pain and it could be related to back issues from before, but he states that the pain is of a different characteristic and it is not clear whether it may be related to infection in the lower back. The white blood cell count is normal, however. 2. No evidence of meningitis on CSF. 3. Probable infection related to the TENS unit. Post removal of the spinal stimulator. RECOMMENDATIONS 1. Continue Ceftriaxone. 2. Follow the culture of the spinal stimulator leads until final. 3. May need to get MRI of the back if pain and fever does not subside if wound culture is negative. 4. Monitor temperature. Yanick Sykes MD Apr 05, 2017 16:21
[2017-04-05] MEDS: cefTRIAXone INJ 2,000 MG in SODIUM CHLORIDE 0.9% INJ 100 ML IV SCH (17:12)
[2017-04-05] MEDS: HYDROmorphone HCL PF 2 MG/ML VIAL IV PRN (17:19)
[2017-04-05] MEDS: DIAZEPAM 5 MG TAB PO PRN (20:26)
[2017-04-05] MEDS: SENNOSIDES 8.6 MG TAB PO PRN (20:27)
[2017-04-05] MEDS: traZODone HCL 100 MG TAB PO SCH (20:27)
[2017-04-06] VITALS (10 sets, daily range): BP systolic 92–163; BP diastolic 52–74; PULSE 54–101; RESP 17–18; TEMP 96.6–98.9; O2SAT 93–98
[2017-04-06] MEDS: ACETAMINOPHEN/HYDROcodone 325 MG/10 MG TAB PO PRN ×5 (03:54→22:07)
[2017-04-06] MEDS: SUCRALFATE 1 GM TAB PO SCH ×3 (04:38→16:11)
[2017-04-06] MEDS: DIAZEPAM 5 MG TAB PO PRN ×2 (04:38→20:01)
[2017-04-06 07:30] LABS: HEMATOCRIT 23.7 % (39.0-51.0); MEAN CELL VOLUME 91.6 FL (80.0-100.0); MEAN CORPUSCULAR HGB CONC 33.9 % (32.0-36.0); MEAN PLATELET VOLUME 7.1 FL (7.0-11.0); PLATELET COUNT 343 TH/MM3 (150-450); RED BLOOD COUNT 2.59 MIL/MM3 (4.50-5.90); RED CELL DISTRIBUTION WIDTH 13.3 % (11.6-17.2); WHITE BLOOD COUNT 11.5 TH/MM3 (4.0-11.0)
[2017-04-06 07:49] LABS: BICARBONATE 30.9 MEQ/L (21.0-32.0); CALCIUM 7.9 MG/DL (8.5-10.1); CREATININE 0.58 MG/DL (0.60-1.30)
[2017-04-06] MEDS: oxyCODONE HCL 20 MG CONTROLLED RELEASE TAB PO SCH ×2 (08:37→20:02)
[2017-04-06] MEDS: PANTOPRAZOLE SOD 40 MG DELAYED RELEASE TAB PO SCH ×2 (08:38→20:02)
[2017-04-06] MEDS: SODIUM CHLORIDE 0.9% FLUSH 10 ML FLUSH IV FLUSH SCH ×2 (09:00→20:03)
[2017-04-06] MEDS: DOCUSATE SODIUM 50 MG/SENNA 8.6 MG TAB PO SCH ×2 (09:00→20:03)
--- NOTE | 2017-04-06 09:04 | HHI.PR ---
Subjective Remarks Follow-up for removal of a baclofen pump and fever unknown origin Patient has been afebrile. He stated that he feels a lot better. Prior from procedure pain was 12 at 10 now pain is 5 out of 5. Patient stated that he is ambulating a few steps. His nurse is at the bedside she stated that since the surgery pain has improved drastically. He has no other complaints. Objective Vitals Vital Signs Date Time Temp Pulse Resp B/P (MAP) Pulse Ox O2 Delivery O2 Flow Rate FiO2 04/06/17 04:44 98 Room Air 04/06/17 04:15 66 04/06/17 03:45 97.7 74 17 163/74 (103) 98 04/06/17 00:09 54 04/05/17 23:55 97.7 56 17 123/63 (83) 98 04/05/17 20:44 82 04/05/17 20:25 97 Nasal Cannula 2.00 04/05/17 20:24 96 Nasal Cannula 2.00 04/05/17 19:40 98.6 84 19 160/74 (102) 97 04/05/17 16:00 97.6 78 18 138/65 (89) 96 04/05/17 15:15 98.7 70 16 143/63 (89) 97 Nasal Cannula 2 04/05/17 15:00 73 14 140/64 (89) 97 Nasal Cannula 2 04/05/17 14:45 75 15 126/61 (82) 97 Nasal Cannula 2 04/05/17 14:30 73 13 128/58 (81) 98 Nasal Cannula 2 04/05/17 14:24 99.1 82 15 167/72 (103) 97 Nasal Cannula 2 I/O 04/05/17 04/05/17 04/05/17 04/06/17 04/06/17 04/06/17 06:59 14:59 22:59 06:59 14:59 22:59 Intake Total 800 ml 1000 ml 480 ml 960 ml Output Total 700 ml 810 ml 900 ml 1300 ml Balance 100 ml 190 ml -420 ml -340 ml Intake Oral 800 ml 480 ml 960 ml IV Total 1000 ml Output Urine Total 700 ml 800 ml 900 ml 1300 ml Estimated Blood Loss 10 ml # Bowel Movements 0 1 Result Diagram: 04/06/17 0700 04/06/17 0700 Objective Remarks GENERAL: in NAD CARDIOVASCULAR: Regular rate and rhythm without murmurs, gallops, or rubs. RESPIRATORY: Breath sounds equal bilaterally. No accessory muscle use. GASTROINTESTINAL: Abdomen soft, non-tender, nondistended. LE sensation intact. Procedures 03/28- LP 04/01- EGD- with duodenal ulcer- bleeding vessel clipped and cautery performed Medications and IVs Current Medications Acetaminophen (Tylenol) 650 mg ONCE ONCE PO Last administered on 03/26/17 17: 56; Start 03/26/17 at 17:00; Stop 03/26/17 at 17:02; Status DC Ondansetron HCl (Zofran Inj) 4 mg ONCE ONCE IV PUSH Last administered on at 17:56; Start 03/26/17 at 17:00; Stop 03/26/17 at 17:02; Status DC Sodium Chloride 1,000 ml @ 1,000 mls/hr Q1H ONCE IV Last administered on at 17:55; Start 03/26/17 at 16:57; Stop 03/26/17 at 17:56; Status DC Sodium Chloride 1,000 ml @ 1,000 mls/hr Q1H ONCE IV Last administered on at 17:57; Start 03/26/17 at 16:57; Stop 03/26/17 at 17:56; Status DC Vancomycin HCl 1000 mg/Sodium Chloride 250 ml @ 250 mls/hr ONCE STAT IV Last administered on 03/26/17at 19:01; Start 03/26/17 at 16:57; Stop 03/26/17 at 17:56; Status DC Piperacillin Sod/ Tazobactam Sod 100 ml @ 200 mls/hr ONCE STAT IV Last administered on 03/26/17at 17:55; Start 03/26/17 at 16:57; Stop 03/26/17 at 17:26; Status DC Morphine Sulfate (Morphine Inj) 4 mg ONCE ONCE IV PUSH ; Start 03/26/17 at 18:15 ; Stop 03/26/17 at 18:36; Status DC Hydromorphone HCl (Dilaudid Pf Inj) 1 mg ONCE ONCE IV PUSH Last administered on 03/26/17at 19:02; Start 03/26/17 at 18:45; Stop 03/26/17 at 18:46; Status DC Sodium Chloride 1,000 ml @ 999 mls/hr BOLUS ONCE IV Last administered on at 20:12; Start 03/26/17 at 20:15; Stop 03/26/17 at 21:15; Status DC Hydromorphone HCl (Dilaudid Pf Inj) 1 mg ONCE ONCE IV PUSH Last administered on 03/26/17at 20:12; Start 03/26/17 at 20:15; Stop 03/26/17 at 20:16; Status DC Iohexol (Omnipaque 350 Inj) 95 ml STK-MED ONCE IVCONTRAST Last administered on 03/26/17at 20:39; Start 03/26/17 at 20:39; Stop 03/26/17 at 20:40; Status DC Pharmacy Profile Note 0 ml @ 0 mls/hr UNSCH OTHER ; Start 03/26/17 at 22:45; Stop 04/04/17 at 13:40; Status DC Cefepime HCl 1000 mg/Sodium Chloride 100 ml @ 200 mls/hr Q12H IV Last administered on 03/27/17at 07:44; Start 03/27/17 at 09:00; Stop 03/27/17 at 17:39; Status DC Sodium Chloride 1,000 ml @ 100 mls/hr Q10H IV Last administered on 03/31/17at 11:27; Start 03/26/17 at 22:37; Stop 03/31/17 at 13:41; Status DC Sodium Chloride (NS Flush) 2 ml UNSCH PRN IV FLUSH FLUSH AFTER USING IV ACCESS ; Start 03/26/17 at 22:45 Sodium Chloride (NS Flush) 2 ml BID IV FLUSH Last administered on 04/05/17at 20: 28; Start 03/27/17 at 09:00 Ondansetron HCl (Zofran Inj) 4 mg Q6H PRN IVP NAUSEA OR VOMITING Last administered on 03/27/17at 22:55; Start 03/26/17 at 22:45 Acetaminophen (Tylenol) 650 mg Q6H PRN PO FEVER/PAIN SCALE 1 TO 2 Last administered on 03/30/17at 02:09; Start 03/26/17 at 22:45 Acetaminophen/ Hydrocodone Bitart (Ophiem 5-325 Mg) 1 tab Q4H PRN PO PAIN SCALE 3 TO 5 Last administered on 04/01/17at 08:30; Start 03/26/17 at 22:45; Stop 04/01/17 at 08:56; Status DC Senna/Docusate Sodium (Fanny-Colace) 1 tab BID PO Last administered on at 20:26; Start 03/27/17 at 09:00 Magnesium Hydroxide (Milk Of Magnesia Liq) 30 ml Q12H PRN PO Mild constipation Last administered on 04/04/17at 10:36; Start 03/26/17 at 22:45 Sennosides (Senokot) 17.2 mg Q12H PRN PO Moderate constipation Last administered on 04/05/17at 20:27; Start 03/26/17 at 22:45 Bisacodyl (Dulcolax Supp) 10 mg DAILY PRN RECTAL SEVERE CONSITIPATION; Start at 22:45 Lactulose (Lactulose Liq) 30 ml DAILY PRN PO SEVERE CONSITIPATION Last administered on 04/04/17at 21:02; Start 03/26/17 at 22:45 Hydromorphone HCl (Dilaudid Pf Inj) 1 mg Q4H PRN IV PUSH PAIN 6-10 Last administered on 03/30/17at 12:39; Start 03/26/17 at 22:45; Stop 03/30/17 at 13:01 ; Status DC Vancomycin HCl 1000 mg/Sodium Chloride 250 ml @ 250 mls/hr Q12H IV Last administered on 03/28/17at 12:03; Start 03/26/17 at 23:00; Stop 03/28/17 at 13:11; Status DC Miscellaneous Information SPECIFIC LAB TO BE ALISSA... ONCE ONCE .XX ; Start at 22:45; Stop 03/27/17 at 22:46; Status DC Tizanidine HCl (Zanaflex) 4 mg BID PO Last administered on 03/29/17at 09:57; Start 03/27/17 at 01:00; Stop 03/29/17 at 11:42; Status DC Trazodone HCl (Desyrel) 250 mg HS PO Last administered on 04/04/17at 01:00; Start 03/27/17 at 01:00 Diazepam (Valium) 5 mg Q8H PRN PO MUSCLE SPASM Last administered on 04/06/17at 04:38; Start 03/27/17 at 01:00 Ceftriaxone Sodium 2000 mg/ Sodium Chloride 100 ml @ 200 mls/hr Q12H IV Last administered on 04/01/17at 17:12; Start 03/27/17 at 18:00; Stop 04/01/17 at 18:35 ; Status DC Vancomycin HCl 1600 mg/Sodium Chloride 516 ml @ 258 mls/hr Q18H IV Last administered on 03/29/17at 01:04; Start 03/29/17 at 00:00; Stop 03/29/17 at 13:57; Status DC Miscellaneous Information SPECIFIC LAB TO BE ALISSA... ONCE ONCE .XX Last administered on 03/31/17at 03:45; Start 03/31/17 at 03:45; Stop 03/31/17 at 03:46 ; Status DC Tizanidine HCl (Zanaflex) 8 mg Q8HR PO Last administered on 04/06/17at 04:38; Start 03/29/17 at 14:00 Vancomycin HCl 1500 mg/Sodium Chloride 515 ml @ 258 mls/hr Q12H IV Last administered on 03/31/17at 03:55; Start 03/29/17 at 16:00; Stop 03/31/17 at 12:00 ; Status DC Iohexol (Omnipaque 350 Inj) 100 ml STK-MED ONCE IVCONTRAST Last administered on 03/29/17at 17:29; Start 03/29/17 at 17:29; Stop 03/29/17 at 17:30; Status DC Oxycodone HCl (OxyCONTIN CR) 20 mg Q12HR PO Last administered on 03/31/17at 07: 33; Start 03/30/17 at 13:00; Stop 03/31/17 at 13:44; Status DC Hydromorphone HCl (Dilaudid Pf Inj) 2 mg Q4H PRN IV PUSH PAIN 7-10 Last administered on 04/01/17at 05:50; Start 03/30/17 at 13:00; Stop 04/01/17 at 08:42 ; Status DC Fentanyl (Duragesic 25 Mcg Patch.72 Hr) 1 patch ONCE ONCE T-DERMAL Last administered on 03/30/17at 14:36; Start 03/30/17 at 13:15; Stop 03/30/17 at 13:58 ; Status DC Miscellaneous Information 1 Q3D T-DERMAL Last administered on 04/02/17at 12:55; Start 03/30/17 at 13:15; Stop 04/02/17 at 13:17; Status DC Miscellaneous Information SPECIFIC LAB TO BE DRAWN:VANCOMY... ONCE ONCE .XX Last administered on 04/01/17at 22:45; Start 04/01/17 at 22:45; Stop 04/01/17 at 22:46; Status DC Vancomycin HCl 1500 mg/Sodium Chloride 515 ml @ 258 mls/hr Q12H IV Last administered on 04/04/17at 12:55; Start 03/31/17 at 23:00; Stop 04/04/17 at 13:40 ; Status DC Oxycodone HCl (OxyCONTIN CR) 40 mg Q12HR PO Last administered on 04/06/17at 08: 37; Start 03/31/17 at 21:00 Enoxaparin Sodium (Lovenox Inj) 40 mg Q24H SQ Last administered on 03/31/17at 14 :05; Start 03/31/17 at 14:00; Stop 04/01/17 at 08:55; Status DC Acetaminophen/ Hydrocodone Bitart (Ophiem 5-325 Mg) 10 tab Q4H PRN PO PAIN SCALE 6 TO 10; Start 04/01/17 at 09:00; Stop 04/01/17 at 09:34; Status DC Pantoprazole Sodium (Protonix Inj) 40 mg Q24H IV PUSH Last administered on 04/01at 10:43; Start 04/01/17 at 09:30; Stop 04/01/17 at 17:08; Status DC Acetaminophen/ Hydrocodone Bitart (Ophiem 5-325 Mg) 1 tab Q4H PRN PO PAIN SCALE 6 TO 10; Start 04/01/17 at 13:00; Stop 04/01/17 at 13:00; Status DC Acetaminophen/ Hydrocodone Bitart (Ophiem 10-325 Mg) 1 tab Q4H PRN PO PAIN SCALE 6-10 Last administered on 04/06/17at 08:37; Start 04/01/17 at 11:30 Hydromorphone HCl (Dilaudid Pf Inj) 0.5 mg Q4H PRN IV PAIN SCALE 7 - 10 Last administered on 04/05/17at 17:19; Start 04/01/17 at 11:30 Lactated Ringer's 1,000 ml @ 30 mls/hr Q24H PRN IV SEE LABEL COMMENTS; Start at 14:30; Stop 04/04/17 at 14:29; Status DC Sodium Chloride 500 ml @ 30 mls/hr [id number] PRN IV SEE LABEL COMMENTS; Start 03/07 at 14:30; Stop 04/04/17 at 14:29; Status DC Metoprolol Tartrate (Lopressor) 25 mg [employer] PRN PO SEE LABEL COMMENTS; Start 04/01/17 at 14:30; Stop 04/04/17 at 14:29; Status DC Povidone Iodine (Betadine 5% Antisepsis Kit) 1 applic [employer] PRN EACH NARE SEE LABEL COMMENTS; Start 04/01/17 at 14:30; Stop 04/04/17 at 14:29; Status DC Chlorhexidine Gluconate (Chlorhexidine 2% Cloth) 3 pack [employer] PRN TOPICAL SEE LABEL COMMENTS; Start 04/01/17 at 14:30; Stop 04/04/17 at 14:29; Status DC Epinephrine HCl (Adrenalin (1:1000) Inj) 0.5 mg ONCE ONCE OTHER Last administered on 04/01/17at 16:16; Start 04/01/17 at 16:13; Stop 04/01/17 at 16:16 ; Status DC Pantoprazole Sodium (Protonix Inj) 40 mg Q12H IV PUSH Last administered on 04/03at 22:34; Start 04/01/17 at 23:00; Stop 04/04/17 at 09:11; Status DC Ceftriaxone Sodium 2000 mg/ Sodium Chloride 100 ml @ 200 mls/hr Q24H IV Last administered on 04/05/17at 17:12; Start 04/02/17 at 17:00 Sucralfate (Carafate) 1 gm BIDAC PO Last administered on 04/06/17at 08:37; Start 04/02/17 at 08:45 Sucralfate (Carafate) 1 gm BIDAC PO ; Start 04/02/17 at 08:45; Status UNV Miscellaneous Information SPECIFIC LAB TO BE ... ONCE ONCE .XX ; Start 04/04 at 10:45; Stop 04/04/17 at 10:46; Status DC Pantoprazole Sodium (Protonix) 40 mg Q12HR PO Last administered on 04/06/17at 08 :38; Start 04/04/17 at 21:00 Lactated Ringer's 1,000 ml @ 30 mls/hr Q24H PRN IV SEE LABEL COMMENTS; Start at 02:45; Stop 04/08/17 at 02:44 Sodium Chloride 500 ml @ 30 mls/hr [id number] PRN IV SEE LABEL COMMENTS; Start at 02:45; Stop 04/08/17 at 02:44 Povidone Iodine (Betadine 5% Antisepsis Kit) 1 applic [employer] PRN EACH NARE SEE LABEL COMMENTS; Start 04/05/17 at 02:45; Stop 04/08/17 at 02:44 Chlorhexidine Gluconate (Chlorhexidine 2% Cloth) 3 pack [employer] PRN TOPICAL SEE LABEL COMMENTS; Start 04/05/17 at 02:45; Stop 04/08/17 at 02:44 Dexamethasone Sodium Phosphate (Decadron Inj) 4 mg STK-MED ONCE IV ; Start 04/01 at 12:00; Stop 04/05/17 at 09:45; Status DC Ondansetron HCl (Zofran Inj) 4 mg STK-MED ONCE IV ; Start 04/01/17 at 12:00; Stop 04/05/17 at 09:45; Status DC Cefazolin Sodium (Ancef Inj) 1,000 mg STK-MED ONCE IV Last administered on 04/01at 13:30; Start 04/01/17 at 12:00; Stop 04/05/17 at 09:45; Status DC Propofol (Diprivan 200 Mg/20 ml Inj) 600 mg STK-MED ONCE IV ; Start 04/01/17 at 12:00; Stop 04/05/17 at 09:45; Status DC Acetaminophen 100 ml @ As Directed STK-MED ONCE IV ; Start 04/05/17 at 12:26; Stop 04/05/17 at 12:27; Status DC Vancomycin HCl (Vancomycin Inj) 2,000 mg STK-MED ONCE .ROUTE ; Start 04/05/17 at 12:44; Stop 04/05/17 at 12:45; Status DC Gelatin (Gelfoam 100 Top) 1 foam STK-MED ONCE .ROUTE Last administered on at 13:30; Start 04/05/17 at 12:47; Stop 04/05/17 at 12:48; Status DC Cefazolin Sodium (Ancef Inj) 1,000 mg STK-MED ONCE .ROUTE ; Start 04/05/17 at 13 :28; Stop 04/05/17 at 13:29; Status DC Meperidine HCl (*DEMEROL INJ PERIprocedural ONLY) 25 mg STK-MED ONCE .ROUTE Last administered on 04/05/17at 14:24; Start 04/05/17 at 14:20; Stop 04/05/17 at 14:21; Status DC Sugammadex Sodium (Bridion Inj) 200 mg STK-MED ONCE IV PUSH ; Start 04/05/17 at 14:25; Stop 04/05/17 at 14:26; Status DC Midazolam HCl (Versed Inj) 2 mg STK-MED ONCE .ROUTE ; Start 04/05/17 at 14:28; Stop 04/05/17 at 14:29; Status DC Fentanyl Citrate (fentaNYL INJ) 200 mcg STK-MED ONCE .ROUTE ; Start 04/05/17 at 14:28; Stop 04/05/17 at 14:29; Status DC Sugammadex Sodium (Bridion Inj) 200 mg STK-MED ONCE IV PUSH ; Start 04/05/17 at 14:28; Stop 04/05/17 at 14:29; Status DC Miscellaneous Information ALL NURSING DEPARTME... UNSCH PRN .XX SEE LABEL COMMENTS; Start 04/05/17 at 14:20; Stop 04/06/17 at 14:19 Morphine Sulfate (*morphine INJ PERIprocedure ONLY) 4 mg STK-MED ONCE .ROUTE Last administered on 04/05/17at 15:01; Start 04/05/17 at 15:01; Stop 04/05/17 at 15:02; Status DC Date of Insertion: Mar 28, 2017 Date of Removal: Apr 02, 2017 A/P Problem List: (1) SIRS (systemic inflammatory response syndrome) ICD Code: R65.10 - Systemic inflammatory response syndrome (SIRS) of non- infectious origin without acute organ dysfunction (2) Intractable back pain ICD Code: M54.9 - Dorsalgia, unspecified (3) Hypotension ICD Code: I95.9 - Hypotension, unspecified (4) Renal insufficiency ICD Code: N28.9 - Disorder of kidney and ureter, unspecified Assessment and Plan 61 years old male FUO/SIRS: Source may have been due to the spine stimulator. S/P LP 03/28 Blood Cultures negative Spinal fluid studies cultures negative. AFB studies - negative Status post Vancomycin which was discontinue on 04/04. Now on Rocephin per Dr. Sykes CXR w/ no acute findings, U/a negative. Neurosurgery consulted to evaluate for removal of spine stimulator in which patient had his spine stimulator removed on 04/05 Per infectious disease once spine stimulator removed if he continues to have fever or positive cultures may need to do a MRI. Pending cultures from the OR. Intractable Back Pain: h/o chronic back pain, follows w/ Dr. Lobo, s/p Spinal Stimulator presented with severe exacerbation. - Drastic improvement since surgery. Valium prn for muscle spasm. no fecal or urinary incontinence. CT - no abscess current pain regimen working on Oxycontin 40 mg bid and Hydrocodone 10 q 4 prn, IV Dilaudid prn for severe pain fentanyl patch scheduled Acute Renal Insufficiency: Resolved. UGIB secondary to duodenal ulcer s/p EGD with cautery and clipping of bleeding vessel 04/01 PPI bid- po Carafate 1 gm bid FF CBC- transufse if less than 8 Repat EGD as OP in 3 weeks- with Dr. Goff type and x match 2 units standby no Lovenox with recent GIB advance diet PT consult- - appreciated Hypotension: Transient. Improved. DVT Prophylaxis: SCD/Teds. - no chemical prophylaxis with UGIB Kasey Mcfarland MD Apr 06, 2017 09:04
--- NOTE | 2017-04-06 10:28 | HHI.NSPN ---
(Brian Allan) History Chief Complaint: Incisional pain controlled s/p epidural stimulator removal. (Brian Allan) Interval History A 61-year-old obese gentleman with a chronic history of low back pain. He relates that he had a spinal stimulator placed in [place] 6 years ago. The stimulator was working up until the last couple of months when he could not recharge it or stimulate it externally. He relates the stimulator was working, it would only function when he was laying down and stimulated. It did not work when he was ambulating or sitting up. He has chronic low back pain. He relates that they cannot sit or walk for more than 30 minutes. He is also on chronic narcotic pain medications and relates he has been taking these for the last 6-8 years and obviously has developed tolerance. He relates that he saw Dr. Lobo orthopedics spine surgeon in the clinic and she scheduled a CT myelogram which was done at [facility] on 03/22/2017. He subsequently saw her in the office and was informed that there was not anything from spinal surgical standpoint that could be undertaken. He relates that after the myelogram he developed severe low back pain which was not his typical back pain and worse than before with muscle spasms. He also had a low grade fever with temperature spikes as high as 102.1 a week ago over the last 48 hours he has been afebrile. He was on vancomycin and then switched to ceftriaxone and followed by infectious disease. His white counts are normal and all his cultures have been negative including blood cultures and lumbar tap with CSF cultures. A Plain CT scan of the lumbar spine is also obtained from 03/29/2017 and it reveals some intrathecal gas bubbles around the L4-L5 level which is not atypical after a spinal tap or myelogram but no obvious abscess is identified. The spinal stimulator was placed in the left flank area with leads extending intrathecally in the epidural space at T11-12 level superiorly up to at least the T10 level. He has been seen by the orthopedic spine surgeon while in the hospital and was informed that he should follow up with his pain specialist to have this removed as this was not urgent and likely not infected. He relates that he has moved down to [place] and cannot follow up with his pain specialist who placed the stimulator in [place]. Neurosurgery consultation has been requested to remove the stimulator. For some reason infectious disease physicians feel that there is an infection but medications not working either. He relates that he gets severe back spasms when he moves his legs with flexion at the hip or sides but he does not have any tenderness to palpation on the stimulators battery site or midline of the spine to palpation. 04/06/17: Pt awake and alert. States pain is feeling better and now he describes just his chronic underlying pain he had. (Brian Allan) Review of Systems General: Negative for: fever, chills, insomnia Respiratory: Negative for: shortness of breath, cough, sputum Cardiovascular: Negative for: chest pain Gastrointestinal: Negative for: nausea, vomitting, diarrhea, constipation ( Brian Allan) Exam Results Vital Signs Date Time Temp Pulse Resp B/P (MAP) Pulse Ox O2 Delivery O2 Flow Rate FiO2 04/06/17 08:00 96.6 61 18 123/58 (79) 94 04/06/17 04:44 Room Air 04/05/17 20:25 2.00 Intake and Output 04/06/17 04/06/17 04/07/17 08:00 16:00 00:00 Intake Total 960 ml Output Total 1300 ml Balance -340 ml (Brian Allan) Physical Examination General: Pt awake and appears comfortable resting in bed. Resp: CTA bilaterally Heart: NSR no murmurs Abd: Soft positive bs. Obese. Skin: No cyanosis or erythema. Pt log rolled both incisions are clean and dry with steri strips in place. No erythema or signs of infection or complication. Muscle: Moves all 4 extremities well. Neuro: Pt awake and alert. Follows commands well. Speech clear and appropriate. Sensation intact. (Brian Allan) Lab, Micro, Other Results Last Impressions Thoracic Spine X-Ray 04/05/17 0000 Signed Impressions: Service Date/Time: Wednesday, April 05, 2017 13:32 - CONCLUSION: 1. No retained lead fragments identified. Mikel Cunningham MD Lumbar Spine CT 03/29/17 0000 Signed Impressions: Service Date/Time: Wednesday, March 29, 2017 17:26 - CONCLUSION: 1. Tiny bubbles of gas within the central canal at L4 and L5, appearing to be intrathecal and presumably iatrogenic. No abscess is demonstrated. 2. Lower lumbar degenerative changes as above. 3. Spinal stimulator leads are partly included on the study. No evidence an associated acute complication. 4. No fracture or subluxation. Daron Christianson MD Lumbar Puncture Fluoroscopy 03/28/17 0000 Signed Impressions: Service Date/Time: Tuesday, March 28, 2017 15:14 - CONCLUSION: Uncomplicated fluoroscopically guided lumbar puncture. Calixto Caldwell MD Chest X-Ray 03/26/17 1657 Signed Impressions: Service Date/Time: Sunday, March 26, 2017 17:06 - CONCLUSION: Cardiomegaly. No acute cardiopulmonary disease. Saulo Abdi MD Head CT 03/26/17 0000 Signed Impressions: Service Date/Time: Sunday, March 26, 2017 20:18 - CONCLUSION: No acute disease. No evidence of acute infarct, hemorrhage, mass or edema. Arnoldo Caba MD Abdomen/Pelvis CT 03/26/17 0000 Signed Impressions: Service Date/Time: Sunday, March 26, 2017 20:23 - CONCLUSION: 1. Multiple bilateral nonobstructing renal calculi. No evidence of hydronephrosis. 2. Hepatic steatosis. 3. Dorsal column stimulator. 4. No acute process. Arnoldo Caba MD Laboratory Tests Test 04/06/17 07:00 White Blood Count 11.5 TH/MM3 Red Blood Count 2.59 MIL/MM3 Hemoglobin 8.0 GM/DL Hematocrit 23.7 % Mean Corpuscular Volume 91.6 FL Mean Corpuscular Hemoglobin 31.0 PG Mean Corpuscular Hemoglobin Concent 33.9 % Red Cell Distribution Width 13.3 % Platelet Count 343 TH/MM3 Mean Platelet Volume 7.1 FL Blood Urea Nitrogen 12 MG/DL Creatinine 0.58 MG/DL Random Glucose 156 MG/DL Calcium Level 7.9 MG/DL Sodium Level 139 MEQ/L Potassium Level 3.9 MEQ/L Chloride Level 104 MEQ/L Carbon Dioxide Level 30.9 MEQ/L Anion Gap 4 MEQ/L Estimat Glomerular Filtration Rate 142 ML/MIN (Brian Allan) Medical Decision Making Impression and Plan IMPRESSION 1. Chronic low back pain without any significant spinal stenosis based on the CT myelogram report although we do not have the films available for review since they were done at [facility] and attempts to obtain them have not been successful. The patient's spine surgeon apparently has reviewed them and signed off. The spinal stimulator obviously is not working at this point and was not providing adequate pain control even when it was working and the patient wants this removed so he can have a newer stimulator placed more advanced features. 2. History of worsening back pain after myelogram with fevers. The fevers have resolved with antibiotic treatment, although the back pain he states is persistent although slightly improved with pain medications. No clear-cut indication for infection at this point. 3. Pt underwent removal of spinal stimulator and battery on 04/05/17. PLAN Follow cultures D/C Lee Advance activity as tolerated. (Brian Allan) Attending Statement The exam, history, and the medical decision-making described in the above note were completed with the assistance of the mid-level provider. I reviewed and agree with the findings presented. I attest that I had a [id number] encounter with the patient on the same day, and personally performed and documented my assessment and findings in the medical record. Relates improvement in his back pain with removal of the spinal stimulator and he appreciates our efforts in this regard. Cultures have been negative so far. Not much further that I can add to his care from a neurosurgical standpoint. (Naresh Mckeon MD) Brian Allan Apr 06, 2017 10:28 Naresh Mckeon MD Apr 06, 2017 16:57
--- NOTE | 2017-04-06 12:37 | HHI.IDPN ---
Note Infectious Disease Note Patient says he feels a whole lot better but has pain in the tailbone. he reports that the pain he was getting when the spinal stimulator was in place is gone. Afebrile. No fever last 36 hours. Up in bedside chair. Wound culture pending. patient reports he is going to rehab. PAST MEDICAL HISTORY 1. Chronic back pain. 2. Hypertension. 3. Lithotripsy. 4. Spinal stimulator. ALLERGIES NO KNOWN DRUG ALLERGIES. MEDICATIONS Ceftriaxone. OBJECTIVE: Vital Signs Date Time Temp Pulse Resp B/P (MAP) Pulse Ox O2 Delivery O2 Flow Rate FiO2 04/06/17 10:43 94 04/06/17 08:00 96.6 61 18 123/58 (79) 94 04/06/17 07:35 62 04/06/17 04:44 98 Room Air 04/06/17 04:15 66 04/06/17 03:45 97.7 74 17 163/74 (103) 98 04/06/17 00:09 54 04/05/17 23:55 97.7 56 17 123/63 (83) 98 04/05/17 20:44 82 04/05/17 20:25 97 Nasal Cannula 2.00 04/05/17 20:24 96 Nasal Cannula 2.00 04/05/17 19:40 98.6 84 19 160/74 (102) 97 04/05/17 16:00 97.6 78 18 138/65 (89) 96 04/05/17 15:15 98.7 70 16 143/63 (89) 97 Nasal Cannula 2 04/05/17 15:00 73 14 140/64 (89) 97 Nasal Cannula 2 04/05/17 14:45 75 15 126/61 (82) 97 Nasal Cannula 2 04/05/17 14:30 73 13 128/58 (81) 98 Nasal Cannula 2 04/05/17 14:24 99.1 82 15 167/72 (103) 97 Nasal Cannula 2 Laboratory Tests Test 04/05/17 05:30 04/06/17 07:00 White Blood Count 9.6 TH/MM3 11.5 TH/MM3 Red Blood Count 2.73 MIL/MM3 2.59 MIL/MM3 Hemoglobin 8.7 GM/DL 8.0 GM/DL Hematocrit 24.9 % 23.7 % Mean Corpuscular Volume 91.2 FL 91.6 FL Mean Corpuscular Hemoglobin 31.9 PG 31.0 PG Mean Corpuscular Hemoglobin Concent 35.0 % 33.9 % Red Cell Distribution Width 13.9 % 13.3 % Platelet Count 305 TH/MM3 343 TH/MM3 Mean Platelet Volume 7.7 FL 7.1 FL Neutrophils (%) (Auto) 68.7 % Lymphocytes (%) (Auto) 21.5 % Monocytes (%) (Auto) 7.3 % Eosinophils (%) (Auto) 2.3 % Basophils (%) (Auto) 0.2 % Neutrophils # (Auto) 6.6 TH/MM3 Lymphocytes # (Auto) 2.1 TH/MM3 Monocytes # (Auto) 0.7 TH/MM3 Eosinophils # (Auto) 0.2 TH/MM3 Basophils # (Auto) 0.0 TH/MM3 CBC Comment DIFF FINAL Differential Comment Hematology Comments Laboratory Tests Test 04/06/17 07:00 Blood Urea Nitrogen 12 MG/DL Creatinine 0.58 MG/DL Random Glucose 156 MG/DL Calcium Level 7.9 MG/DL Sodium Level 139 MEQ/L Potassium Level 3.9 MEQ/L Chloride Level 104 MEQ/L Carbon Dioxide Level 30.9 MEQ/L Anion Gap 4 MEQ/L Estimat Glomerular Filtration Rate 142 ML/MIN Microbiology Date/Time Source Procedure Growth Status 04/05/17 13:39 Wound Other Fungal Smear - Final NO FUNGAL ELEMENTS SEEN. Resulted 04/05/17 13:39 Wound Other Fungal Culture Pending Resulted 04/05/17 13:39 Wound Other Acid Fast Stain Pending Received 04/05/17 13:39 Wound Other Mycobacterial Culture Pending Received 04/05/17 13:39 Wound Other Gram Stain - Final Resulted 04/05/17 13:39 Wound Other Wound Culture Pending Resulted 04/05/17 13:39 Wound Other Fungal Smear - Final NO FUNGAL ELEMENTS SEEN. Resulted 04/05/17 13:39 Wound Other Fungal Culture Pending Resulted 04/05/17 13:39 Wound Other Acid Fast Stain Pending Received 04/05/17 13:39 Wound Other Mycobacterial Culture Pending Received 04/05/17 13:39 Wound Other Gram Stain - Final Resulted 04/05/17 13:39 Wound Other Wound Culture Pending Resulted 04/05/17 13:39 Wound Other Fungal Smear - Final NO FUNGAL ELEMENTS SEEN. Resulted 04/05/17 13:39 Wound Other Fungal Culture Pending Resulted 04/05/17 13:39 Wound Other Acid Fast Stain Pending Received 04/05/17 13:39 Wound Other Mycobacterial Culture Pending Received 04/05/17 13:39 Wound Other Gram Stain - Final Resulted 04/05/17 13:39 Wound Other Wound Culture Pending Resulted IMAGING: Thoracic Spine X-Ray 04/05/17 0000 Signed Impressions: Service Date/Time: Wednesday, April 05, 2017 13:32 - CONCLUSION: 1. No retained lead fragments identified. Mikel Cunningham MD Lumbar Spine CT 03/29/17 0000 Signed Impressions: Service Date/Time: Wednesday, March 29, 2017 17:26 - CONCLUSION: 1. Tiny bubbles of gas within the central canal at L4 and L5, appearing to be intrathecal and presumably iatrogenic. No abscess is demonstrated. 2. Lower lumbar degenerative changes as above. 3. Spinal stimulator leads are partly included on the study. No evidence an associated acute complication. 4. No fracture or subluxation. Daron Christianson MD Lumbar Puncture Fluoroscopy 03/28/17 0000 Signed Impressions: Service Date/Time: Tuesday, March 28, 2017 15:14 - CONCLUSION: Uncomplicated fluoroscopically guided lumbar puncture. Calixto Caldwell MD Chest X-Ray 03/26/17 1657 Signed Impressions: Service Date/Time: Sunday, March 26, 2017 17:06 - CONCLUSION: Cardiomegaly. No acute cardiopulmonary disease. Saulo Abdi MD Head CT 03/26/17 0000 Signed Impressions: Service Date/Time: Sunday, March 26, 2017 20:18 - CONCLUSION: No acute disease. No evidence of acute infarct, hemorrhage, mass or edema. Arnoldo Caba MD Abdomen/Pelvis CT 03/26/17 0000 Signed Impressions: Service Date/Time: Sunday, March 26, 2017 20:23 - CONCLUSION: 1. Multiple bilateral nonobstructing renal calculi. No evidence of hydronephrosis. 2. Hepatic steatosis. 3. Dorsal column stimulator. 4. No acute process. Arnoldo Caba MD PHYSICAL EXAMINATION GENERAL: no acute distress. HEENT: No icterus. NECK: Supple without swelling or adenopathy. LUNGS: Clear. HEART: Regular S1-S2. No murmurs, rub or gallops. ABDOMEN: Bowel sounds present but decreased, soft, nontender. BACK: No tenderness on palpation of the back. EXTREMITIES: No clubbing, cyanosis or edema. SKIN: No visible rash. NEUROLOGIC: No gross focal findings. PSYCHIATRIC: Calm and cooperative. IMPRESSION 1. Fever of unknown origin. Unclear etiology. Patient with negative chest x-ray and blood cultures are also unremarkable. He is status post myelogram and fever could be related to that procedure. He had intractable back pain and it could be related to back issues from before, but he states that the pain is of a different characteristic and it is not clear whether it may be related to infection in the lower back. The white blood cell count is normal, however. 2. No evidence of meningitis on CSF. 3. Probable infection related to the spinal stimulator. Post removal of the spinal stimulator04/05/17. RECOMMENDATIONS 1. Stop Ceftriaxone. 2. Follow the culture of the spinal stimulator leads until final. 3. Can go to rehab from ID standpoint. Yanick Sykes MD Apr 06, 2017 12:37
[2017-04-06] MEDS: traZODone HCL 100 MG TAB PO SCH (20:02)
[2017-04-07] VITALS: PULSE 51
[2017-04-07 01:40] VITALS: BP 102/56; PULSE 71; RESP 17; TEMP 97.4; O2SAT 93
[2017-04-07] MEDS: ACETAMINOPHEN/HYDROcodone 325 MG/10 MG TAB PO PRN ×3 (02:14→13:26)
[2017-04-07 04:00] VITALS: PULSE 71
[2017-04-07 04:30] VITALS: BP 112/59; PULSE 66; RESP 17; TEMP 97.3; O2SAT 96
[2017-04-07] MEDS: DIAZEPAM 5 MG TAB PO PRN (05:38)
[2017-04-07 08:00] VITALS: BP 98/55; PULSE 65; RESP 18; TEMP 97.5; O2SAT 93
[2017-04-07] MEDS: SUCRALFATE 1 GM TAB PO SCH (08:05)
[2017-04-07] MEDS: PANTOPRAZOLE SOD 40 MG DELAYED RELEASE TAB PO SCH (08:05)
[2017-04-07] MEDS: oxyCODONE HCL 20 MG CONTROLLED RELEASE TAB PO SCH (08:06)
[2017-04-07] MEDS: DOCUSATE SODIUM 50 MG/SENNA 8.6 MG TAB PO SCH (08:06)
--- NOTE | 2017-04-07 09:07 | HHI.PR ---
Subjective Remarks Pt states pain is controlled. was told he needed to go to rehab but worried about cost. no nausea or vomiting. discussed w RN, Hb slowly trending down. apparently yesterday he had loose stools color of "oreos". GI did see pt during this hospitalization. Objective Vitals Vital Signs Date Time Temp Pulse Resp B/P (MAP) Pulse Ox O2 Delivery O2 Flow Rate FiO2 04/07/17 08:00 97.5 65 18 98/55 (69) 93 04/07/17 05:46 94 Room Air 04/07/17 04:30 97.3 66 17 112/59 (76) 96 04/07/17 04:00 71 04/07/17 01:40 97.4 71 17 102/56 (71) 93 04/07/17 00:00 51 04/06/17 20:57 2.00 04/06/17 20:30 96.7 57 17 92/52 (65) 93 04/06/17 20:01 93 Nasal Cannula 2.00 04/06/17 20:00 95 04/06/17 16:00 98.9 101 18 129/61 (83) 93 04/06/17 12:00 97.4 80 18 98/58 (71) 94 04/06/17 10:43 94 I/O 04/06/17 04/06/17 04/06/17 04/07/17 04/07/17 04/07/17 07:00 15:00 23:00 07:00 15:00 23:00 Intake Total 960 ml 720 ml 720 ml 960 ml Output Total 1300 ml 400 ml 0 ml 250 ml 650 ml Balance -340 ml 320 ml 720 ml -250 ml 310 ml Intake Oral 960 ml 720 ml 720 ml 960 ml Output Urine Total 1300 ml 400 ml 0 ml 250 ml 650 ml # Bowel Movements 1 1 0 1 Result Diagram: 04/06/17 0700 04/06/17 0700 Imaging Last Impressions Thoracic Spine X-Ray 04/05/17 0000 Signed Impressions: Service Date/Time: Wednesday, April 05, 2017 13:32 - CONCLUSION: 1. No retained lead fragments identified. Mikel Cunningham MD Lumbar Spine CT 03/29/17 0000 Signed Impressions: Service Date/Time: Wednesday, March 29, 2017 17:26 - CONCLUSION: 1. Tiny bubbles of gas within the central canal at L4 and L5, appearing to be intrathecal and presumably iatrogenic. No abscess is demonstrated. 2. Lower lumbar degenerative changes as above. 3. Spinal stimulator leads are partly included on the study. No evidence an associated acute complication. 4. No fracture or subluxation. Daron Christianson MD Lumbar Puncture Fluoroscopy 03/28/17 0000 Signed Impressions: Service Date/Time: Tuesday, March 28, 2017 15:14 - CONCLUSION: Uncomplicated fluoroscopically guided lumbar puncture. Calixto Caldwell MD Chest X-Ray 03/26/17 1657 Signed Impressions: Service Date/Time: Sunday, March 26, 2017 17:06 - CONCLUSION: Cardiomegaly. No acute cardiopulmonary disease. Saulo Abdi MD Head CT 03/26/17 0000 Signed Impressions: Service Date/Time: Sunday, March 26, 2017 20:18 - CONCLUSION: No acute disease. No evidence of acute infarct, hemorrhage, mass or edema. Arnoldo Caba MD Abdomen/Pelvis CT 03/26/17 0000 Signed Impressions: Service Date/Time: Sunday, March 26, 2017 20:23 - CONCLUSION: 1. Multiple bilateral nonobstructing renal calculi. No evidence of hydronephrosis. 2. Hepatic steatosis. 3. Dorsal column stimulator. 4. No acute process. Arnoldo Caba MD Objective Remarks GENERAL: in NAD NECK: trachea midline CARDIOVASCULAR: Regular rate and rhythm without murmurs RESPIRATORY: Breath sounds equal bilaterally. No accessory muscle use. no wheezing GASTROINTESTINAL: Abdomen soft, non-tender, nondistended. LE sensation intact. moves extremities. Procedures 03/28- LP 04/01- EGD- with duodenal ulcer- bleeding vessel clipped and cautery performed Date of Insertion: Mar 28, 2017 Date of Removal: Apr 02, 2017 A/P Problem List: (1) SIRS (systemic inflammatory response syndrome) ICD Code: R65.10 - Systemic inflammatory response syndrome (SIRS) of non- infectious origin without acute organ dysfunction (2) Intractable back pain ICD Code: M54.9 - Dorsalgia, unspecified (3) Hypotension ICD Code: I95.9 - Hypotension, unspecified (4) Renal insufficiency ICD Code: N28.9 - Disorder of kidney and ureter, unspecified Assessment and Plan 61 years old male FUO/SIRS: Source may have been due to the spine stimulator. S/P LP 03/28 Blood Cultures thus far negative Spinal fluid studies cultures negative. AFB studies- negative Status post Vancomycin which was discontinue on 04/04. s/p Rocephin which has been stopped per Dr. Sykes CXR w/ no acute findings, U/a negative. Neurosurgery following, s/p removal of spine stimulator on 04/05 Per infectious disease pt can be discharged to rehab. will need to f/u on OR cultures until final. Discussed w RN, she will call neurosx to know if pt can be discharged from their standpoing. Intractable Back Pain: h/o chronic back pain, follows w/ Dr. Lobo, s/p Spinal Stimulator presented with severe exacerbation. - Drastic improvement since surgery. Valium prn for muscle spasm. no fecal or urinary incontinence. CT - no abscess current pain regimen working on Oxycontin 40 mg bid and Hydrocodone 10 q 4 prn, IV Dilaudid prn for severe pain fentanyl patch scheduled Acute Renal Insufficiency: Resolved. UGIB secondary to duodenal ulcer s/p EGD with cautery and clipping of bleeding vessel 04/01 PPI bid- po Carafate 1 gm bid FF CBC- transufse if less than 8 Repat EGD as OP in 3 weeks- with Dr. Goff type and x match 2 units standby no Lovenox with recent GIB advance diet Check Hb now as yesterday it was down to 8.0. Awaiting final recs from GI as well. PT following and strongly recommends inpatient rehab upon discharged. CM has been notified. Hypotension: Transient. Improved. DVT Prophylaxis: SCD/Teds. - no chemical prophylaxis with UGIB Discharge Planning f/u Hb today. IF stable and cleared by GI and neurosx, will d/c to inpatient rehab. CM following. Soledad Samuels MD Apr 07, 2017 09:07
--- NOTE | 2017-04-07 09:56 | HHI.NSPN ---
History Chief Complaint: Incisional pain controlled s/p epidural stimulator removal. Interval History A 61-year-old obese gentleman with a chronic history of low back pain. He relates that he had a spinal stimulator placed in [place] 6 years ago. The stimulator was working up until the last couple of months when he could not recharge it or stimulate it externally. He relates the stimulator was working, it would only function when he was laying down and stimulated. It did not work when he was ambulating or sitting up. He has chronic low back pain. He relates that they cannot sit or walk for more than 30 minutes. He is also on chronic narcotic pain medications and relates he has been taking these for the last 6-8 years and obviously has developed tolerance. He relates that he saw Dr. Lobo orthopedics spine surgeon in the clinic and she scheduled a CT myelogram which was done at [facility] on 03/22/2017. He subsequently saw her in the office and was informed that there was not anything from spinal surgical standpoint that could be undertaken. He relates that after the myelogram he developed severe low back pain which was not his typical back pain and worse than before with muscle spasms. He also had a low grade fever with temperature spikes as high as 102.1 a week ago over the last 48 hours he has been afebrile. He was on vancomycin and then switched to ceftriaxone and followed by infectious disease. His white counts are normal and all his cultures have been negative including blood cultures and lumbar tap with CSF cultures. A Plain CT scan of the lumbar spine is also obtained from 03/29/2017 and it reveals some intrathecal gas bubbles around the L4-L5 level which is not atypical after a spinal tap or myelogram but no obvious abscess is identified. The spinal stimulator was placed in the left flank area with leads extending intrathecally in the epidural space at T11-12 level superiorly up to at least the T10 level. He has been seen by the orthopedic spine surgeon while in the hospital and was informed that he should follow up with his pain specialist to have this removed as this was not urgent and likely not infected. He relates that he has moved down to [place] and cannot follow up with his pain specialist who placed the stimulator in [place]. Neurosurgery consultation has been requested to remove the stimulator. For some reason infectious disease physicians feel that there is an infection but medications not working either. He relates that he gets severe back spasms when he moves his legs with flexion at the hip or sides but he does not have any tenderness to palpation on the stimulators battery site or midline of the spine to palpation. 04/06/17: Pt awake and alert. States pain is feeling better and now he describes just his chronic underlying pain he had. 04/07/17: Pt awake and alert. States pain in back is his stable chronic back pain. No radiculopathy or paresthesias in LEs. Review of Systems General: Negative for: fever, chills, insomnia Respiratory: Negative for: shortness of breath, cough, sputum Cardiovascular: Negative for: chest pain Gastrointestinal: Negative for: nausea, vomitting, diarrhea, constipation Exam Results Vital Signs Date Time Temp Pulse Resp B/P (MAP) Pulse Ox O2 Delivery O2 Flow Rate FiO2 04/07/17 08:00 97.5 65 18 98/55 (69) 93 04/07/17 05:46 Room Air 04/06/17 20:57 2.00 Intake and Output 04/07/17 04/07/17 04/08/17 08:00 16:00 00:00 Intake Total 960 ml Output Total 900 ml Balance 60 ml Physical Examination General: Pt awake and appears comfortable resting in bed. Resp: CTA bilaterally Heart: NSR no murmurs Abd: Soft positive bs. Obese. Skin: No cyanosis or erythema. Muscle: Moves all 4 extremities well. Neuro: Pt awake and alert. Follows commands well. Speech clear and appropriate. Sensation intact. Lab, Micro, Other Results Last Impressions Thoracic Spine X-Ray 04/05/17 0000 Signed Impressions: Service Date/Time: Wednesday, April 05, 2017 13:32 - CONCLUSION: 1. No retained lead fragments identified. Mikel Cunningham MD Lumbar Spine CT 03/29/17 0000 Signed Impressions: Service Date/Time: Wednesday, March 29, 2017 17:26 - CONCLUSION: 1. Tiny bubbles of gas within the central canal at L4 and L5, appearing to be intrathecal and presumably iatrogenic. No abscess is demonstrated. 2. Lower lumbar degenerative changes as above. 3. Spinal stimulator leads are partly included on the study. No evidence an associated acute complication. 4. No fracture or subluxation. Daron Christianson MD Lumbar Puncture Fluoroscopy 03/28/17 0000 Signed Impressions: Service Date/Time: Tuesday, March 28, 2017 15:14 - CONCLUSION: Uncomplicated fluoroscopically guided lumbar puncture. Calixto Caldwell MD Chest X-Ray 03/26/17 1657 Signed Impressions: Service Date/Time: Sunday, March 26, 2017 17:06 - CONCLUSION: Cardiomegaly. No acute cardiopulmonary disease. Saulo Abdi MD Head CT 03/26/17 0000 Signed Impressions: Service Date/Time: Sunday, March 26, 2017 20:18 - CONCLUSION: No acute disease. No evidence of acute infarct, hemorrhage, mass or edema. Arnoldo Caba MD Abdomen/Pelvis CT 03/26/17 0000 Signed Impressions: Service Date/Time: Sunday, March 26, 2017 20:23 - CONCLUSION: 1. Multiple bilateral nonobstructing renal calculi. No evidence of hydronephrosis. 2. Hepatic steatosis. 3. Dorsal column stimulator. 4. No acute process. Arnoldo Caba MD 04/07/17 04/07/17 04/08/17 15:00 23:00 07:00 Intake Total 960 ml Output Total 650 ml Balance 310 ml Intake Oral 960 ml Output Urine Total 650 ml # Bowel Movements 1 Medical Decision Making Impression and Plan IMPRESSION 1. Chronic low back pain without any significant spinal stenosis based on the CT myelogram report although we do not have the films available for review since they were done at [facility] and attempts to obtain them have not been successful. The patient's spine surgeon apparently has reviewed them and signed off. The spinal stimulator obviously is not working at this point and was not providing adequate pain control even when it was working and the patient wants this removed so he can have a newer stimulator placed more advanced features. 2. History of worsening back pain after myelogram with fevers. The fevers have resolved with antibiotic treatment, although the back pain he states is persistent although slightly improved with pain medications. No clear-cut indication for infection at this point. 3. Pt underwent removal of spinal stimulator and battery on 04/05/17. PLAN Follow cultures Advance activity as tolerated. Rehab placement when we have culture results. So far negative at 48 hours. Brian Allan Apr 07, 2017 9:56 am
[2017-04-07 12:00] VITALS: BP 108/63; PULSE 83; RESP 18; TEMP 97.8; O2SAT 93
[2017-04-07 12:38] LABS: HEMATOCRIT 26.5 % (39.0-51.0)
--- NOTE | 2017-04-07 15:45 | HHI.DS ---
Discharge Summary Admission Date Mar 26, 2017 at 22:30 Discharge Date: Apr 07, 2017 Admitting Diagnosis fever of unknown etiology, severe back pain, (1) SIRS (systemic inflammatory response syndrome) ICD Code: R65.10 - Systemic inflammatory response syndrome (SIRS) of non- infectious origin without acute organ dysfunction (2) Intractable back pain ICD Code: M54.9 - Dorsalgia, unspecified (3) Hypotension ICD Code: I95.9 - Hypotension, unspecified (4) Renal insufficiency ICD Code: N28.9 - Disorder of kidney and ureter, unspecified Procedures 03/28- LP 04/01- EGD- with duodenal ulcer- bleeding vessel clipped and cautery performed Brief History - From Admission This is a 61-year-old male with a PMH of HTN and Chronic Back Pain s/p Spinal Stimulator who presented to the ER with complaints of fever in addition to worsening back pain. Has been following w/ Dr. Lobo for c/o chronic back pain , s/p Lumbar Myelogram and LP on 03/22/17. States he's had c/o severe back pain, 10/10, non-radiating, associated w/ nausea and vomiting since procedure, yesterday had fever. Seen by Dr. Lobo in office yesterday and states he was told likely has infection. Today w/ ongoing symptoms and decided to come to ER. On arrival, BP 120/67, HR 71, O2 sat 97% on 2L NC, Temp 102.8. While in the ER, patient with transient hypotension, BP 88/54, HR 64. Responded to IVF. CBC essentially unremarkable except for elevated neutrophil count. Had a 1.44 , no bruits labs for comparison. Lactic Acid 1.9. 1.2. UA negative. CXR with no acute findings. CT Abd/Pelvis w/ multiple bilateral nonobstructing renal stones, no evidence of hydronephrosis, dorsal column stimulator, no acute process. CT Head with no acute findings. LP considered to r/o Meningitis, however unable to perform in ER, ER physician discussed w/ Radiologist, plan is for LP in am. S/p Vanc/Zosyn in ER. CBC/BMP: 04/07/17 1223 04/06/17 0700 Significant Findings Laboratory Tests Test 04/05/17 05:30 04/06/17 07:00 04/07/17 12:23 Red Blood Count 2.73 MIL/MM3 (4.50-5.90) 2.59 MIL/MM3 (4.50-5.90) Hemoglobin 8.7 GM/DL (13.0-17.0) 8.0 GM/DL (13.0-17.0) 9.0 GM/DL (13.0-17.0) Hematocrit 24.9 % (39.0-51.0) 23.7 % (39.0-51.0) 26.5 % (39.0-51.0) White Blood Count 11.5 TH/MM3 (4.0-11.0) Creatinine 0.58 MG/DL (0.60-1.30) Random Glucose 156 MG/DL (74-106) Calcium Level 7.9 MG/DL (8.5-10.1) Anion Gap 4 MEQ/L (5-15) Imaging Last Impressions Thoracic Spine X-Ray 04/05/17 0000 Signed Impressions: Service Date/Time: Wednesday, April 05, 2017 13:32 - CONCLUSION: 1. No retained lead fragments identified. Mikel Cunningham MD Lumbar Spine CT 03/29/17 0000 Signed Impressions: Service Date/Time: Wednesday, March 29, 2017 17:26 - CONCLUSION: 1. Tiny bubbles of gas within the central canal at L4 and L5, appearing to be intrathecal and presumably iatrogenic. No abscess is demonstrated. 2. Lower lumbar degenerative changes as above. 3. Spinal stimulator leads are partly included on the study. No evidence an associated acute complication. 4. No fracture or subluxation. Daron Christianson MD Lumbar Puncture Fluoroscopy 03/28/17 0000 Signed Impressions: Service Date/Time: Tuesday, March 28, 2017 15:14 - CONCLUSION: Uncomplicated fluoroscopically guided lumbar puncture. Calixto Caldwell MD Chest X-Ray 03/26/17 1657 Signed Impressions: Service Date/Time: Sunday, March 26, 2017 17:06 - CONCLUSION: Cardiomegaly. No acute cardiopulmonary disease. Saulo Abdi MD Head CT 03/26/17 0000 Signed Impressions: Service Date/Time: Sunday, March 26, 2017 20:18 - CONCLUSION: No acute disease. No evidence of acute infarct, hemorrhage, mass or edema. Arnoldo Caba MD Abdomen/Pelvis CT 03/26/17 0000 Signed Impressions: Service Date/Time: Sunday, March 26, 2017 20:23 - CONCLUSION: 1. Multiple bilateral nonobstructing renal calculi. No evidence of hydronephrosis. 2. Hepatic steatosis. 3. Dorsal column stimulator. 4. No acute process. Arnoldo Caba MD PE at Discharge GENERAL: in NAD NECK: trachea midline CARDIOVASCULAR: Regular rate and rhythm without murmurs RESPIRATORY: Breath sounds equal bilaterally. No accessory muscle use. no wheezing GASTROINTESTINAL: Abdomen soft, non-tender, nondistended. LE sensation intact. moves extremities. Hospital Course FUO/SIRS: Source may have been due to the spine stimulator. S/P LP 03/28 Blood Cultures thus far negative Spinal fluid studies cultures negative. AFB studies- negative Status post Vancomycin which was discontinue on 04/04. s/p Rocephin which has been stopped per Dr. Sykes CXR w/ no acute findings, U/a negative. Neurosurgery following, s/p removal of spine stimulator on 04/05 Per infectious disease pt can be discharged to rehab. will need to f/u on OR cultures until final which so far are neg to date. Pt has been cleared by neurosx and ID for d/c w recommendations that cultures be followed up while at [facility] Intractable Back Pain: h/o chronic back pain, follows w/ Dr. Lobo, s/p Spinal Stimulator presented with severe exacerbation. - Drastic improvement since surgery. Valium prn for muscle spasm. no fecal or urinary incontinence. CT - no abscess current pain regimen working on Oxycontin 40 mg bid and Hydrocodone 10 q 4 prn, IV Dilaudid prn for severe pain fentanyl patch scheduled Acute Renal Insufficiency: Resolved. UGIB secondary to duodenal ulcer s/p EGD with cautery and clipping of bleeding vessel 04/01 PPI bid- po Carafate 1 gm bid FF CBC- transufse if less than 8 Repat EGD as OP in 3 weeks- with Dr. Goff type and x match 2 units standby no Lovenox with recent GIB Pt Condition on Discharge: Stable Discharge Disposition: Rehab Inpatient Discharge Time: > 30 minutes Discharge Instructions DIET: Follow Instructions for: As Tolerated, No Restrictions Activities you can perform: Regular-No Restrictions Follow up Referrals: Gastroenterology - 2 Weeks Neurosurgery - 2 Weeks PCP Follow-up - 1 Week New Medications: Diazepam (Valium) 5 Mg Tab 5 MG PO Q8H PRN for MUSCLE SPASM, #5 TAB Pantoprazole (Pantoprazole) 40 Mg Tab 40 MG PO Q12HR, #60 TAB Sucralfate (Carafate) 1 Gram Tab 1 GM PO BIDAC, #60 TAB [oxyCODONE SR] () 20 MG TABCR 40 MG PO Q12HR, #10 Continued Medications: Oxycodone ER (Oxycodone ER) 20 Mg Tab 20 MG PO Q12HR for Pain Management, TAB 0 Refills Oxycodone-Acetaminophen (Oxycodone-Acetaminophen) 10-325 mg Tab 1 TAB PO Q6H PRN for PAIN, TAB 0 Refills Tizanidine (Tizanidine) 4 Mg Cap 4 MG PO BID for Migraines, CAP 0 Refills Trazodone (Trazodone) 100 Mg Tablet 250 MG PO HS for Control Depression, #30 TAB 0 Refills Discontinued Medications: Lorazepam (Lorazepam) 1 Mg Tab 1 MG PO Q8H PRN for ANXIETY, TAB 0 Refills Soledad Samuels MD Apr 07, 2017 15:45
[2017-04-07] MEDS ORDERED: DIAZ5 PO (15:48)
[2017-04-07] MEDS ORDERED: oxyCODONE SR PO (15:49)
[2017-04-07] MEDS ORDERED: PANT40TA3 PO (16:05)
[2017-04-07] MEDS ORDERED: CARA1TAB6 PO (16:05)
[2017-04-08] MEDS ORDERED: ACET325T15 PO (17:53)
[2017-04-08] MEDS ORDERED: Albuterol-Ipratropium Neb NEB (17:53)
[2017-04-08] MEDS ORDERED: PERI PO (17:53)
== END 2017-04-07 16:31 | DRG 28 ==
LOC: NEPC 16:45 → NEDA 22:30 → N06A 22:52
PROVIDERS: ADMIT Hospitalist; ATTEND Hospitalist
PROC: 009U3ZX Drainage of Spinal Canal, Percutaneous Approach, Diagnostic (ICD-10-PCS; 2017-03-28)
PROC: 0W3P8ZZ Control Bleeding in Gastrointestinal Tract, Via Natural or Artificial Opening Endoscopic (ICD-10-PCS; 2017-04-01)
PROC: 0DB68ZX Excision of Stomach, Via Natural or Artificial Opening Endoscopic, Diagnostic (ICD-10-PCS; 2017-04-01)
PROC: 0JPT0MZ Removal of Stimulator Generator from Trunk Subcutaneous Tissue and Fascia, Open Approach (ICD-10-PCS; 2017-04-05)
PROC: 00PU0MZ Removal of Neurostimulator Lead from Spinal Canal, Open Approach (ICD-10-PCS; principal; 2017-04-05 12:42)
DX: T85.733A Infection and inflammatory reaction due to implanted electronic neurostimulator of spinal cord, electrode (lead), initial encounter (principal); K26.4 Chronic or unspecified duodenal ulcer with hemorrhage; I95.9 Hypotension, unspecified; T85.112A Breakdown (mechanical) of implanted electronic neurostimulator of spinal cord electrode (lead), initial encounter; R65.10 Systemic inflammatory response syndrome (SIRS) of non-infectious origin without acute organ dysfunction; E66.01 Morbid (severe) obesity due to excess calories; G89.29 Other chronic pain; K44.9 Diaphragmatic hernia without obstruction or gangrene; N28.9 Disorder of kidney and ureter, unspecified; I10 Essential (primary) hypertension; R51 Headache; M54.5 Low back pain; M62.830 Muscle spasm of back; Z68.36 Body mass index [BMI] 36.0-36.9, adult; K29.70 Gastritis, unspecified, without bleeding; N20.0 Calculus of kidney; Y83.1 Surgical operation with implant of artificial internal device as the cause of abnormal reaction of the patient, or of later complication, without mention of misadventure at the time of the procedure; Z79.891 Long term (current) use of opiate analgesic; Z87.891 Personal history of nicotine dependence; H91.90 Unspecified hearing loss, unspecified ear; Z87.442 Personal history of urinary calculi
CPT/HCPCS: 62270; 70450; 71045; 72020; 72132; 74177; 76000; 77003; 80048; 80053; 80202; 81001; 82272; 82565; 82945; 83605; 83690; 83735; 84157; 85007; 85014; 85018; 85025; 85027; 85610; 85652; 85730; 86140; 86403; 86850; 86900; 86901; 86920; 87015; 87040; 87070; 87086; 87102; 87116; 87176; 87205; 87206; 87804; 88305; 88312; 89051; 93005; 96361; 96365; 96368; 96375; 96376; C9113; J0131; J0171; J0690; J0692; J0696; J1100; J1170; J1650; J2175; J2250; J2270; J2370; J2405; J2543; J3010; J3370; J7030; J7040; J7050; J7120; Q9967

== ENCOUNTER 2017-04-08 19:32 | Inpatient (IN) | payer BC ==
[~2017-04-08] VITALS: Ht 175.3 cm; Wt 111.0 kg
[~2017-04-08 19:32] MED LIST: ACET325T15 PO; Albuterol-Ipratropium Neb NEB; CARA1TAB6 PO; DIAZ5 PO; LORA1TAB12 PO; OXYC-405 PO; OXYC1TAB36 PO; PANT40TA3 PO; PERI PO; TIZA4CAP3 PO; TRAZ100T10 PO; oxyCODONE SR PO
[2017-04-08] MEDS ORDERED: SODIUM CHLOR 0.9% 250 ML INJ 250 ML IV ONE (21:15)
[2017-04-08] MEDS ORDERED: ONDANSETRON HCL 4 MG/2 ML VIAL IVP PRN (21:15)
[2017-04-08] MEDS ORDERED: LACTULOSE SYRUP 20 GM/30 ML CUP PO PRN (21:15)
[2017-04-08] MEDS ORDERED: SENNOSIDES 8.6 MG TAB PO PRN (21:15)
[2017-04-08] MEDS ORDERED: MAGNESIUM HYDROXIDE SUSP 30 ML CUP PO PRN (21:15)
[2017-04-08] MEDS ORDERED: NALOXONE HCL 0.4 MG/ML AMP IV PUSH PRN (21:15)
[2017-04-08] MEDS ORDERED: SODIUM CHLORIDE 0.9% FLUSH 10 ML FLUSH IV FLUSH PRN (21:15)
[2017-04-08] MEDS ORDERED: ACETAMINOPHEN 325 MG TAB PO PRN (21:15)
[2017-04-08] MEDS ORDERED: BISACODYL 10 MG SUPP RECTAL PRN (21:15)
[2017-04-08 21:30] VITALS: BP 101/51; PULSE 80; RESP 19; TEMP 98.4; O2SAT 98
[2017-04-08] MEDS ORDERED: HEPARIN-D5W 25,000 U/250 ML 250 ML IV PRN (21:45)
[2017-04-08 22:00] VITALS: PULSE 76
[2017-04-08] MEDS ORDERED: PILL SPLITTER OTHER PRN (22:00)
[2017-04-08 22:23] VITALS: BP 96/52; PULSE 71; RESP 12; TEMP 98.1; O2SAT 99
[2017-04-08] MEDS: PIPERACIL-TAZO 4.5 GM PREMIX 100 ML IV SCH (23:53)
[2017-04-09] VITALS (14 sets, daily range): BP systolic 89–125; BP diastolic 46–62; PULSE 60–87; RESP 12–23; TEMP 98.1–98.7; O2SAT 95–100
[2017-04-09] MEDS: RESP: ALBUTEROL 2.5 MG/IPRATROPIUM 0.5 MG NEB (SCH) NEB ×3 (00:01→16:16)
[2017-04-09] MEDS: ACETAMINOPHEN/HYDROcodone 325 MG/10 MG TAB PO PRN ×3 (00:26→16:40)
[2017-04-09] MEDS: HEPARIN-D5W 25,000 U/250 ML 250 ML IV PRN ×2 (01:54→15:50)
[2017-04-09 04:34] LABS: AUTOMATED NEUTROPHIL # 5.9 TH/MM3 (1.8-7.7); BASOPHIL # 0.1 TH/MM3 (0-0.2); BASOPHIL % 1.1 % (0.0-2.0); EOSINOPHIL # 0.1 TH/MM3 (0-0.4); EOSINOPHIL % 1.4 % (0.0-4.0); HEMATOCRIT 26.2 % (39.0-51.0); HEMOGLOBIN 8.7 GM/DL (13.0-17.0); LYMPH % 21.3 % (9.0-44.0); LYMPHOCYTE # 1.8 TH/MM3 (1.0-4.8); MEAN CELL VOLUME 89.9 FL (80.0-100.0); MEAN CORPUSCULAR HEMOGLOBIN 29.9 PG (27.0-34.0); MEAN CORPUSCULAR HGB CONC 33.3 % (32.0-36.0); MEAN PLATELET VOLUME 6.8 FL (7.0-11.0); MONO % 6.2 % (0.0-8.0); MONOCYTE # 0.5 TH/MM3 (0-0.9); PLATELET COUNT 291 TH/MM3 (150-450); RED BLOOD COUNT 2.92 MIL/MM3 (4.50-5.90); RED CELL DISTRIBUTION WIDTH 17.6 % (11.6-17.2); WHITE BLOOD COUNT 8.5 TH/MM3 (4.0-11.0)
[2017-04-09 04:54] LABS: BICARBONATE 28.8 MEQ/L (21.0-32.0); CALCIUM 7.5 MG/DL (8.5-10.1); CREATININE 0.85 MG/DL (0.60-1.30)
[2017-04-09] MEDS: PIPERACIL-TAZO 4.5 GM PREMIX 100 ML IV SCH ×4 (05:56→16:57)
[2017-04-09] MEDS: SUCRALFATE 1 GM TAB PO SCH ×2 (05:56→15:59)
[2017-04-09] MEDS: oxyCODONE HCL 40 MG CONTROLLED RELEASE TAB PO SCH ×2 (08:53→19:56)
[2017-04-09] MEDS: PANTOPRAZOLE SOD 40 MG DELAYED RELEASE TAB PO SCH ×2 (08:53→19:55)
[2017-04-09] MEDS: SODIUM CHLORIDE 0.9% FLUSH 10 ML FLUSH IV FLUSH SCH ×2 (09:00→19:56)
[2017-04-09] MEDS ORDERED: DOCUSATE SODIUM 50 MG/SENNA 8.6 MG TAB PO SCH (09:00)
[2017-04-09] MEDS: DOCUSATE SODIUM 50 MG/SENNA 8.6 MG TAB PO SCH ×2 (09:00→21:00)
--- NOTE | 2017-04-09 14:40 | HHI.HP ---
HPI Service [facility] Hospitalists Primary Care Physician No Primary Care Physician Admission Diagnosis Diagnoses: Chief Complaint: DVT, PE Travel History International Travel<30 Days: No Contact w/Intl Traveler <30 Da: No Traveled to Known Affected Are: No History of Present Illness Mr. Smith is a 61-year-old male with a past medical history significant for chronic pain who was recently admitted to the hospital for severe back pain and subsequently admitted to [facility] on 04/07/2017 and returned to the medical floor ( ICU) on 04/09/2017 due to DVT and PE. The patient originally came in to the hospital with severe back pain with fever and further evaluation indicated removal of the patient's spinal stimulator. Once the spinal stimulator was removed the patient's back pain improved significantly. The patient was taken off of antibiotics and cleared for discharge to rehabilitation. On 04/08/2017, he had a temp of 100.3F, tachycardic with heart rate 116. His mental blood pressure was 80s systolic. His pulse ox was 82-85%. Doppler ultrasound showed bilateral DVT. CT PE protocol indicated bilateral pulmonary embolism. Patient was subsequently started on heparin drip and admitted to ICU. At the time of this interview, patient is doing well. He is on supplemental oxygen via nasal cannula. Denies any chest pain, shortness of breath, fever or chills. He is tolerating diet well. He denies any history of any major bleeding. No changes in bowel or bladder habits. Review of Systems Except as stated in HPI: all other systems reviewed are Neg Past Family Social History Past Medical History Chronic back pain Cluster headaches Hypertension Past Surgical History Spinal stimulator placement and removal Reported Medications Current Medications Medications (Trade) Dose Ordered Sig/Boyd Route Start Time Stop Time Status Last Admin (NS Flush) 2 ml UNSCH PRN IV FLUSH 04/08/17 21:15 (NS Flush) 2 ml BID IV FLUSH 04/09/17 09:00 04/10/17 09:07 (Tylenol) 650 mg Q4H PRN PO 04/08/17 21:15 (Zofran Inj) 4 mg Q6H PRN IVP 04/08/17 21:15 (Narcan Inj) 0.4 mg UNSCH PRN IV PUSH 04/08/17 21:15 (Milk Of Magnesia Liq) 30 ml Q12H PRN PO 04/08/17 21:15 (Senokot) 17.2 mg Q12H PRN PO 04/08/17 21:15 (Dulcolax Supp) 10 mg DAILY PRN RECTAL 04/08/17 21:15 (Lactulose Liq) 30 ml DAILY PRN PO 04/08/17 21:15 Piperacillin Sod/ Tazobactam Sod 100 ml @ 200 mls/hr Q6H IV 04/09/17 00:00 04/10/17 05:11 (Duoneb Neb) 1 ampule Q8HR NEB NEB 04/09/17 00:00 04/10/17 08:34 (Carafate) 1 gm BIDAC PO 04/09/17 07:00 04/10/17 05:10 (OxyCONTIN CR) 40 mg Q12HR PO 04/09/17 09:00 04/10/17 09:07 (Fanny-Colace) 1 tab BID PO 04/09/17 09:00 04/10/17 09:06 (Protonix) 40 mg Q12HR PO 04/09/17 09:00 04/10/17 09:06 (Zanaflex) 4 mg Q12HR PO 04/09/17 09:00 04/10/17 09:06 (Desyrel) 250 mg HS PO 04/09/17 21:00 04/09/17 19:56 ([place] 10-325 Mg) 1 tab Q4H PRN PO 04/08/17 21:45 04/10/17 05:10 (Pill Splitter) 1 ea UNSCH PRN OTHER 04/08/17 22:00 (Eliquis) 10 mg BID PO 04/10/17 09:00 04/17/17 08:59 04/10/17 09:06 Allergies: Coded Allergies: No Known Allergies (Unverified , 03/26/17) Family History Mother from lung disease Social History The patient quit drinking in 1976. He is a social drinker. Physical Exam Vital Signs Vital Signs Date Time Temp Pulse Resp B/P (MAP) Pulse Ox O2 Delivery O2 Flow Rate FiO2 04/09/17 12:00 98.7 60 13 89/54 (66) 96 04/09/17 12:00 66 04/09/17 10:00 63 04/09/17 09:00 96 Nasal Cannula 4.00 04/09/17 08:12 98 Nasal Cannula 2.00 04/09/17 08:00 98.6 73 12 116/59 (78) 95 04/09/17 08:00 73 04/09/17 07:00 95 Nasal Cannula 2.00 04/09/17 06:00 72 04/09/17 04:00 98.7 72 12 99/52 (68) 96 04/09/17 04:00 72 04/09/17 02:00 80 04/09/17 01:26 21 04/09/17 00:02 100 Nasal Cannula 3.00 04/09/17 00:00 98.3 77 23 125/62 100 04/09/17 00:00 77 04/09/17 00:00 98.3 77 23 125/62 (83) 100 04/08/17 22:23 98.1 71 12 96/52 99 04/08/17 22:00 76 04/08/17 22:00 96 Nasal Cannula 4.00 04/08/17 21:30 98.4 80 19 101/51 98 Physical Exam GENERAL: This is a well-nourished, well-developed patient, in no apparent distress. SKIN: No rashes, ecchymoses or lesions. Warm and dry. HEAD: Atraumatic. Normocephalic. No temporal or scalp tenderness. EYES: Pupils equal round and reactive. No injection or drainage. ENT: Nose without bleeding, purulent drainage or septal hematoma. Airway patent. NECK: Trachea midline. No lymphadenopathy. Supple, nontender, no meningeal signs. CARDIOVASCULAR: Regular rate and rhythm without murmurs, gallops, or rubs. No JVD. RESPIRATORY: Clear to auscultation. Breath sounds equal bilaterally. No wheezes , rales, or rhonchi. GASTROINTESTINAL: Abdomen soft, non-tender, nondistended. No guarding. MUSCULOSKELETAL: Extremities without clubbing, cyanosis, or edema. NEUROLOGICAL: Awake and alert. Cranial nerves II through XII intact. No focal neurological deficits. Normal speech. Laboratory Laboratory Tests Test 04/09/17 01:22 04/09/17 03:34 04/09/17 09:15 Activated Partial Thromboplast Time 24.2 35.6 51.4 White Blood Count 8.5 Red Blood Count 2.92 Hemoglobin 8.7 Hematocrit 26.2 Mean Corpuscular Volume 89.9 Mean Corpuscular Hemoglobin 29.9 Mean Corpuscular Hemoglobin Concent 33.3 Red Cell Distribution Width 17.6 Platelet Count 291 Mean Platelet Volume 6.8 Neutrophils (%) (Auto) 70.0 Lymphocytes (%) (Auto) 21.3 Monocytes (%) (Auto) 6.2 Eosinophils (%) (Auto) 1.4 Basophils (%) (Auto) 1.1 Neutrophils # (Auto) 5.9 Lymphocytes # (Auto) 1.8 Monocytes # (Auto) 0.5 Eosinophils # (Auto) 0.1 Basophils # (Auto) 0.1 CBC Comment DIFF FINAL Differential Comment Blood Urea Nitrogen 9 Creatinine 0.85 Random Glucose 103 Calcium Level 7.5 Sodium Level 143 Potassium Level 3.9 Chloride Level 107 Carbon Dioxide Level 28.8 Anion Gap 7 Estimat Glomerular Filtration Rate 91 Result Diagram: 04/09/17 0334 04/09/17 0334 Imaging Last Impressions Lower Extremity Ultrasound 04/08/17 0000 Signed Impressions: Service Date/Time: Saturday, April 08, 2017 14:31 - CONCLUSION: The examination is positive for DVT bilaterally. Mikel Cunningham MD Chest X-Ray 04/08/17 0000 Signed Impressions: Service Date/Time: Saturday, April 08, 2017 08:49 - CONCLUSION: Removal epidural thoracic leads. Question as to you a patchy density obscuring silhouetting descending aorta in the retrocardiac region possible minimal early left lower lobe infiltrate. Ata Rodriguez MD CT Angiography 04/08/17 0000 Signed Impressions: Service Date/Time: Saturday, April 08, 2017 16:44 - CONCLUSION: 1. The examination is positive for pulmonary embolus bilaterally. 2. Small bilateral pleural effusions and dependent atelectasis. Mikel Cunningham MD Caprini VTE Risk Assessment Caprini VTE Risk Assessment: Mod/High Risk (score >= 2) Caprini Risk Assessment Model Point Value = 1 Point Value = 2 Point Value = 3 Point Value = 5 Age 41-60 Minor surgery BMI > 25 kg/m2 Swollen legs Varicose veins or History of unexplained or recurrent spontaneous Oral contraceptives or hormone replacement Sepsis (< 1 month) Serious lung disease, including pneumonia (< 1 month) Abnormal pulmonary function Acute myocardial infarction Congestive heart failure (< 1 month) History of inflammatory bowel disease Medical patient at bed rest Age 61-74 Arthroscopic surgery Major open surgery (> 45 min) Laparoscopic surgery (> 45 min) Malignancy Confined to bed (> 72 hours) Immobilizing plaster cast Central venous access Age >= 75 History of VTE Family history of VTE Factor V Leiden Prothrombin [id number] Lupus anticoagulant Anticardiolipin antibodies Elevated serum homocysteine Heparin-induced thrombocytopenia Other congenital or acquired thrombophilia Stroke (< 1 month) Elective arthroplasty Hip, pelvis, or leg fracture Acute spinal cord injury (< 1 month) Prophylaxis Regimen Total Risk Factor Score Risk Level Prophylaxis Regimen 0-1 Low Early ambulation 2 Moderate Order ONE of the following: *Sequential Compression Device (SCD) *Heparin 5000 units SQ BID 3-4 Higher Order ONE of the following medications: *Heparin 5000 units SQ TID *Enoxaparin/Lovenox 40 mg SQ daily (WT < 150 kg, CrCl > 30 mL/min) *Enoxaparin/Lovenox 30 mg SQ daily (WT < 150 kg, CrCl > 10-29 mL/min) *Enoxaparin/Lovenox 30 mg SQ BID (WT < 150 kg, CrCl > 30 mL/min) AND/OR *Sequential Compression Device (SCD) 5 or more Highest Order ONE of the following medications: *Heparin 5000 units SQ TID (Preferred with Epidurals) *Enoxaparin/Lovenox 40 mg SQ daily (WT < 150 kg, CrCl > 30 mL/min) *Enoxaparin/Lovenox 30 mg SQ daily (WT < 150 kg, CrCl > 10-29 mL/min) *Enoxaparin/Lovenox 30 mg SQ BID (WT < 150 kg, CrCl > 30 mL/min) AND *Sequential Compression Device (SCD) Assessment and Plan Problem List: (1) Pulmonary embolism ICD Code: I26.99 - Other pulmonary embolism without acute cor pulmonale (2) DVT (deep venous thrombosis) ICD Code: I82.409 - Acute embolism and thrombosis of unspecified deep veins of unspecified lower extremity Assessment and Plan Mr. Smith is a pleasant 61-year-old male with a history of chronic back pain who was admitted to [facility] on 04/07/2017. He developed fever, tachycardia and hypoxia. DVT and PE were detected on radiological studies. She was subsequently admitted to ICU under hospitalist service. - Acute bilateral pulmonary embolism - Acute bilateral lower extremity DVT - Patient was on heparin drip. We discontinued heparin drip this morning and started apixaban 10 mg twice a day. - If patient continues to do well today, we'll discuss with [facility] to see if patient can go back to rehabilitation. - Continue supplemental O2 to keep O2 sat > 90%. - Fever at [facility] was likely due to DVT PE. We'll discontinue antibiotics and observe patient off antibiotics. - Chronic back pain - [place] when necessary - Recent suspected upper GI bleed s/p EGD - Will continue PPI and Carafate. Hemoglobin is stable 9.5 on 04/10/2017. Full code. Apixaban. Can be transferred to the floor today and perhaps to [facility] if accepted back on 04/10/2017. Physician Certification 2 Midnight Certification Type: Admission for Inpatient Services Order for Inpatient Services The services are ordered in accordance with Medicare regulations or non- Medicare payer requirements, as applicable. In the case of services not specified as inpatient-only, they are appropriately provided as inpatient services in accordance with the 2-midnight benchmark. Estimated LOS (days): 2 days is the estimated time the patient will need to remain in the hospital, assuming treatment plan goals are met and no additional complications. Post-Hospital Plan: Home Dayna Woodall DO Apr 09, 2017 2:40 pm
[2017-04-09 15:55] LABS: INTERNATIONAL NORMALIZED RATIO 1.2 RATIO; PROTHROMBIN TIME - PATIENT 11.7 SEC (9.8-11.6)
[2017-04-09] MEDS: traZODone HCL 100 MG TAB PO SCH (19:56)
[2017-04-10] VITALS (8 sets, daily range): BP systolic 92–121; BP diastolic 50–59; PULSE 58–86; RESP 16–20; TEMP 96.7–99.1; O2SAT 92–96
[2017-04-10] MEDS: RESP: ALBUTEROL 2.5 MG/IPRATROPIUM 0.5 MG NEB (SCH) NEB ×3 (00:03→16:47)
[2017-04-10] MEDS: ACETAMINOPHEN/HYDROcodone 325 MG/10 MG TAB PO PRN ×5 (00:49→22:19)
[2017-04-10] MEDS: PIPERACIL-TAZO 4.5 GM PREMIX 100 ML IV SCH ×3 (00:49→12:23)
[2017-04-10] MEDS: SUCRALFATE 1 GM TAB PO SCH ×2 (05:10→16:34)
[2017-04-10] MEDS: HEPARIN-D5W 25,000 U/250 ML 250 ML IV PRN (05:55)
[2017-04-10 06:46] LABS: HEMATOCRIT 28.3 % (39.0-51.0); HEMOGLOBIN 9.5 GM/DL (13.0-17.0)
[2017-04-10] MEDS: APIXABAN 5 MG TABLET PO SCH ×2 (09:06→19:53)
[2017-04-10] MEDS: DOCUSATE SODIUM 50 MG/SENNA 8.6 MG TAB PO SCH ×2 (09:06→19:55)
[2017-04-10] MEDS: PANTOPRAZOLE SOD 40 MG DELAYED RELEASE TAB PO SCH ×2 (09:06→19:53)
[2017-04-10] MEDS: SODIUM CHLORIDE 0.9% FLUSH 10 ML FLUSH IV FLUSH SCH ×2 (09:07→19:55)
[2017-04-10] MEDS: oxyCODONE HCL 40 MG CONTROLLED RELEASE TAB PO SCH ×2 (09:07→19:56)
--- NOTE | 2017-04-10 09:46 | HHI.PR ---
Subjective Remarks Follow-up for DVT, PE. Patient is currently doing well. He is on nasal cannula. No fever or chills. Tolerating diet well. Objective Vitals Vital Signs Date Time Temp Pulse Resp B/P (MAP) Pulse Ox O2 Delivery O2 Flow Rate FiO2 04/10/17 08:37 96 Nasal Cannula 2.00 04/10/17 08:00 97.4 69 17 114/55 (74) 96 04/10/17 06:10 20 04/10/17 04:00 Nasal Cannula 4.00 04/10/17 04:00 98.1 58 18 92/50 (64) 96 04/10/17 04:00 61 04/10/17 00:04 96 Nasal Cannula 2.00 04/10/17 00:00 99.1 86 20 104/54 (71) 94 04/10/17 00:00 71 04/10/17 00:00 Nasal Cannula 4.00 04/09/17 20:56 20 04/09/17 20:00 84 04/09/17 19:36 98.1 87 20 125/59 (81) 95 04/09/17 19:35 Nasal Cannula 4.00 04/09/17 18:00 83 04/09/17 16:00 98.5 67 12 92/46 (61) 100 04/09/17 16:00 79 04/09/17 14:00 70 04/09/17 12:00 98.7 60 13 89/54 (66) 96 04/09/17 12:00 66 04/09/17 10:00 63 I/O 04/09/17 04/09/17 04/09/17 04/10/17 04/10/17 04/10/17 07:00 15:00 23:00 07:00 15:00 23:00 Intake Total 740 ml 720 ml 600 ml Output Total 780 ml 550 ml 1000 ml Balance -40 ml 170 ml -400 ml Intake Oral 240 ml 720 ml 400 ml IV Total 100 ml 200 ml Packed Cells 400 ml Output Urine Total 780 ml 550 ml 1000 ml # Bowel Movements 0 1 0 Result Diagram: 04/10/17 0615 04/09/17 0334 Objective Remarks GENERAL: Alert, oriented 3, NAD. SKIN: Warm and dry. HEAD: Normocephalic. EYES: No scleral icterus. No injection or drainage. NECK: Supple, trachea midline. No JVD or lymphadenopathy. CARDIOVASCULAR: Regular rate and rhythm without murmurs, gallops, or rubs. RESPIRATORY: Breath sounds equal bilaterally. No accessory muscle use. GASTROINTESTINAL: Abdomen soft, non-tender, nondistended. MUSCULOSKELETAL: No cyanosis, or edema. BACK: Nontender without obvious deformity. No CVA tenderness. Procedures None A/P Problem List: (1) Pulmonary embolism ICD Code: I26.99 - Other pulmonary embolism without acute cor pulmonale (2) DVT (deep venous thrombosis) ICD Code: I82.409 - Acute embolism and thrombosis of unspecified deep veins of unspecified lower extremity Assessment and Plan Mr. Smith is a pleasant 61-year-old male with a history of chronic back pain who was admitted to [facility] on 04/07/2017. He developed fever, tachycardia and hypoxia. DVT and PE were detected on radiological studies. She was subsequently admitted to ICU under hospitalist service. - Acute bilateral pulmonary embolism - Acute bilateral lower extremity DVT - Patient was on heparin drip. We discontinued heparin drip this morning and started apixaban 10 mg twice a day. - If patient continues to do well today, we'll discuss with [facility] to see if patient can go back to rehabilitation. - Continue supplemental O2 to keep O2 sat > 90%. - Fever at [facility] was likely due to DVT PE. Discontinue Zosyn. - Chronic back pain - [place] when necessary - Recent suspected upper GI bleed s/p EGD - Will continue PPI and Carafate. Hemoglobin is stable 9.5 on 04/10/2017. Full code. Apixaban. Discussed with RN. Possible discharge tomorrow 04/11/2017. Dayna Woodall DO Apr 10, 2017 9:46 am
[2017-04-10] MEDS: traZODone HCL 100 MG TAB PO SCH (19:53)
[2017-04-11] VITALS: BP 107/52; PULSE 74; RESP 18; TEMP 98.8; O2SAT 96
[2017-04-11] MEDS: RESP: ALBUTEROL 2.5 MG/IPRATROPIUM 0.5 MG NEB (SCH) NEB ×2 (00:15→09:23)
[2017-04-11 00:18] VITALS: O2SAT 95
[2017-04-11] MEDS: ACETAMINOPHEN/HYDROcodone 325 MG/10 MG TAB PO PRN ×2 (05:45→09:37)
[2017-04-11] MEDS: SUCRALFATE 1 GM TAB PO SCH (05:46)
[2017-04-11 08:00] VITALS: BP 121/58; PULSE 73; RESP 18; TEMP 97.4; O2SAT 93
[2017-04-11 09:26] VITALS: O2SAT 93
[2017-04-11] MEDS: oxyCODONE HCL 40 MG CONTROLLED RELEASE TAB PO SCH (09:37)
[2017-04-11] MEDS: PANTOPRAZOLE SOD 40 MG DELAYED RELEASE TAB PO SCH (09:37)
[2017-04-11] MEDS: DOCUSATE SODIUM 50 MG/SENNA 8.6 MG TAB PO SCH (09:38)
[2017-04-11] MEDS: APIXABAN 5 MG TABLET PO SCH (09:38)
[2017-04-11] MEDS ORDERED: OXYC40TA20 PO (10:19)
[2017-04-11] MEDS ORDERED: HYDR-3583 PO (10:19)
[2017-04-11] MEDS ORDERED: APIX5TAB PO ×2 (10:19→10:22)
--- NOTE | 2017-04-11 10:22 | HHI.DS ---
Discharge Summary Admission Date Apr 08, 2017 at 8:58 pm Discharge Date: Apr 11, 2017 Admitting Diagnosis (1) Pulmonary embolism ICD Code: I26.99 - Other pulmonary embolism without acute cor pulmonale Diagnosis: Principal Status: Acute (2) DVT (deep venous thrombosis) ICD Code: I82.409 - Acute embolism and thrombosis of unspecified deep veins of unspecified lower extremity Diagnosis: Principal Status: Acute Procedures None Brief History - From Admission Mr. Smith is a 61-year-old male with a past medical history significant for chronic pain who was recently admitted to the hospital for severe back pain and subsequently admitted to [facility] on 04/07/2017 and returned to the medical floor ( ICU) on 04/09/2017 due to DVT and PE. The patient originally came in to the hospital with severe back pain with fever and further evaluation indicated removal of the patient's spinal stimulator. Once the spinal stimulator was removed the patient's back pain improved significantly. The patient was taken off of antibiotics and cleared for discharge to rehabilitation. On 04/08/2017, he had a temp of 100.3F, tachycardic with heart rate 116. His mental blood pressure was 80s systolic. His pulse ox was 82-85%. Doppler ultrasound showed bilateral DVT. CT PE protocol indicated bilateral pulmonary embolism. Patient was subsequently started on heparin drip and admitted to ICU. At the time of this interview, patient is doing well. He is on supplemental oxygen via nasal cannula. Denies any chest pain, shortness of breath, fever or chills. He is tolerating diet well. He denies any history of any major bleeding. No changes in bowel or bladder habits. CBC/BMP: 04/10/17 0615 04/09/17 0334 Significant Findings Laboratory Tests Test 04/09/17 01:22 04/09/17 03:34 04/09/17 09:15 04/09/17 15:15 Activated Partial Thromboplast Time 24.2 SEC (24.3-30.1) 35.6 SEC (24.3-30.1) 51.4 SEC (24.3-30.1) 63.2 SEC (24.3-30.1) Red Blood Count 2.92 MIL/MM3 (4.50-5.90) Hemoglobin 8.7 GM/DL (13.0-17.0) Hematocrit 26.2 % (39.0-51.0) Red Cell Distribution Width 17.6 % (11.6-17.2) Mean Platelet Volume 6.8 FL (7.0-11.0) Calcium Level 7.5 MG/DL (8.5-10.1) Prothrombin Time 11.7 SEC (9.8-11.6) Test 04/09/17 20:08 04/10/17 06:15 04/11/17 07:19 Activated Partial Thromboplast Time 58.5 SEC (24.3-30.1) 79.1 SEC (24.3-30.1) Hemoglobin 9.5 GM/DL (13.0-17.0) Hematocrit 28.3 % (39.0-51.0) PE at Discharge GENERAL: Alert, oriented 3, NAD. SKIN: Warm and dry. HEAD: Normocephalic. EYES: No scleral icterus. No injection or drainage. NECK: Supple, trachea midline. No JVD or lymphadenopathy. CARDIOVASCULAR: Regular rate and rhythm without murmurs, gallops, or rubs. RESPIRATORY: Breath sounds equal bilaterally. No accessory muscle use. GASTROINTESTINAL: Abdomen soft, non-tender, nondistended. MUSCULOSKELETAL: No cyanosis, or edema. BACK: Nontender without obvious deformity. No CVA tenderness. Pt update on day of discharge Patient is doing well. No bleeding. No acute concerns. Tolerating diet well. Hospital Course Mr. Smith is a pleasant 61-year-old male with a history of chronic back pain who was admitted to [facility] on 04/07/2017. He developed fever, tachycardia and hypoxia. DVT and PE were detected on radiological studies. She was subsequently admitted to ICU under hospitalist service. - Acute bilateral pulmonary embolism - Acute bilateral lower extremity DVT - Patient was on heparin drip. We discontinued heparin drip and started apixaban 10 mg twice a day. - Patient continued to tolerate Apixaban and remained hemodynamically stable. - Continue supplemental O2 to keep O2 sat > 90%. - Fever at [facility] was likely due to DVT PE. Discontinued Zosyn. - Chronic back pain - [facility] when necessary - Recent suspected upper GI bleed s/p EGD - Will continue PPI and Carafate. Hemoglobin is stable 9.5 on 04/10/2017. Full code. Apixaban. Discharge to [facility] today. Hospitalist service can be consulted if needed. Pt Condition on Discharge: Good Discharge Disposition: Rehab Inpatient Discharge Time: > 30 minutes Discharge Instructions DIET: Follow Instructions for: As Tolerated, No Restrictions Activities you can perform: Regular-No Restrictions New Medications: Apixaban (Eliquis) 5 Mg Tab 5 MG PO BID for Blood Clot Prevention, #60 TAB 0 Refills START Apixaban 5mg BID on 04/17/2017 AM. Apixaban (Eliquis) 5 Mg Tab 10 MG PO BID for Blood Clot Prevention, #11 TAB START at 9PM on 04/11/2017. After this is done, start Apixaban 5mg BID. Hydrocodone/Acetaminophen (Hydrocodone-Acetamin 10-325 mg) 10 Mg-325 Mg Tablet 1 TAB PO Q4H PRN for pain 6-10, #20 TAB Oxycodone HCl (Oxycontin) 40 Mg Tab.er.12h 40 MG PO Q12HR for Pain Management, #20 TAB Continued Medications: Acetaminophen (Eq Acetaminophen) 325 Mg Tab 650 MG PO Q4H PRN for PAIN SCALE 1 TO 3, #1 TAB Diazepam (Valium) 5 Mg Tab 5 MG PO Q8H PRN for MUSCLE SPASM, #5 TAB Pantoprazole (Pantoprazole) 40 Mg Tab 40 MG PO Q12HR, #60 TAB Sennosides-Docusate Sodium (Gnp Senna Plus 8.6-50 mg) 8.6 Mg-50 Mg Tab 1 TAB PO BID, #1 TAB Sucralfate (Carafate) 1 Gram Tab 1 GM PO BIDAC, #60 TAB Tizanidine (Tizanidine) 4 Mg Cap 4 MG PO BID for Migraines, CAP 0 Refills Trazodone (Trazodone) 100 Mg Tablet 250 MG PO HS for Control Depression, #30 TAB 0 Refills Discontinued Medications: [Albuterol-Ipratropium Neb] () 1 AMPULE NEBU 1 AMPULE NEB Q8HR NEB, #1 Dayna Woodall DO Apr 11, 2017 10:22
== END 2017-04-11 11:46 | DRG 176 ==
LOC: N03A 20:58 → N03B 04-09 20:03 → N07B 04-10 06:58
PROVIDERS: ADMIT Hospitalist; ATTEND Hospitalist
DX: I26.99 Other pulmonary embolism without acute cor pulmonale (principal); I10 Essential (primary) hypertension; I82.403 Acute embolism and thrombosis of unspecified deep veins of lower extremity, bilateral; G89.29 Other chronic pain; M54.9 Dorsalgia, unspecified
CPT/HCPCS: 36430; 80048; 85014; 85018; 85025; 85610; 85730; 86850; 86900; 86901; 86920; 94640; 94664; J1644; J2543; J7050; P9016